=== PATIENT | female | born 1980 | race Caucasian/White ===

== ENCOUNTER 2019-04-04 09:54 | Observation (INO) ==
[2019-04-04] MEDS ORDERED: Aspirin 81 MG TAB.CHEW PO ONE (10:22)
--- NOTE | 2019-04-04 10:53 | Emergency Department Note ---
Disposition Clinical Impression: Palpitations, Heart murmur Syncope Qualifiers: Syncope type: unspecified Qualified Code(s): R55 - Syncope and collapse Chest pain Qualifiers: Chest pain type: unspecified Qualified Code(s): R07.9 - Chest pain, unspecified Disposition: Admitted As Inpatient Condition: Fair Referrals: Radha Asif CNP [Primary Care Provider] - Forms: ED Satisfaction Letter Time of Disposition: 15:08 Syncope HPI - General Chief Complaint: ED Syncope Stated Complaint: Chest tightness,Syncopal episode Time Seen by Provider: 04/04/19 10:13 Source: patient Mode of arrival: private vehicle Limitations: no limitations Nursing Notes Reviewed: Yes Vital Signs Reviewed: Yes - History of Present Illness HPI Narrative: 38-year-old nontoxic-appearing female arrives to the ED by private vehicle complaining of a syncopal episode at home around 4:30. Patient was taking her dog outside and when she passed out. When the patient came to, her head was laying on a landscaping timber and she had dropped her dog's leash. SHe states that she does have a headache but she has migraines and this is her "normal" headache. Patient states that after the syncopal episode her bilateral lower extremities were very weak and she could barely carry herself back into the house. Denies bilateral lower extremity swelling or tenderness. SHe states that bilateral lower extremity weakness has resolved. Patient denies shortness of breath. States that she came extremely diaphoretic after the syncopal episode. Patient complains of intermittent chest pressure that occurs at rest. She describes this chest pressure as "someone sitting on my chest". At its maximum after symptom onset, she rated it a 5 out of 10 on a 10 point scale. Currently, she rates it only a 1 out of 10 on a 10 point scale. Denies neck pain or back pain. She does state that she had a prodrome of palpitations, describing these as "my heart was trying to beat out of my chest". The patient's have resolved. She denies any prior cardiac history or previous similar symptoms. He is a current daily smoker. No history of DVT or pulmonary embolism. She does complain of some residual numbness and tingling of the left hand. She denies any visual disturbances, nausea, vomiting, or shortness of b reath. She denies any productive cough, pain with inspiration, or hemoptysis. Pt Subjective Complaint: loss of consciousness Onset (ago): hour(s) (Around 4:30 AM) Number of episodes: 1 Duration: other (unknown) Description of Event: other (Unwitnessed) Prodromal Symptoms: headache, lightheaded Witnessed: no Context: other (Patient was standing, holding dog's leash) Injuries Sustained Associated with Event: none Current Symptoms: headache (History of migraines states "normal"headache), other (Numbness to left hand and fingers) History: none Treatments prior to arrival: other (After episode patient rested in her bed) Associated trauma secondary to event: No - Related Data Home Medications Medication Instructions Recorded Confirmed Topiramate [Topamax] 50 mg PO BID 11/27/15 04/04/19 Gabapentin [Neurontin] 100 mg PO DAILY 04/04/19 04/04/19 Levothyroxine [Synthroid] 25 mcg PO 04/04/19 Omeprazole [PriLOSEC] 1 cap PO DAILY 04/04/19 04/04/19 Trazodone HCl 50 mg PO DAILY 04/04/19 04/04/19 Previous Rx's Medication Instructions Recorded Hyoscyamine SL [Levsin Sl] 0.125 mg SL Q4HR PRN #42 tab.subl 02/24/16 Allergies Allergy/AdvReac Type Severity Reaction Status Date / Time meperidine [From Demerol] Allergy Hives Verified 03/07/17 07:25 prochlorperazine Allergy Hives Verified 03/07/17 07:25 [From Compazine] promethazine [From Phenergan] Allergy Hives Verified 03/07/17 07:25 terbutaline [From Brethine] Allergy Hives Verified 03/07/17 07:25 All systems ED: reviewed and negative except as stated. Review of Systems: As Per HPI Constitutional: Denies: fever, chills, weakness, weight change Eyes: Denies: eye pain, eye discharge, vision change ENT ED: Denies: ear pain, throat pain, dental pain, hearing loss, epistaxis, congestion, dysphagia Cardiovascular: Reports: as per HPI, chest pain, palpitations (Intermittent "chest pressure"), syncope. Denies: dyspnea on exertion, edema Respiratory: Denies: cough, dyspnea, wheezes, hemoptysis, stridor Gastrointestinal: Denies: abdominal pain, nausea, vomiting, diarrhea, constipation, hematemesis, melena, hematochezia Genitourinary: Denies: dysuria, frequency, hematuria, discharge Musculoskeletal: Denies: back pain, neck pain, arthralgia, myalgia Integumentary: Denies: rash, abrasion, lesions Neurological: Reports: weakness (Bilateral lower extremities now resolved), paresthesias (Left palm and fingers). Denies: headache, numbness, confusion, abnormal gait, vertigo Psychiatric: Denies: anxiety, depression, suicidal thoughts, homicidal thoughts, auditory hallucinations, visual hallucinations Endocrine: Denies: fatigue Hematological/Lymphatic: Denies: easy bleeding, easy bruising Allergic/Immunologic: Denies: facial swelling, urticaria Past Medical History - Past Medical History Attestation: Yes The following information was validated with the patient. Source: patient, nursing notes reviewed Medical history: Reports: migraine, thyroid disease Surgical history: Reports: appendectomy, , cholecystectomy, thyroidectomy, other (tubal ligation) Psychiatric history: Reports: anxiety, depression [employer] history: Reports: endometriosis, bilateral tubal ligation LMP comments: other (Patient denies having periods. Received Depo-Provera shot last month) - Social History Smoking Status: Current every day smoker Smokeless Tobacco Status: No Alcohol use: Reports: rarely Drug use: Reports: none Physical Exam - General Limitations: no limitations General appearance: alert, in no apparent distress - Head Head exam: atraumatic, normocephalic, normal inspection - Eye Eye exam: Present: normal appearance, PERRL, EOMI. Absent: conjunctival injection - ENT ENT exam: mucous membranes moist - Neck Neck exam: Present: normal inspection, full ROM. Absent: tenderness, lymphadenopathy - Chest Chest inspection: Present: normal inspection, symmetric chest wall rise - Respiratory Respiratory exam: Present: normal lung sounds bilaterally. Absent: respiratory distress, wheezes, accessory muscle use - Cardiovascular Cardiovascular exam: Present: regular rate, normal rhythm, normal heart sounds - Abdominal Exam Abdominal exam: Present: soft, Non-Tender, normal bowel sounds. Absent: distention, guarding, rebound, rigidity - Extremities Exam Extremities exam: Present: normal inspection, full ROM, normal capillary refill. Absent: tenderness - Expanded Lower Extremity Exam Lower leg exam: Absent: Homans' sign - Back Exam Back exam: Present: normal inspection, full ROM. Absent: tenderness - Neurological Exam Neurological exam: Present: alert, oriented X3. Absent: motor sensory deficit - Expanded Neurological Exam Patient oriented to: Present: person, place, time Speech: Present: fluid speech Cranial nerves: EOM function (II, III, IV, ): Normal, facial sensation (V): Normal, facial palsy (VII): Normal, spinal accessory function (XI): Normal, tongue deviation (XII): Normal Cerebellar function: finger to nose: Normal, heel to garcia: Normal Motor strength - LUE: 5/5 Motor strength - RUE: 5/5 Motor strength - LLE: 5/5 Motor strength - RLE: 5/5 Sensory exam upper extremity: light touch: Normal Sensory exam lower extremity: light touch: Normal Coma Scale Eye Opening: Spontaneous Coma Scale Motor Response: Obeys Commands Coma Scale Verbal Response: Oriented Coma Scale Total: 15 - Psychiatric Psychiatric exam: Present: normal affect, normal mood - Skin Skin exam: Present: warm, dry, intact, normal color. Absent: rash, cyanosis, diaphoresis, erythema, pallor, mottled Course Course Narrative: Patient is currently asymptomatic. She is pain-free. She is no longer experiencing the palpitations. I have discussed this patient's case with Dr. Abernathy, ED attending. He has had a [id number] evaluation with the patient, reviewed her laboratory and radiology workup and agrees with consultation with cardiology. Dr. Abernathy conversed with Dr. Bess regarding this patient's case. The patient states that she has never had her heart murmur fully evaluated. She has no other cardiac history however does state that her daughter was born with congenital aortic stenosis which required surgical correction. Given these findings and the patient's symptoms, Dr. Bess recommends admission to medicine, obtaining an echocardiogram, and having cardiology consult with the patient in house. I discussed this plan with the patient the patient is in agreement. 1500: I spoke with Dr. Graves of the hospitalist service who has graciously accepted the patient for admission to the hospitalist care with in-house cardiology consultation. She does request neurology consultation as well. I w ill contact the on-call neurology specialist and a consultation will be placed to [facility]. 1530: I spoke with Brock Ayala CNP with the neurology group. He states that neurology will be happy to consult the patient in house. Vital Signs Temperature 98.4 F 04/04/19 09:56 Pulse Rate 88 04/04/19 09:56 Respiratory Rate 20 04/04/19 09:56 Blood Pressure 115/75 04/04/19 09:56 O2 Sat by Pulse Oximetry 98 04/04/19 09:56 Temperature 98.4 F 04/04/19 10:32 Pulse Rate 70 04/04/19 15:00 Respiratory Rate 16 04/04/19 15:00 Blood Pressure 100/63 04/04/19 15:00 O2 Sat by Pulse Oximetry 100 04/04/19 15:00 Oxygen Delivery Oxygen Delivery Room Air Syncope - Medical Records Medical records reviewed: Yes I reviewed the patient's medical records. - Lab Data Lab results reviewed: Yes I reviewed the patient's lab results. Lab results narrative: Lab Results 04/04/19 04/04/19 04/04/19 Range/Units 10:35 10:35 10:35 WBC 8.7 (4.3-11.1) K/mcL RBC 4.16 (3.82-4.97) M/mcL Hgb 12.8 (11.5-15.4) g/dL Hct 39.4 (35.3-44.9) % MCV 94.7 (83.0-100.0) fL MCH 30.8 (28.0-33.3) pg MCHC 32.5 (31.6-35.5) g/dL RDW 13.4 (11.5-14.5) % Plt Count 287 (140-400) K/mcL MPV 9.3 L (9.4-12.4) fL Immature Gran % 0.3 (0-4) % Seg Neutrophils % 81.8 % Lymphocytes % 11.0 % Monocytes % 6.1 % Eosinophils % 0.6 % Basophils % 0.2 % Neutrophils # 7.1 (1.6-8.9) K/mcL Lymphocytes # 1.0 (0.6-4.6) K/mcL Monocytes # 0.5 (0.0-1.3) K/mcL Eosinophils # 0.1 (0.0-0.6) K/mcL Basophils # 0.0 (0.0-0.2) K/mcL PT 11.8 (9.4-12.1) Seconds INR 1.0 APTT 28.8 (26.0-36.0) Seconds D-Dimer 1433 H (0-500) ng/mLFEU Sodium 141 (136-145) mEq/L Potassium 3.5 (3.5-5.1) mEq/L Chloride 111 H (98-107) mEq/L Carbon Dioxide 21 L (23-29) mEq/L BUN 15 (6-20) mg/dL Creatinine 0.80 (0.60-1.20) mg/dL Est GFR ( Amer) > 60 (> 60) Est GFR (Non-Af Amer) > 60 (> 60) BUN/Creatinine Ratio 19 (6-26) Glucose 94 (70-105) mg/dL Calculated Osmolality 293 (280-300) Calcium 8.9 (8.6-10.3) mg/dL Troponin I < 0.03 (< 0.04) ng/mL Urine Color (Yellow) Urine Clarity (Clear) Urine pH (5.0-8.0) pH Units Ur Specific [place] (1.010-1.025) Urine Protein (Neg-Trace) mg/dL Urine Glucose (UA) (Normal) mg/dL Urine Ketones (Negative) mg/dL Urine Blood (Negative) Urine Nitrite (Negative) Urine Bilirubin (Negative) Urine Urobilinogen (Normal) mg/dL Ur Leukocyte Esterase (Negative) Ur Culture Indicated? (NO) Urine Test (Negative) Urine Opiates Screen (Dewjkd=058) ng/mL Ur Barbiturates Screen (Schlcj=231) ng/mL Ur Phencyclidine Scrn (Cutoff=25) ng/mL Ur Amphetamines Screen (Xtgyaq=2740) ng/mL U Benzodiazepines Scrn (Eqhlmh=591) ng/mL Urine Cocaine Screen (Cutoff= 300) ng/mL U Marijuana (THC) Screen (Cutoff = 50) ng/mL Ur Drug Screen Interp 04/04/19 04/04/19 04/04/19 Range/Units 11:50 11:50 11:50 WBC (4.3-11.1) K/mcL RBC (3.82-4.97) M/mcL Hgb (11.5-15.4) g/dL Hct (35.3-44.9) % MCV (83.0-100.0) fL MCH (28.0-33.3) pg MCHC (31.6-35.5) g/dL RDW (11.5-14.5) % Plt Count (140-400) K/mcL MPV (9.4-12.4) fL Immature Gran % (0-4) % Seg Neutrophils % % Lymphocytes % % Monocytes % % Eosinophils % % Basophils % % Neutrophils # (1.6-8.9) K/mcL Lymphocytes # (0.6-4.6) K/mcL Monocytes # (0.0-1.3) K/mcL Eosinophils # (0.0-0.6) K/mcL Basophils # (0.0-0.2) K/mcL PT (9.4-12.1) Seconds INR APTT (26.0-36.0) Seconds D-Dimer (0-500) ng/mLFEU Sodium (136-145) mEq/L Potassium (3.5-5.1) mEq/L Chloride (98-107) mEq/L Carbon Dioxide (23-29) mEq/L BUN (6-20) mg/dL Creatinine (0.60-1.20) mg/dL Est GFR ( Amer) (> 60) Est GFR (Non-Af Amer) (> 60) BUN/Creatinine Ratio (6-26) Glucose (70-105) mg/dL Calculated Osmolality (280-300) Calcium (8.6-10.3) mg/dL Troponin I (< 0.04) ng/mL Urine Color Yellow (Yellow) Urine Clarity Clear (Clear) Urine pH 6.0 (5.0-8.0) pH Units Ur Specific [place] 1.015 (1.010-1.025) Urine Protein Negative (Neg-Trace) mg/dL Urine Glucose (UA) Normal (Normal) mg/dL Urine Ketones Negative (Negative) mg/dL Urine Blood Negative (Negative) Urine Nitrite Negative (Negative) Urine Bilirubin Negative (Negative) Urine Urobilinogen Normal (Normal) mg/dL Ur Leukocyte Esterase Negative (Negative) Ur Culture Indicated? NO (NO) Urine Test Negative (Negative) Urine Opiates Screen Negative (Kgwpum=113) ng/mL Ur Barbiturates Screen Negative (Elcwza=327) ng/mL Ur Phencyclidine Scrn Negative (Cutoff=25) ng/mL Ur Amphetamines Screen Negative (Duoyyn=1530) ng/mL U Benzodiazepines Scrn Negative (Jicnig=747) ng/mL Urine Cocaine Screen Negative (Cutoff= 300) ng/mL U Marijuana (THC) Screen Negative (Cutoff = 50) ng/mL Ur Drug Screen Interp See Below Result diagrams: 04/04/19 10:35 04/04/19 10:35 Lab Results 04/04/19 04/04/19 04/04/19 Range/Units 10:35 10:35 10:35 WBC 8.7 (4.3-11.1) K/mcL RBC 4.16 (3.82-4.97) M/mcL Hgb 12.8 (11.5-15.4) g/dL Hct 39.4 (35.3-44.9) % MCV 94.7 (83.0-100.0) fL MCH 30.8 (28.0-33.3) pg MCHC 32.5 (31.6-35.5) g/dL RDW 13.4 (11.5-14.5) % Plt Count 287 (140-400) K/mcL MPV 9.3 L (9.4-12.4) fL Immature Gran % 0.3 (0-4) % Seg Neutrophils % 81.8 % Lymphocytes % 11.0 % Monocytes % 6.1 % Eosinophils % 0.6 % Basophils % 0.2 % Neutrophils # 7.1 (1.6-8.9) K/mcL Lymphocytes # 1.0 (0.6-4.6) K/mcL Monocytes # 0.5 (0.0-1.3) K/mcL Eosinophils # 0.1 (0.0-0.6) K/mcL Basophils # 0.0 (0.0-0.2) K/mcL PT 11.8 (9.4-12.1) Seconds INR 1.0 APTT 28.8 (26.0-36.0) Seconds D-Dimer 1433 H (0-500) ng/mLFEU Sodium 141 (136-145) mEq/L Potassium 3.5 (3.5-5.1) mEq/L Chloride 111 H (98-107) mEq/L Carbon Dioxide 21 L (23-29) mEq/L BUN 15 (6-20) mg/dL Creatinine 0.80 (0.60-1.20) mg/dL Est GFR ( Amer) > 60 (> 60) Est GFR (Non-Af Amer) > 60 (> 60) BUN/Creatinine Ratio 19 (6-26) Glucose 94 (70-105) mg/dL Calculated Osmolality 293 (280-300) Calcium 8.9 (8.6-10.3) mg/dL Troponin I < 0.03 (< 0.04) ng/mL Urine Color (Yellow) Urine Clarity (Clear) Urine pH (5.0-8.0) pH Units Ur Specific [place] (1.010-1.025) Urine Protein (Neg-Trace) mg/dL Urine Glucose (UA) (Normal) mg/dL Urine Ketones (Negative) mg/dL Urine Blood (Negative) Urine Nitrite (Negative) Urine Bilirubin (Negative) Urine Urobilinogen (Normal) mg/dL Ur Leukocyte Esterase (Negative) Ur Culture Indicated? (NO) Urine Test (Negative) Urine Opiates Screen (Gsyukw=359) ng/mL Ur Barbiturates Screen (Hzqqdo=698) ng/mL Ur Phencyclidine Scrn (Cutoff=25) ng/mL Ur Amphetamines Screen (Nudqay=1927) ng/mL U Benzodiazepines Scrn (Sjkckv=653) ng/mL Urine Cocaine Screen (Cutoff= 300) ng/mL U Marijuana (THC) Screen (Cutoff = 50) ng/mL Ur Drug Screen Interp 04/04/19 04/04/19 04/04/19 Range/Units 11:50 11:50 11:50 WBC (4.3-11.1) K/mcL RBC (3.82-4.97) M/mcL Hgb (11.5-15.4) g/dL Hct (35.3-44.9) % MCV (83.0-100.0) fL MCH (28.0-33.3) pg MCHC (31.6-35.5) g/dL RDW (11.5-14.5) % Plt Count (140-400) K/mcL MPV (9.4-12.4) fL Immature Gran % (0-4) % Seg Neutrophils % % Lymphocytes % % Monocytes % % Eosinophils % % Basophils % % Neutrophils # (1.6-8.9) K/mcL Lymphocytes # (0.6-4.6) K/mcL Monocytes # (0.0-1.3) K/mcL Eosinophils # (0.0-0.6) K/mcL Basophils # (0.0-0.2) K/mcL PT (9.4-12.1) Seconds INR APTT (26.0-36.0) Seconds D-Dimer (0-500) ng/mLFEU Sodium (136-145) mEq/L Potassium (3.5-5.1) mEq/L Chloride (98-107) mEq/L Carbon Dioxide (23-29) mEq/L BUN (6-20) mg/dL Creatinine (0.60-1.20) mg/dL Est GFR ( Amer) (> 60) Est GFR (Non-Af Amer) (> 60) BUN/Creatinine Ratio (6-26) Glucose (70-105) mg/dL Calculated Osmolality (280-300) Calcium (8.6-10.3) mg/dL Troponin I (< 0.04) ng/mL Urine Color Yellow (Yellow) Urine Clarity Clear (Clear) Urine pH 6.0 (5.0-8.0) pH Units Ur Specific [place] 1.015 (1.010-1.025) Urine Protein Negative (Neg-Trace) mg/dL Urine Glucose (UA) Normal (Normal) mg/dL Urine Ketones Negative (Negative) mg/dL Urine Blood Negative (Negative) Urine Nitrite Negative (Negative) Urine Bilirubin Negative (Negative) Urine Urobilinogen Normal (Normal) mg/dL Ur Leukocyte Esterase Negative (Negative) Ur Culture Indicated? NO (NO) Urine Test Negative (Negative) Urine Opiates Screen Negative (Xpedrd=170) ng/mL Ur Barbiturates Screen Negative (Xlrkix=401) ng/mL Ur Phencyclidine Scrn Negative (Cutoff=25) ng/mL Ur Amphetamines Screen Negative (Xcreir=4456) ng/mL U Benzodiazepines Scrn Negative (Wmlukm=760) ng/mL Urine Cocaine Screen Negative (Cutoff= 300) ng/mL U Marijuana (THC) Screen Negative (Cutoff = 50) ng/mL Ur Drug Screen Interp See Below 04/04/19 Range/Units 13:38 WBC (4.3-11.1) K/mcL RBC (3.82-4.97) M/mcL Hgb (11.5-15.4) g/dL Hct (35.3-44.9) % MCV (83.0-100.0) fL MCH (28.0-33.3) pg MCHC (31.6-35.5) g/dL RDW (11.5-14.5) % Plt Count (140-400) K/mcL MPV (9.4-12.4) fL Immature Gran % (0-4) % Seg Neutrophils % % Lymphocytes % % Monocytes % % Eosinophils % % Basophils % % Neutrophils # (1.6-8.9) K/mcL Lymphocytes # (0.6-4.6) K/mcL Monocytes # (0.0-1.3) K/mcL Eosinophils # (0.0-0.6) K/mcL Basophils # (0.0-0.2) K/mcL PT (9.4-12.1) Seconds INR APTT (26.0-36.0) Seconds D-Dimer (0-500) ng/mLFEU Sodium (136-145) mEq/L Potassium (3.5-5.1) mEq/L Chloride (98-107) mEq/L Carbon Dioxide (23-29) mEq/L BUN (6-20) mg/dL Creatinine (0.60-1.20) mg/dL Est GFR ( Amer) (> 60) Est GFR (Non-Af Amer) (> 60) BUN/Creatinine Ratio (6-26) Glucose (70-105) mg/dL Calculated Osmolality (280-300) Calcium (8.6-10.3) mg/dL Troponin I < 0.03 (< 0.04) ng/mL Urine Color (Yellow) Urine Clarity (Clear) Urine pH (5.0-8.0) pH Units Ur Specific [place] (1.010-1.025) Urine Protein (Neg-Trace) mg/dL Urine Glucose (UA) (Normal) mg/dL Urine Ketones (Negative) mg/dL Urine Blood (Negative) Urine Nitrite (Negative) Urine Bilirubin (Negative) Urine Urobilinogen (Normal) mg/dL Ur Leukocyte Esterase (Negative) Ur Culture Indicated? (NO) Urine Test (Negative) Urine Opiates Screen (Osvylo=616) ng/mL Ur Barbiturates Screen (Uqolzc=862) ng/mL Ur Phencyclidine Scrn (Cutoff=25) ng/mL Ur Amphetamines Screen (Ueqvza=2433) ng/mL U Benzodiazepines Scrn (Pzwiho=759) ng/mL Urine Cocaine Screen (Cutoff= 300) ng/mL U Marijuana (THC) Screen (Cutoff = 50) ng/mL Ur Drug Screen Interp - Radiology Data Radiology results reviewed: Yes I reviewed the patient's radiology results. Chest X-Ray 04/04/19 10:22 IMPRESSION: No acute process. D/ / Edgar Coronado MD / Edgar Coronado MD Interpreting Provider: Edgar Coronado MD Head CT 04/04/19 11:04 IMPRESSION: Stable appearance of the brain with no acute intracranial abnormality. D/ / Jose Armando Rojas MD / Jose Armando Rojas MD Interpreting Provider: Jose Armando Rojas MD Chest CTA 04/04/19 12:42 IMPRESSION: 1. No evidence for acute pulmonary embolism. 2. No evidence for pneumonia. 3. A hyperdense 12 mm posterior left breast nodule along the nipple line probably a cyst. Consider ultrasound correlation. D/ / Suraj Marie MD / Suraj Marie MD Interpreting Provider: Suraj Marie MD - EKG Data EKG attestation: Yes I reviewed and interpreted this EKG. EKG results narrative: EKG shows a normal sinus rhythm with left axis deviation. Ventricular rate 82 bpm. MS interval 140, QRS duration 92, QT/QTc interval 353/and 392. No ectopy noted. No ST elevation or significant depressions. No significant change in morphology when compared to an EKG dated from 11/20/18.
[2019-04-04 11:17] LABS: Basophils % 0.2 %; Eosinophils # 0.1 K/mcL (0.0-0.6); Eosinophils % 0.6 %; Hematocrit 39.4 % (35.3-44.9); Hemoglobin 12.8 g/dL (11.5-15.4); Immature Granulocytes % 0.3 % (0-4); Mean Corpuscular HGB Conc 32.5 g/dL (31.6-35.5); Mean Corpuscular Hemoglobin 30.8 pg (28.0-33.3); Mean Corpuscular Volume 94.7 fL (83.0-100.0); Mean Platelet Volume 9.3 fL (9.4-12.4); Monocytes # 0.5 K/mcL (0.0-1.3); Monocytes % 6.1 %; Neutrophils # 7.1 K/mcL (1.6-8.9); Platelet Count 287 K/mcL (140-400); Red Blood Count 4.16 M/mcL (3.82-4.97); Red Cell Distribution Width 13.4 % (11.5-14.5); Segmented Neutrophils % 81.8 %
[2019-04-04 11:26] LABS: BUN/Creatinine Ratio 19 (6-26); Blood Urea Nitrogen 15 mg/dL (6-20); Calcium 8.9 mg/dL (8.6-10.3); Carbon Dioxide 21 mEq/L (23-29); Chloride 111 mEq/L (98-107); Glucose 94 mg/dL (70-105); Osmolality,Calculated 293 (280-300); Potassium 3.5 mEq/L (3.5-5.1); Sodium 141 mEq/L (136-145); Troponin I < 0.03 ng/mL (< 0.04); eGFR For Non-African Americans > 60 (> 60)
[2019-04-04 11:30] LABS: Prothrombin Time 11.8 Seconds (9.4-12.1)
[2019-04-04 11:32] LABS: Activated Partial Thrombo Time 28.8 Seconds (26.0-36.0)
[2019-04-04 12:09] LABS: Bilirubin,Urine Negative (Negative); Blood,Urine Negative (Negative); Clarity,Urine Clear (Clear); Color,Urine Yellow (Yellow); Glucose,Urine (UA) Normal (Normal); Ketones,Urine Negative (Negative); Leukocyte Esterase,Urine Negative (Negative); Nitrite,Urine Negative (Negative); Protein,Urine Negative (Neg-Trace); Specific Gravity,Urine 1.015 (1.010-1.025); Urobilinogen,Urine Normal (Normal)
[2019-04-04 12:14] LABS: Amphetamine Screen,Urine Negative ng/mL (Cutoff=1000); Barbiturate Screen,Urine Negative ng/mL (Cutoff=200); Benzodiazepines Screen,Urine Negative ng/mL (Cutoff=200); Cannabinoid Screen,Urine Negative ng/mL (Cutoff = 50); Cocaine Screen,Urine Negative ng/mL (Cutoff= 300); Opiate Screen,Urine Negative ng/mL (Cutoff=300); Phencyclidine Screen,Urine Negative ng/mL (Cutoff=25)
[2019-04-04] MEDS ORDERED: Isovue-370 500 ML BOTTLE IVP ONE (12:42)
--- NOTE | 2019-04-04 14:45 | Emergency Department Note ---
Disposition Clinical Impression: Syncope, Palpitations, Chest pain, Heart murmur Disposition: Admitted As Inpatient Condition: Fair Referrals: Radha Asif CNP [Primary Care Provider] - Forms: ED Satisfaction Letter Time of Disposition: 14:45 General Adult HPI - General Chief complaint: ED Syncope Stated complaint: Chest tightness,Syncopal episode Time Seen by Provider: 04/04/19 10:13 Source: patient Mode of arrival: private vehicle Limitations: no limitations - History of Present Illness Pain Scale: 2 - Related Data Home Medications Medication Instructions Recorded Confirmed Topiramate [Topamax] 50 mg PO BID 11/27/15 09/12/16 FLUoxetine HCl [Prozac] 40 mg PO DAILY 09/12/16 09/12/16 Metoprolol XL (24 HR) Succ [Toprol 25 mg PO DAILY 09/12/16 09/12/16 Xl] Oxaprozin 600 mg PO BID 09/12/16 09/12/16 Pantoprazole Sodium [Protonix] 40 mg PO DAILY 09/12/16 09/12/16 Potassium Citrate [Urocit-K] 15 meq PO DAILY 09/12/16 09/12/16 hydrOXYzine HCl [Hydroxyzine HCl] 50 mg PO DAILY 09/12/16 09/12/16 Previous Rx's Medication Instructions Recorded Psyllium Husk [Fiber] 0.52 gm PO BID 30 Days capsule 01/17/16 Hydrocodone/Acetaminophen [[place] 1 tab PO Q6H PRN #12 tab 01/24/16 5-325 Tablet] Acetaminophen w/Cod 300-30 mg 1 each PO Q4HR PRN #20 tablet 02/06/16 [Tylenol w/Codeine #3] Hyoscyamine SL [Levsin Sl] 0.125 mg SL Q4HR PRN #42 tab.subl 02/24/16 Omeprazole [PriLOSEC] 40 mg PO DAILY #30 capsule. 02/24/16 raNITIdine HCl [Zantac] 150 mg PO BID #60 tablet 02/24/16 Ibuprofen [Motrin] 600 mg PO TID PRN #30 tab 06/23/16 ALPRAZolam [Xanax 0.5 MG Tablet] 0.25 mg PO PRN PRN #0 09/13/16 Ciprofloxacin [Cipro] 500 mg PO BID #20 tablet 12/22/16 Ondansetron ODT [Zofran ODT] 4 mg SL Q6HR PRN #10 tab.rapdis 12/22/16 metroNIDAZOLE [Flagyl] 500 mg PO TID #30 tablet 12/22/16 predniSONE [PredniSONE] 40 mg PO DAILY #14 tablet 12/22/16 cephALEXin [Keflex] 500 mg PO QID #40 capsule 02/13/17 metroNIDAZOLE [Flagyl] 500 mg PO BID #20 tablet 02/13/17 Clindamycin [Cleocin] 150 mg PO Q6HR #40 capsule 03/07/17 HYDROcodone/Acet 5/325 mg [[place] 1 tab PO Q6H PRN #10 tab 03/07/17 5-325 mg] Ciprofloxacin [Cipro] 500 mg PO BID #20 tablet 06/21/17 Ondansetron ODT [Zofran ODT] 4 mg SL Q6HR #8 tab.rapdis 06/21/17 PredniSONE [Deltasone] 40 mg PO DAILY 7 Days tablet 06/21/17 metroNIDAZOLE [Flagyl] 500 mg PO TID #30 tablet 06/21/17 Ondansetron ODT [Zofran ODT] 4 mg SL Q6HR #10 tab.rapdis 07/25/17 predniSONE [PredniSONE] 20 mg PO DAILY #20 tablet 07/25/17 PredniSONE [Deltasone] 20 mg PO DAILY #8 tablet 09/07/17 Naproxen 375 mg PO BID #10 tablet 02/06/19 Ondansetron ODT [Zofran ODT] 4 mg SL Q8HR PRN #12 tab.rapdis 02/06/19 Allergies Allergy/AdvReac Type Severity Reaction Status Date / Time meperidine [From Demerol] Allergy Hives Verified 03/07/17 07:25 prochlorperazine Allergy Hives Verified 03/07/17 07:25 [From Compazine] promethazine [From Phenergan] Allergy Hives Verified 03/07/17 07:25 terbutaline [From Brethine] Allergy Hives Verified 03/07/17 07:25 Constitutional: Denies: fever, chills, weakness, weight change Eyes: Denies: eye pain, eye discharge, vision change ENT ED: Denies: ear pain, throat pain, dental pain, hearing loss, epistaxis, congestion, dysphagia Cardiovascular: Reports: as per HPI, chest pain, palpitations (Intermittent "chest pressure"), syncope. Denies: dyspnea on exertion, edema Respiratory: Denies: cough, dyspnea, wheezes, hemoptysis, stridor Gastrointestinal: Denies: abdominal pain, nausea, vomiting, diarrhea, constipation, hematemesis, melena, hematochezia Genitourinary: Denies: dysuria, frequency, hematuria, discharge Musculoskeletal: Denies: back pain, neck pain, arthralgia, myalgia Integumentary: Denies: rash, abrasion, lesions Neurological: Reports: weakness (Bilateral lower extremities now resolved), paresthesias (Left palm and fingers). Denies: headache, numbness, confusion, abnormal gait, vertigo Psychiatric: Denies: anxiety, depression, suicidal thoughts, homicidal thoughts, auditory hallucinations, visual hallucinations Endocrine: Denies: fatigue Hematological/Lymphatic: Denies: easy bleeding, easy bruising Allergic/Immunologic: Denies: facial swelling, urticaria Past Medical History - Past Medical History Medical history: Reports: migraine, thyroid disease Surgical history: Reports: appendectomy, , cholecystectomy, thyroidectomy, other (tubal ligation) Psychiatric history: Reports: anxiety, depression RANGE AID history: Reports: endometriosis, bilateral tubal ligation - Social History Smoking Status: Current every day smoker Smokeless Tobacco Status: No Alcohol use: Reports: rarely Drug use: Reports: none Physical Exam - General Limitations: no limitations General appearance: alert, in no apparent distress Course Vital Signs Temperature 98.4 F 04/04/19 09:56 Pulse Rate 88 04/04/19 09:56 Respiratory Rate 20 04/04/19 09:56 Blood Pressure 115/75 04/04/19 09:56 O2 Sat by Pulse Oximetry 98 04/04/19 09:56 Temperature 98.4 F 04/04/19 10:32 Pulse Rate 82 04/04/19 14:00 Respiratory Rate 16 04/04/19 14:00 Blood Pressure 95/71 04/04/19 14:00 O2 Sat by Pulse Oximetry 100 04/04/19 14:00 Oxygen Delivery Oxygen Delivery Room Air Medical Decision Making - Lab Data Result diagrams: 04/04/19 10:35 04/04/19 10:35 Lab Results 05/30/19 05/30/19 05/30/19 Range/Units 10:35 10:35 10:35 WBC 8.7 (4.3-11.1) K/mcL RBC 4.16 (3.82-4.97) M/mcL Hgb 12.8 (11.5-15.4) g/dL Hct 39.4 (35.3-44.9) % MCV 94.7 (83.0-100.0) fL MCH 30.8 (28.0-33.3) pg MCHC 32.5 (31.6-35.5) g/dL RDW 13.4 (11.5-14.5) % Plt Count 287 (140-400) K/mcL MPV 9.3 L (9.4-12.4) fL Immature Gran % 0.3 (0-4) % Seg Neutrophils % 81.8 % Lymphocytes % 11.0 % Monocytes % 6.1 % Eosinophils % 0.6 % Basophils % 0.2 % Neutrophils # 7.1 (1.6-8.9) K/mcL Lymphocytes # 1.0 (0.6-4.6) K/mcL Monocytes # 0.5 (0.0-1.3) K/mcL Eosinophils # 0.1 (0.0-0.6) K/mcL Basophils # 0.0 (0.0-0.2) K/mcL PT 11.8 (9.4-12.1) Seconds INR 1.0 APTT 28.8 (26.0-36.0) Seconds D-Dimer 1433 H (0-500) ng/mLFEU Sodium 141 (136-145) mEq/L Potassium 3.5 (3.5-5.1) mEq/L Chloride 111 H (98-107) mEq/L Carbon Dioxide 21 L (23-29) mEq/L BUN 15 (6-20) mg/dL Creatinine 0.80 (0.60-1.20) mg/dL Est GFR ( Amer) > 60 (> 60) Est GFR (Non-Af Amer) > 60 (> 60) BUN/Creatinine Ratio 19 (6-26) Glucose 94 (70-105) mg/dL Calculated Osmolality 293 (280-300) Calcium 8.9 (8.6-10.3) mg/dL Troponin I < 0.03 (< 0.04) ng/mL Urine Color (Yellow) Urine Clarity (Clear) Urine pH (5.0-8.0) pH Units Ur Specific [place] (1.010-1.025) Urine Protein (Neg-Trace) mg/dL Urine Glucose (UA) (Normal) mg/dL Urine Ketones (Negative) mg/dL Urine Blood (Negative) Urine Nitrite (Negative) Urine Bilirubin (Negative) Urine Urobilinogen (Normal) mg/dL Ur Leukocyte Esterase (Negative) Ur Culture Indicated? (NO) Urine Test (Negative) Urine Opiates Screen (Jokmqq=633) ng/mL Ur Barbiturates Screen (Zszeae=349) ng/mL Ur Phencyclidine Scrn (Cutoff=25) ng/mL Ur Amphetamines Screen (Ynjzcs=6118) ng/mL U Benzodiazepines Scrn (Amroah=418) ng/mL Urine Cocaine Screen (Cutoff= 300) ng/mL U Marijuana (THC) Screen (Cutoff = 50) ng/mL Ur Drug Screen Interp 04/04/19 04/04/19 04/04/19 Range/Units 11:50 11:50 11:50 WBC (4.3-11.1) K/mcL RBC (3.82-4.97) M/mcL Hgb (11.5-15.4) g/dL Hct (35.3-44.9) % MCV (83.0-100.0) fL MCH (28.0-33.3) pg MCHC (31.6-35.5) g/dL RDW (11.5-14.5) % Plt Count (140-400) K/mcL MPV (9.4-12.4) fL Immature Gran % (0-4) % Seg Neutrophils % % Lymphocytes % % Monocytes % % Eosinophils % % Basophils % % Neutrophils # (1.6-8.9) K/mcL Lymphocytes # (0.6-4.6) K/mcL Monocytes # (0.0-1.3) K/mcL Eosinophils # (0.0-0.6) K/mcL Basophils # (0.0-0.2) K/mcL PT (9.4-12.1) Seconds INR APTT (26.0-36.0) Seconds D-Dimer (0-500) ng/mLFEU Sodium (136-145) mEq/L Potassium (3.5-5.1) mEq/L Chloride (98-107) mEq/L Carbon Dioxide (23-29) mEq/L BUN (6-20) mg/dL Creatinine (0.60-1.20) mg/dL Est GFR ( Amer) (> 60) Est GFR (Non-Af Amer) (> 60) BUN/Creatinine Ratio (6-26) Glucose (70-105) mg/dL Calculated Osmolality (280-300) Calcium (8.6-10.3) mg/dL Troponin I (< 0.04) ng/mL Urine Color Yellow (Yellow) Urine Clarity Clear (Clear) Urine pH 6.0 (5.0-8.0) pH Units Ur Specific [place] 1.015 (1.010-1.025) Urine Protein Negative (Neg-Trace) mg/dL Urine Glucose (UA) Normal (Normal) mg/dL Urine Ketones Negative (Negative) mg/dL Urine Blood Negative (Negative) Urine Nitrite Negative (Negative) Urine Bilirubin Negative (Negative) Urine Urobilinogen Normal (Normal) mg/dL Ur Leukocyte Esterase Negative (Negative) Ur Culture Indicated? NO (NO) Urine Test Negative (Negative) Urine Opiates Screen Negative (Cycili=478) ng/mL Ur Barbiturates Screen Negative (Plkthz=150) ng/mL Ur Phencyclidine Scrn Negative (Cutoff=25) ng/mL Ur Amphetamines Screen Negative (Vjrngm=7316) ng/mL U Benzodiazepines Scrn Negative (Nqunnh=938) ng/mL Urine Cocaine Screen Negative (Cutoff= 300) ng/mL U Marijuana (THC) Screen Negative (Cutoff = 50) ng/mL Ur Drug Screen Interp See Below 04/04/19 Range/Units 13:38 WBC (4.3-11.1) K/mcL RBC (3.82-4.97) M/mcL Hgb (11.5-15.4) g/dL Hct (35.3-44.9) % MCV (83.0-100.0) fL MCH (28.0-33.3) pg MCHC (31.6-35.5) g/dL RDW (11.5-14.5) % Plt Count (140-400) K/mcL MPV (9.4-12.4) fL Immature Gran % (0-4) % Seg Neutrophils % % Lymphocytes % % Monocytes % % Eosinophils % % Basophils % % Neutrophils # (1.6-8.9) K/mcL Lymphocytes # (0.6-4.6) K/mcL Monocytes # (0.0-1.3) K/mcL Eosinophils # (0.0-0.6) K/mcL Basophils # (0.0-0.2) K/mcL PT (9.4-12.1) Seconds INR APTT (26.0-36.0) Seconds D-Dimer (0-500) ng/mLFEU Sodium (136-145) mEq/L Potassium (3.5-5.1) mEq/L Chloride (98-107) mEq/L Carbon Dioxide (23-29) mEq/L BUN (6-20) mg/dL Creatinine (0.60-1.20) mg/dL Est GFR ( Amer) (> 60) Est GFR (Non-Af Amer) (> 60) BUN/Creatinine Ratio (6-26) Glucose (70-105) mg/dL Calculated Osmolality (280-300) Calcium (8.6-10.3) mg/dL Troponin I < 0.03 (< 0.04) ng/mL Urine Color (Yellow) Urine Clarity (Clear) Urine pH (5.0-8.0) pH Units Ur Specific [place] (1.010-1.025) Urine Protein (Neg-Trace) mg/dL Urine Glucose (UA) (Normal) mg/dL Urine Ketones (Negative) mg/dL Urine Blood (Negative) Urine Nitrite (Negative) Urine Bilirubin (Negative) Urine Urobilinogen (Normal) mg/dL Ur Leukocyte Esterase (Negative) Ur Culture Indicated? (NO) Urine Test (Negative) Urine Opiates Screen (Iregix=924) ng/mL Ur Barbiturates Screen (Kyxawv=813) ng/mL Ur Phencyclidine Scrn (Cutoff=25) ng/mL Ur Amphetamines Screen (Xmsvwa=7675) ng/mL U Benzodiazepines Scrn (Jowbqn=747) ng/mL Urine Cocaine Screen (Cutoff= 300) ng/mL U Marijuana (THC) Screen (Cutoff = 50) ng/mL Ur Drug Screen Interp Attestation Statement - Attestation Attestation: I have seen this patient with the mid level provider. I personally evaluated this patient. I reviewed the charting by the mid-level provider and in agreement with the charting including past medical history family history review of systems current history and physical examination laboratory testing and imaging. Please see documentation by the mid-level provider for full H&P and documentation. Patient presented emergency room with chief complaint of chest pain and syncope. The patient states she got up at about 4:00 this morning and walk her dog, she states that she was walking the dog and did not get very far when she felt a weird sensation in her chest felt like her heart skipped a beat and the next thing she knew she woke up on the ground, she states that she try to get up but was so weak in her legs that she had a hard time and ended up having to crawl back to the house. Patient states she sat on the couch for a while seemed to get better she did have a secondary episode of some chest discomfort and some palpitations did not actually pass out. She states it kind of went away and she was feeling better considered going to her workout class, but just felt fatigued and just did not feel right so eventually she got up the energy to come to the emergency department. She has never expressed anything like this in the past. She denies significant family history of cardiac disease although reports that her daughter had aortic stenosis requiring surgery as a child. She states that she was told several years ago that she had a heart murmur but never had any myriam luation thereof. She does not recall being told this is a child but has never had it evaluated as an adult. She denies recent travel surgery or immobilization. She endorses no current chest pain states that she just feels fatigued. She has no history of any cardiac related issues. On physical examination alert oriented 3 in no acute distress lungs are clear full nontender range motion of her neck. No JVD no carotid bruits. The patient does have a 306 systolic murmur, does not specifically sound like a blowing murmur, does not radiate to the carotids. No other abnormal heart sounds. No evidence of DVT. No focal neurologic abdomen modality. EKG was a normal sinus rhythm with no evidence of acute ischemia or hyperkalemia. CBC basic metabolic profile cardiac enzymes 2 sets were all within acceptable limits. D-dimer was elevated. CT PE protocol was ordered, which showed no evidence of acute findings. Secondary to her having a syncopal event, unwitnessed, with some weakness although it was bilateral lower extremities, a head CT was ordered which showed no evidence of acute findings. I contacted cardiology, Dr. Bess, to help out with outpatient follow-up, with consideration of Holter monitor or echocardiogram as an outpatient, However after discussion with cardiology in relation to this patient's symptomatology, he has requested that the patient be admitted for further evaluation of chest pain and syncope, he will provide consultation and has asked that the hospitalist admit the patient.
[2019-04-04] MEDS ORDERED: Ibuprofen 600 MG TABLET PO ONE (15:19)
[2019-04-04] MEDS ORDERED: traZODone 50 MG TABLET PO ONE (22:29)
[2019-04-04] MEDS ORDERED: Topiramate 25 MG TABLET PO ONE (22:30)
[2019-04-04] MEDS: Ibuprofen 400 MG TABLET PO PRN (22:54)
[2019-04-05] MEDS ORDERED: Naloxone 0.4 MG/ML INJ IVP PRN (02:26)
--- NOTE | 2019-04-05 03:06 | Internal Med History&Physical ---
Date of Encounter: 04/05/19 Time of Encounter: 01:30 Internal Medicine - H&P: HPI Chief complaint: Syncope, Chest Pain Admitted From: Home Plans for Post Hospital Care: Home History of present illness: Ms. Ayers is a 38 year old female with past medical history significant for heart murmur, thyroid disease, GERD, endometriosis, anxiety, depression, and tobacco abuse who presents for complaints of syncopal episode. Reports she got up yesterday morning to take her dog outside and felt like her heart skipped a beat and she completely passed out loosing consciousness and suspects she may have struck her head. Denies any feelings of lightheadedness or dizziness prior to her syncopal episode. When she woke up she reports being very diaphoretic and feeling very fatigued. She stated that her legs were both very weak and she had difficulty standing immediately after. Shortly after that she developed what she describes as a fluttering in her chest accompanied by chest pressure rated at 3/10 and numbness and tingling to her left hand. Symptoms resolved after a few minutes without intervention. She reports previous history of syncopal episode around one year ago but denies any other similar symptoms. How ever, further chart review shows other previous syncopal episodes. Reports known history of cardiac murmur but denies any previous work up for it. Also reported headache in ER that has since resolved, but describes it as being similar to what she experiences with her migraines. Symptoms remain resolved at this time. Currently denies any headache, numbness, tingling, dizziness, chest pain, shortness of breath, abdominal pain, bowel or bladder changes. ER reported EKG as sinus rhythm with left axis deviation, no ST elevation or significant depressions, and no significant change in morphology when compared to EKG from November 2018. ER completed a CT of the head which showed a stable appearance of the brain and no acute intracranial abnormality. ER also completed a chest x-ray which showed no acute process. Labs in ER showed an elevated d-dimer at 1433. ER also obtained CTA of the chest which showed no evidence for acute pulmonary embolism, no evidence of pneumonia, and a hyperden se 12 mm posterior left breast nodule on the nipple line that is suspected to be a cyst and recommends ultrasound for further evaluation. ER contacted on-call cardiology Dr. Bess who recommended obtaining an echocardiogram and cardiology would see in consult. ER also contacted on-call neurology Brock Ayala CNP who also agreed to see patient in consult. Past Med Surg Social Fam HX - Past Medical History Medical history: migraine, thyroid disease Psychiatric history: anxiety, depression - Past Surgical History Surgical History: appendectomy, , cholecystectomy, thyroidectomy, other Additional surgical history: R ovary and r fallopian tube removed - Social History Smoking Status: Current every day smoker Smokeless Tobacco Status: No Alcohol use: rarely Drug use: none - Family History Father Living Status: Still Living Hx Family Cardiac Disorders: Yes ([place]) Hx Family Respiratory Disorders: No Hx Family Cancer: No Hx Family GI Disorders: No Hx Family Endocrine Disorder: No Hx Family Neuromuscular Disorders: No Hx Family Neurologic Disorders: No Hx Family HEENT Disorders: No Hx Family Autoimmune Disorders: No Mother Living Status: Still Living Hx Family Cardiac Disorders: No Hx Family Respiratory Disorders: No Hx Family Cancer: No Hx Family GI Disorders: No Hx Family Endocrine Disorder: Yes (DM) Hx Family Neuromuscular Disorders: No Hx Family Neurologic Disorders: No Hx Family HEENT Disorders: No Hx Family Autoimmune Disorders: No Internal Medicine - H&P: Meds Hyoscyamine SL [Levsin Sl] 0.125 mg SL Q4HR PRN #42 tab.subl 02/24/16 [Rx] Gabapentin [Neurontin] 300 mg PO HS 04/04/19 [History] Levothyroxine [Synthroid] 25 mcg PO Q48H 04/04/19 [History] Omeprazole [PriLOSEC] 40 mg PO DAILY 04/04/19 [History] Topiramate 50 mg PO BID 04/04/19 [History] Trazodone HCl 50 mg PO HS 04/04/19 [History] Allergy/AdvReac Type Severity Reaction Status Date / Time meperidine [From Demerol] Allergy Hives Verified 03/07/17 07:25 prochlorperazine Allergy Hives Verified 03/07/17 07:25 [From Compazine] promethazine [From Phenergan] Allergy Hives Verified 03/07/17 07:25 terbutaline [From Brethine] Allergy Hives Verified 03/07/17 07:25 All Systems PM: A 10-system review of systems was performed and is negative for pertinent findings except as documented above in the HPI. - Constitutional Vitals: Temp Pulse Resp BP Pulse Ox 98.8 F 84 12 97/61 97 04/04/19 23:08 04/04/19 23:08 04/04/19 23:08 04/04/19 23:08 04/04/19 23:08 Exam: General: Alert and oriented. Skin:Normal color, no rash, no lesions. HEENT:Pupils equal, round and reactive. Cardiovascular:Chronic murmur noted. No JVD. Pulse regular. Lungs:Normal breath sounds, no wheezes or crackles. Abdomen:Soft, non-tender, no rigidity. Extremities:No deformity, no edema or tenderness, no joint swelling or clubbing. Neurological:Normal cognition and motor skills. NIHSS 0.. GCS 15. Pulses:Carotid and radial pulses normal +2. Rest of the physical exam is non contributory. Internal Med - H&P Results - Labs CBC & Chem 7: 04/04/19 10:35 04/04/19 10:35 Labs: Short CBC 04/04/19 Range/Units 10:35 WBC 8.7 (4.3-11.1) K/mcL Hgb 12.8 (11.5-15.4) g/dL Hct 39.4 (35.3-44.9) % Plt Count 287 (140-400) K/mcL Neutrophils # 7.1 (1.6-8.9) K/mcL BMP 04/04/19 10:35 Sodium 141 Potassium 3.5 Chloride 111 H Carbon Dioxide 21 L BUN 15 Creatinine 0.80 Glucose 94 Calcium 8.9 Cardiac Enzymes 04/04/19 04/04/19 04/04/19 Range/Units 10:35 13:38 23:55 Troponin I < 0.03 < 0.03 < 0.03 (< 0.04) ng/mL Urine 04/04/19 Range/Units 11:50 Urine Color Yellow (Yellow) Urine Clarity Clear (Clear) Urine pH 6.0 (5.0-8.0) pH Units Ur Specific [place] 1.015 (1.010-1.025) Urine Protein Negative (Neg-Trace) mg/dL Urine Glucose (UA) Normal (Normal) mg/dL - Impressions ITS Impressions Chest X-Ray 04/04/19 10:22 IMPRESSION: No acute process. D/ / Edgar Coronado MD / Edgar Coronado MD Interpreting Provider: Edgar Coronado MD Head CT 04/04/19 11:04 IMPRESSION: Stable appearance of the brain with no acute intracranial abnormality. D/ / Jose Armando Rojas MD / Jose Armando Rojas MD Interpreting Provider: Jose Armando Rojas MD Chest CTA 04/04/19 12:42 IMPRESSION: 1. No evidence for acute pulmonary embolism. 2. No evidence for pneumonia. 3. A hyperdense 12 mm posterior left breast nodule along the nipple line probably a cyst. Consider ultrasound correlation. D/ / Suraj Marie MD / Suraj Marie MD Interpreting Provider: Suraj Marie MD Echocardiogram 04/04/19 14:48 Impressions: LVEF 65-70%. Normal LV chamber size, wall thickness and function. Normal right ventricular structure and function. Mild tricuspid regurgitation. No pulmonary hypertension. Left Ventricular Wall Motion: Rest Echo Findings All wall segments showed normal motion. Findings: Study Quality * Technically adequate exam. ECG Findings * Normal sinus rhythm. Left Ventricle * LVEF 65-70%. * Normal LV chamber size, wall thickness and systolic function. * Normal left ventricular diastolic function. Right Ventricle * Normal right ventricular structure and function. Left Atrium * Normal left atrial size. Right Atrium * Normal right atrial size. Interatrial Septum * No evidence of PFO by color Doppler. Aortic Valve * Trileaflet aortic valve with normal function. * No aortic stenosis. Elevated transvalvular and LVOT gradient due to dynamic LV. * No aortic regurgitation. Mitral Valve * Normal mitral valve structure. * No mitral stenosis. * Trace mitral regurgitation. Tricuspid Valve * Normal tricuspid valve structure. * No tricuspid stenosis. * Mild tricuspid regurgitation. * Estimated RVSP is 32 mmHg. * Estimated RA pressure is 8 mmHg. * No pulmonary hypertension. Pulmonic Valve * Pulmonic valve is not well visualized. * No pulmonic stenosis. * No pulmonic regurgitation. Aorta * Normally sized aortic root. Pericardium * The pericardium appears normal. IVC * The IVC is dilated. * > 50% respiratory change - Assessment and Plan (1) Syncope Current Visit: Yes Status: Acute Assessment and plan: Continuous cardiac monitoring. Echocardiogram ordered in ER. Neurology consulted by ER and will see in consult. Cardiology consulted by ER and will see in consult. Carotid Dopplers ordered. Orthostatic vital signs ordered. Qualifiers: Qualified Code(s): R55 - Syncope and collapse (2) Chest pain Current Visit: Yes Status: Acute Assessment and plan: Currently resolved. Occurred after syncopal episode. Continuous cardiac monitoring. Echocardiogram ordered by ER. Initial troponin negative, serial troponins ordered. Cardiology consulted by ER, will see patient in consult. Qualifiers: Chest pain type: unspecified Qualified Code(s): R07.9 - Chest pain, unspecified (3) Left hand paresthesia Current Visit: Yes Status: Acute Assessment and plan: Occurred with episode of chest pressure. Remains resolved at this time. Neurology consulted by ER and will see in consult. (4) Breast nodule Current Visit: Yes Status: Acute Assessment and plan: CTA of chest showed a hyperdense 12 mm posterior left breast nodule along the nipple line likely indicating a cyst recommending ultrasound for further evalua tion. Ultrasound ordered. (5) Cardiac murmur Current Visit: Yes Status: Chronic Assessment and plan: Known chronic murmur. Denies any previous workup. Echocardiogram ordered by ER. Cardiology consult ordered by ER, will see in consult. (6) Tobacco abuse Current Visit: Yes Status: Chronic Assessment and plan: Cessation strongly encouraged. - Time Spent With Patient Total time spent is greater than 50% in coordination of care (as documented) at patient's floor/unit and/or counseling patient:
[2019-04-05] MEDS ORDERED: Hyoscyamine SL 0.125 MG TAB.SUBL SL PRN (03:34)
[2019-04-05] MEDS ORDERED: Levothyroxine 25 MCG TABLET PO SCH (06:30)
[2019-04-05 06:52] LABS: Basophils % 0.7 %; Eosinophils # 0.2 K/mcL (0.0-0.6); Eosinophils % 3.1 %; Hematocrit 35.7 % (35.3-44.9); Hemoglobin 11.5 g/dL (11.5-15.4); Immature Granulocytes % 0.3 % (0-4); Lymphocytes % 32.6 %; Mean Corpuscular HGB Conc 32.2 g/dL (31.6-35.5); Mean Corpuscular Hemoglobin 30.9 pg (28.0-33.3); Mean Platelet Volume 9.5 fL (9.4-12.4); Monocytes # 0.4 K/mcL (0.0-1.3); Monocytes % 6.9 %; Neutrophils # 3.4 K/mcL (1.6-8.9); Platelet Count 269 K/mcL (140-400); Red Blood Count 3.72 M/mcL (3.82-4.97); Red Cell Distribution Width 13.5 % (11.5-14.5); Segmented Neutrophils % 56.4 %
[2019-04-05 07:16] LABS: BUN/Creatinine Ratio 17 (6-26); Blood Urea Nitrogen 12 mg/dL (6-20); Calcium 8.7 mg/dL (8.6-10.3); Carbon Dioxide 20 mEq/L (23-29); Chloride 112 mEq/L (98-107); Glucose 88 mg/dL (70-105); Osmolality,Calculated 293 (280-300); Potassium 3.5 mEq/L (3.5-5.1); Sodium 142 mEq/L (136-145); eGFR For Non-African Americans > 60 (> 60)
[2019-04-05] MEDS: Topiramate 25 MG TABLET PO SCH ×2 (08:50→21:07)
--- NOTE | 2019-04-05 09:02 | Neurology - Consult Note ---
Date of Encounter: 04/05/19 Time of Encounter: 09:00 Assessment and Plan (1) Syncope Current Visit: Yes Status: Chronic Patient has experienced an episode of syncope which I suspect is due to a vasovagal event. Upon awakening she was very diaphoretic. She denied any chest pain denied any headache previous to the event. Denied any visual changes. I am doubtful of seizure activity. Currently she is on telemetry and I agree that the cardiogenic etiologies should be ruled out. However neuroimaging and neurologic examination were normal. At this juncture I see no reason to suspect that there was a primary central nervous system etiology to explain this event. Otherwise, we will reevaluate at your request. Qualifiers: Syncope type: unspecified Qualified Code(s): R55 - Syncope and collapse History of Present Illness HPI: Ms. 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 Patient said she woke up at about 4:30 in the morning to let her dog out. She stated that while she was out with her dog she felt her heart beating fast. She states that she remembers falling and remembers the dog leash slipping out of her hand but does not remember anything else. She seems that she lost consciousness. She states when she woke up she was on the ground apparently her head and neck were laying on something in the yard but she did not suffer any trauma to the head and neck. No contusions or abrasions were noted. Denies any prodrome. However after arousing she was diffusely diaphoretic and states that her legs were weak. She stumbled apparently fell several times. Again she denied any headache denied any prodrome such as paresthesias confusion numbness tingling or weakness. She only felt her heart beating rapidly for a few seconds. She is not certain how long she was unconscious for. When she went into the house she did not seek medical attention immediately. Palate she went home and went to bed and woke up for 5 hours later and was supposed to go work out with her daughter. She states that she still did not feel well and was only then that she decided to seek medical attention. I did ask about any stress she denies this, she denies any dietary changes, she denied any chest pain she denied starting on any new medications. Nothing about this scenario suggestive of seizure activity. Electrolyte panel, serum glucose, ur ine tox screen and CT scan of the head were all negative. She is currently on telemetry. Past Med Surg Social Fam HX - Past Medical History Medical history: migraine, thyroid disease Psychiatric history: anxiety, depression - Past Surgical History Surgical History: appendectomy, , cholecystectomy, thyroidectomy, other Additional surgical history: R ovary and r fallopian tube removed - Social History Smoking Status: Current every day smoker Smokeless Tobacco Status: No Alcohol use: rarely Drug use: none - Family History Father Living Status: Still Living Hx Family Cardiac Disorders: Yes ([place]) Hx Family Respiratory Disorders: No Hx Family Cancer: No Hx Family GI Disorders: No Hx Family Endocrine Disorder: No Hx Family Neuromuscular Disorders: No Hx Family Neurologic Disorders: No Hx Family HEENT Disorders: No Hx Family Autoimmune Disorders: No Mother Living Status: Still Living Hx Family Cardiac Disorders: No Hx Family Respiratory Disorders: No Hx Family Cancer: No Hx Family GI Disorders: No Hx Family Endocrine Disorder: Yes ([place]) Hx Family Neuromuscular Disorders: No Hx Family Neurologic Disorders: No Hx Family HEENT Disorders: No Hx Family Autoimmune Disorders: No Medications and Allergies Hyoscyamine SL [Levsin Sl] 0.125 mg SL Q4HR PRN #42 tab.subl 02/24/16 [Rx] Gabapentin [Neurontin] 300 mg PO HS 04/04/19 [History] Levothyroxine [Synthroid] 25 mcg PO Q48H 04/04/19 [History] Omeprazole [PriLOSEC] 40 mg PO DAILY 04/04/19 [History] Topiramate 50 mg PO BID 04/04/19 [History] Trazodone HCl 50 mg PO HS 04/04/19 [History] Allergy/AdvReac Type Severity Reaction Status Date / Time meperidine [From Demerol] Allergy Hives Verified 03/07/17 07:25 prochlorperazine Allergy Hives Verified 03/07/17 07:25 [From Compazine] promethazine [From Phenergan] Allergy Hives Verified 03/07/17 07:25 terbutaline [From Brethine] Allergy Hives Verified 03/07/17 07:25 All Systems: The remainder of the systems were reviewed and are negative Review of Systems: The balance of the systems review is negative. Physical Examination - Vital Signs Vital Signs: Initial Vital Signs Temp Pulse Resp BP Pulse Ox 98.4 F 88 20 115/75 98 04/04/19 09:56 04/04/19 09:56 04/04/19 09:56 04/04/19 09:56 04/04/19 09:56 - Exam Exam: General Examination: *CONSTITUTIONAL: normal *GENERAL APPEARANCE OF PATIENT appears healthy and well groomed *EYES: pupils equal, round, reactive to light and accommodation, conjunctiva clear without masses or ulcerations, fundi normal. *CARDIOVASCULAR no peripheral edema, distal temperature normal, dorsalis pedis pulses normal. Refer to vital signs Musculoskeletal: *GAIT AND STATION normal, with normal Romberg testing, no abnormalities such as broad base gait or spasticity *ASSESSMENT OF MUSCLE STRENGTH IN THE UPPER AND LOWER EXTREMITIES deltoid, bicep, tricep, change of address clerk strength, hip flexors ,anterior tibialis, dorsoflexion of the foot normal. *MUSCLE TONE IN THE UPPER AND LOWER EXTREMITIES normal. No abnormal movements, fasciculations or atrophy identified. Neurological: *ORIENTATION to time and place *RECURRENT AND REMOTE MEMORY intact *ATTENTION AND CONCENTRATION are normal *LANGUAGE FUNCTION no significant aphasia or dysarthia was noted. *FUND OF KNOWLEDGE aware of current events, past history, vocabulary *MENTAL attention span and concentration normal. *CN II optic fundi were normal, no papilledema noted. *CN III,IV, PERRLA extraocular eye movements were full, no nystagmus and no ptosis noted. *CN V shows normal sensation and jaw opens symmetrically. *CN VII shows normal facial movement symmetrically, upper and lower bilaterally. *CN VIII shows no significant hearing loss on examination in the office. *CN IX,,X palate elevated symmetrically and normal gag reflex was noted. *CN XI normal strength in the sternocleidomastoid muscles, symmetrical shoulder shrugging. *CN XII tongue protruded in the midline, with normal strength and movement. *SENSORY EXAMINATION pinprick sensation intact, and light touch(vibration sense). *REFLEXES: deep tendon reflexes were normal and symmetrical , grade 2/4 diffusely, no pathological reflexes were noted. *CEREBELLAR TESTING normal finger to nose, heel/knee/garcia, and tandem walk. *PAIN LEVEL Results - Laboratory Findings CBC and BMP: 04/05/19 05:57 04/05/19 05:57 Abnormal lab findings: Abnormal lab results RBC 3.72 M/mcL (3.82-4.97) L 04/05/19 05:57 MPV 9.3 fL (9.4-12.4) L 04/04/19 10:35 1433 ng/mLFEU (0-500) H 04/04/19 10:35 Chloride 112 mEq/L (98-107) H 04/05/19 05:57 Carbon Dioxide 20 mEq/L (23-29) L 04/05/19 05:57 Consult Discharge Plan - Plan Referrals: Radha Asif, [facility] [Primary Care Provider] -
--- NOTE | 2019-04-05 11:43 | Electrocardiograph Report ---
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
--- NOTE | 2019-04-05 11:49 | Cardiology Consult Note ---
Date of Encounter: 04/05/19 Time of Encounter: 09:00 Assessment and Plan (1) Syncope Current Visit: Yes Status: Chronic Per cardiology: -?vasovagal syncope. -orthostatics negative. -TTE with LVEF preserved, no wall motion abnormalities. -ECG with SR. -NO events on telemetry. -Will check excercise ECG. Qualifiers: Syncope type: unspecified Qualified Code(s): R55 - Syncope and collapse (2) Palpitations Current Visit: Yes Status: Acute Per cardiology: -Reports palpitations 4 hours after syncopal event. -Telemetry reviewed with rare PVCs, rare PACs. No signifcant events on tele. -Denies current palpitations. -Will check excercise ECG. (3) Chest pain Current Visit: Yes Status: Acute Per cardiology: -Reports atypical chest pain. -Trops negative. -TTE with LVEF preserved, no wall motion abnormalities. -Will check exercise ECG. Qualifiers: Chest pain type: unspecified Qualified Code(s): R07.9 - Chest pain, unspecified Discussion w patient/family: The assessment and plan as outlined above was discussed with the patient and/or family members who expressed understanding and agreement. All questions were answered. Thank you for involving us in the care of your patient. Please call with any questions. Discussed and reviewed with . History of Present Illness Consult date: 04/04/19 Requesting physician: Earle Negrete Consult reason: syncope Chief complaint: syncope History of present illness: Ms. Ayers is a 38 year old female with a relevant past medical history of migraines, palpitations, anxiety, ulcerative colitis, thyroidectomy, who presented to [facility] with complaints of syncopal event. Patient states yesterday at 0430, when she was taking her dog out for a walk, felt her heart pounding and then the next thing she remembers, she woke up in the flower bed. Denies dizziness, lightheadedness. Denies visual changes. Denies loss of bowel or bladder. States she went and laid on the couch. Paeint states about 4 hours later, while on the couch, felt palpitations, fluttering, and chest pressure. Patient states that's when she decided to come into ER. Patient denies any symptoms since arrival to [facility]. Past Med Surg Social Fam HX - Past Medical History Attestation: Yes The following information was validated with the patient. Source: patient, old records reviewed Medical history: migraine, thyroid disease Psychiatric history: anxiety, depression - Past Surgical History Surgical History: appendectomy, , cholecystectomy, thyroidectomy, other Additional surgical history: R ovary and r fallopian tube removed - Social History Smoking Status: Current every day smoker Smokeless Tobacco Status: No Alcohol use: rarely Drug use: none - Family History Father Living Status: Still Living Hx Family Cardiac Disorders: Yes ([place]) Hx Family Respiratory Disorders: No Hx Family Cancer: No Hx Family GI Disorders: No Hx Family Endocrine Disorder: No Hx Family Neuromuscular Disorders: No Hx Family Neurologic Disorders: No Hx Family HEENT Disorders: No Hx Family Autoimmune Disorders: No Mother Living Status: Still Living Hx Family Cardiac Disorders: No Hx Family Respiratory Disorders: No Hx Family Cancer: No Hx Family GI Disorders: No Hx Family Endocrine Disorder: Yes (DM) Hx Family Neuromuscular Disorders: No Hx Family Neurologic Disorders: No Hx Family HEENT Disorders: No Hx Family Autoimmune Disorders: No Medications and Allergies Hyoscyamine SL [Levsin Sl] 0.125 mg SL Q4HR PRN #42 tab.subl 02/24/16 [Rx] Gabapentin [Neurontin] 300 mg PO HS 04/04/19 [History] Levothyroxine [Synthroid] 25 mcg PO Q48H 04/04/19 [History] Omeprazole [PriLOSEC] 40 mg PO DAILY 04/04/19 [History] Topiramate 50 mg PO BID 04/04/19 [History] Trazodone HCl 50 mg PO HS 04/04/19 [History] Allergy/AdvReac Type Severity Reaction Status Date / Time meperidine [From Demerol] Allergy Hives Verified 03/07/17 07:25 prochlorperazine Allergy Hives Verified 03/07/17 07:25 [From Compazine] promethazine [From Phenergan] Allergy Hives Verified 03/07/17 07:25 terbutaline [From Brethine] Allergy Hives Verified 03/07/17 07:25 All Systems Review: The remainder of the systems were reviewed and are negative - Cardiovascular Cardiovascular: as per HPI, chest pain at rest, palpitations - Neurological Neurological: syncope Physical Examination Vital Signs, Last 4 Hours Temp Pulse Resp BP Pulse Ox 04/05/19 10:51 97.8 F 73 14 99/61 96 04/05/19 08:39 97.4 F L 68 14 100/67 98 04/05/19 07:51 98.6 F 60 15 98/66 97 General: Conversant, No Apparent Distress HEENT: Atraumatic, Normocephaly, Mucus Membranes Moist Neck: No JVD, Normal carotid pulses Cardiac: Reg Rate and Rhythm, Normal S1 and S2, No Murmur Lungs: Normal Breath Sounds, No Wheeze, Rales, Rhonchi Neuro: Alert and responsive, No focal deficits noted Abdomen: Soft, Non-Tender Skin: No rashes noted on visualized skin Musculoskeletal: No Chest Wall Tenderness Extremities: No Clubbing, No Cyanosis, No Edema, Normal Pulses Results 04/05/19 05:57 04/05/19 05:57 Lab Results Impressions Chest X-Ray 04/04/19 10:22 IMPRESSION: No acute process. D/ / Edgar Coronado MD / Edgar Coronado MD Interpreting Provider: Edgar Coronado MD Head CT 04/04/19 11:04 IMPRESSION: Stable appearance of the brain with no acute intracranial abnormality. D/ / Jose Armando Rojas MD / Jose Armando Rojas MD Interpreting Provider: Jose Armando Rojas MD Chest CTA 04/04/19 12:42 IMPRESSION: 1. No evidence for acute pulmonary embolism. 2. No evidence for pneumonia. 3. A hyperdense 12 mm posterior left breast nodule along the nipple line probably a cyst. Consider ultrasound correlation. D/ / Suraj Marie MD / Suraj Marie MD Interpreting Provider: Suraj Marie MD Echocardiogram 04/04/19 14:48 Impressions: LVEF 65-70%. Normal LV chamber size, wall thickness and function. Normal right ventricular structure and function. Mild tricuspid regurgitation. No pulmonary hypertension. Left Ventricular Wall Motion: Rest Echo Findings All wall segments showed normal motion. Findings: Study Quality * Technically adequate exam. ECG Findings * Normal sinus rhythm. Left Ventricle * LVEF 65-70%. * Normal LV chamber size, wall thickness and systolic function. * Normal left ventricular diastolic function. Right Ventricle * Normal right ventricular structure and function. Left Atrium * Normal left atrial size. Right Atrium * Normal right atrial size. Interatrial Septum * No evidence of PFO by color Doppler. Aortic Valve * Trileaflet aortic valve with normal function. * No aortic stenosis. Elevated transvalvular and LVOT gradient due to dynamic LV. * No aortic regurgitation. Mitral Valve * Normal mitral valve structure. * No mitral stenosis. * Trace mitral regurgitation. Tricuspid Valve * Normal tricuspid valve structure. * No tricuspid stenosis. * Mild tricuspid regurgitation. * Estimated RVSP is 32 mmHg. * Estimated RA pressure is 8 mmHg. * No pulmonary hypertension. Pulmonic Valve * Pulmonic valve is not well visualized. * No pulmonic stenosis. * No pulmonic regurgitation. Aorta * Normally sized aortic root. Pericardium * The pericardium appears normal. IVC * The IVC is dilated. * > 50% respiratory change Active Medications Gabapentin (Neurontin) 300 mg PO HS [facility] Stop: 10/05/19 21:01 Hyoscyamine (Levsin Sl) 0.125 mg SL Q4HR PRN PRN Reason: GI tract spasm Stop: 10/05/19 03:35 Ibuprofen (Motrin) 400 mg PO Q8HR PRN PRN Reason: FEVER/PAIN Stop: 10/04/19 22:29 Last Admin: 04/04/19 22:54 Dose: 400 mg Documented by: Levothyroxine Sodium (Synthroid) 25 mcg PO Q48H [facility] Stop: 10/05/19 06:31 Last Admin: 04/05/19 05:23 Dose: 25 mcg Documented by: Naloxone HCl (Narcan) 0.4 mg IVP Q2MPRN PRN PRN Reason: SEE COMMENTS Stop: 10/05/19 02:27 Omeprazole (Prilosec) 40 mg PO 0630 [facility] Stop: 10/05/19 06:31 Last Admin: 04/05/19 05:23 Dose: 40 mg Documented by: Topiramate (Topamax) 50 mg PO BID [facility] Stop: 10/05/19 09:01 Last Admin: 04/05/19 08:50 Dose: 50 mg Documented by: Trazodone HCl (Trazodone) 50 mg PO HS DIOMEDES Stop: 10/05/19 21:01 Laboratory Tests 04/04/19 04/04/19 04/04/19 10:35 13:38 23:55 Troponin I < 0.03 < 0.03 < 0.03 - Imaging and Cardiology Chest Xray: report reviewed Stress Test: pending Echo: report reviewed - EKG Interpretation EKG results cardiology: personally reviewed (ECG with SR, HR 82.), other (Telemetry reviewed with average HR previous 12 hours noted to be 78, SR. PVCs and PACs noted.) Consult Discharge Plan - Plan Referrals: Radha Asif CNP [Primary Care Provider] -
--- NOTE | 2019-04-05 15:04 | Event Note ---
Date of Encounter: 04/05/19 Time of Encounter: 15:03 - Cardiology Event Note Discussed and reviewed with , if stress test negative, patient is ok for discharge. Recommend event monitor at discharge, ordered. Patient will follow with cardiology, follow up set.
[2019-04-05] MEDS ORDERED: Gabapentin 300 MG CAPSULE PO SCH (21:00)
[2019-04-05] MEDS ORDERED: traZODone 50 MG TABLET PO SCH (21:00)
[2019-04-06 07:10] VITALS: BP 98/58
[2019-04-06] MEDS: Topiramate 25 MG TABLET PO SCH (09:24)
[2019-04-06] MEDS: Ibuprofen 400 MG TABLET PO PRN (09:24)
--- NOTE | 2019-04-06 09:35 | Discharge Summary ---
- NOTES TO OUTPATIENT PROVIDER Notes to Outpatient Provider: f/u with PCP within a week. f/u with cardiology within a month. Orders not resulted at time of discharge: Pending orders 04/05/19 03:17 breast ultrasound - left [US breast LT] [US] Routine 04/05/19 15:03 ECG event monitor 4 weeks [ECG] Routine Date of Encounter: 04/06/19 Time of Encounter: 09:33 - Discharge Diagnosis (1) Syncope Priority: Primary Status: Acute Qualifiers: Qualified Code(s): R55 - Syncope and collapse (2) Chest pain Priority: Primary Status: Acute Qualifiers: Chest pain type: unspecified Qualified Code(s): R07.9 - Chest pain, un specified (3) Breast nodule Priority: Primary Status: Acute (4) Cardiac murmur Priority: Secondary Status: Chronic (5) Tobacco abuse Priority: Secondary Status: Chronic (6) Left hand paresthesia Priority: Primary Status: Acute Hospital course: Ms. Ayers is a 38 year old female with past medical history significant for heart murmur, thyroid disease, GERD, endometriosis, anxiety, depression, and tobacco abuse who presents for complaints of syncopal episode. Reports she got up yesterday morning to take her dog outside and felt like her heart skipped a beat and she completely passed out loosing consciousness and suspects she may have struck her head. Denies any feelings of lightheadedness or dizziness prior to her syncopal episode. When she woke up she reports being very diaphoretic and feeling very fatigued. She stated that her legs were both very weak and she had difficulty standing immediately after. Shortly after that she developed what she describes as a fluttering in her chest accompanied by chest pressure rated at 3/10 and numbness and tingling to her left hand. Symptoms resolved after a few minutes without intervention. She reports previous history of syncopal episode around one year ago but denies any other similar symptoms. However, further chart review shows other previous syncopal episodes. Reports known history of cardiac murmur but denies any previous work up for it. Also reported headache in ER that has since resolved, but describes it as being similar to what she experiences with her migraines. Symptoms remain resolved at this time. Currently denies any headache, numbness, tingling, dizziness, chest pain, shortness of breath, abdominal pain, bowel or bladder changes. ER reported EKG as sinus rhythm with left axis deviation, no ST elevation or significant depressions, and no significant change in morphology when compared to EKG from November 2018. ER completed a CT of the head which showed a stable appearance of the brain and no acute intracranial abnormality. ER also completed a chest x-ray which showed no acute process. Labs in ER showed an elevated d-dimer at 1433. ER also obtained CTA of the chest which showed no evidence for acute pulmonary embolism, no evidence of pneumonia, and a hyperdense 12 mm posterior left breast nodule on the nipple line that is suspected to be a cyst and recommends ultrasound for further evaluation. ER contacted on-call cardiology Dr. Bess who recommended obtaining an echocardiogram and cardiology would see in consult. ER also contacted on-call neurology Brock Ayala CNP who also agreed to see patient in consult. An echocardiogram was performed, which revealed LV ejection fraction 65-70%, normal LV chamber size, wall thickness, and a function, normal right ventricular structure and function, mild tricuspid regurgitation, and in no pulmonary hypertension. A stress nuclear test was also performed which was negative for ischemia or any abnormal EKG changes. Bilateral carotid carotid Doppler showed 60-79% of stenosis. Telemetry monitoring showed no detected arrhythmia. Cardiology recommended event recorder upon discharge. On the discharge today, patient has no chest pain, syncopal episode, or numbness. She will be discharged home today. Smoking cessation discussed with patient. Patient also was instructed to follow-up with PCP for further tests for the left breast mass. She will also follow up with cardiology as scheduled. Discharge discussed with: patient Time spent discussing smoking cessation with patient: more than 10 minutes - Time Spent with Patient Total time spent providing and/or coordinating discharge services: Time spent: Greater than 30 minutes - Discharge Medications Prescriptions: Continued Hyoscyamine SL [Levsin Sl] 0.125 mg SL Q4HR PRN #42 tab.subl PRN Reason: GI tract spasm Levothyroxine [Synthroid] 25 mcg PO Q48H Trazodone HCl 50 mg PO HS Gabapentin [Neurontin] 300 mg PO HS Omeprazole [PriLOSEC] 40 mg PO DAILY Topiramate 50 mg PO BID Home Medications: Hyoscyamine SL [Levsin Sl] 0.125 mg SL Q4HR PRN #42 tab.subl 02/24/16 [Rx] Gabapentin [Neurontin] 300 mg PO HS 04/04/19 [History] Levothyroxine [Synthroid] 25 mcg PO Q48H 04/04/19 [History] Omeprazole [PriLOSEC] 40 mg PO DAILY 04/04/19 [History] Topiramate 50 mg PO BID 04/04/19 [History] Trazodone HCl 50 mg PO HS 04/04/19 [History] Allergies/Adverse Reactions: Allergy/AdvReac Type Severity Reaction Status Date / Time meperidine [From Demerol] Allergy Hives Verified 03/07/17 07:25 prochlorperazine Allergy Hives Verified 03/07/17 07:25 [From Compazine] promethazine [From Phenergan] Allergy Hives Verified 03/07/17 07:25 terbutaline [From Brethine] Allergy Hives Verified 03/07/17 07:25 Date of admission: 04/04/19 16:10 Primary care physician: Radha Asif CNP Consults: 04/04/19 14:35 Consult to Cardiology [CONS] Stat Comment: Consulting Provider: Cardiology [place] Reason for Consult: syncope, chest pressure Time Notified: 14:35 Call Completed: Yes 04/04/19 15:44 Consult to Neurology [CONS] Stat Consulting Provider: [facility] Reason for Consult: Left hand Numbness and tingling Time Notified: 15:45 Call Completed: Yes Anticipated date of discharge: 04/06/19 - Constitutional Vitals: Temp Pulse Resp BP Pulse Ox 98.2 F 79 16 98/58 97 04/06/19 07:06 04/06/19 07:06 04/06/19 07:06 04/06/19 07:06 04/06/19 07:06 General appearance: Present: A&O X 3 Exam: General: Alert and oriented. Skin:Normal color, no rash, no lesions. HEENT:Pupils equal, round and reactive. Cardiovascular:Chronic murmur noted. No JVD. Pulse regular. Lungs:Normal breath sounds, no wheezes or crackles. Abdomen:Soft, non-tender, no rigidity. Extremities:No deformity, no edema or tenderness, no joint swelling or clubbing. Neurological:Normal cognition and motor skills. NIHSS 0.. GCS 15. Pulses:Carotid and radial pulses normal +2. Rest of the physical exam is non contributory. - Patient Status Disposition: Home, Self-Care Condition: Fair Functional capacity at discharge: independent ambulation Overall status at discharge: patient is progressing back to baseline - Discharge Instructions Follow Up With: Radha Asif CNP [Primary Care Provider] - - Diet and Activity Activity: increase activity as tolerated Diet: advance to your usual diet
--- NOTE | 2019-04-06 13:32 | Event Note ---
Date of Encounter: 04/06/19 Time of Encounter: 13:41 - Cardiology Event Note Standard stress test completed yesterday was negative for ischemia. Patient noted to have blunted blood pressure response. Occasional PVCs. Holter monitor placed on patient. Okay for discharge from cardiology standpoint. Outpatient follow-up set.
== END 2019-04-06 14:31 | disposition home or self-care (01) ==
LOC: 3BNU 09:54 → EMEROOARM 09:54 → 3BNU 17:00
PROVIDERS: ADMIT Internal Medicine Nephrology; ATTEND Internal Medicine Nephrology

== ENCOUNTER 2019-07-11 21:52 | Observation (INO) ==
[2019-07-11] MEDS ORDERED: Ketorolac 30 MG/ML VIAL IVP ONE (22:41)
[2019-07-11] MEDS ORDERED: 0.9 % Sodium Chloride 1,000 ML IVC ONE (22:41)
[2019-07-11] MEDS ORDERED: Ondansetron 4 MG/2 ML VIAL IVP ONE (22:41)
--- NOTE | 2019-07-11 22:41 | Emergency Department Note ---
Disposition Clinical Impression: Right kidney stone, Hydronephrosis concurrent with and due to calculi of kidney and ureter UTI (urinary tract infection) Qualifiers: Urinary tract infection type: site unspecified Hematuria presence: with hematuria Qualified Code(s): N39.0 - Urinary tract infection, site not specified Disposition: Admitted As Inpatient Condition: Fair Time of Disposition: 02:59 Abdominal Pain HPI - General Chief Complaint: ED Abdominal Pain Stated Complaint: Severe Abd/Back Pain Time Seen by Provider: 07/11/19 22:34 Source: patient Limitations: no limitations Nursing Notes Reviewed: Yes Vital Signs Reviewed: Yes - History of Present Illness HPI Narrative: 39 y/o female presents complaining of right flank pain radiating to her mid right abdomen. Denies any right lower quadrant tenderness. Complains of nausea Pt Subjective Complaint: flank pain (right) Onset (ago): day(s) (1) Consistency: constant, intermittent, Worsening Pain Severity: moderate, severe Pain Scale: 9 Quality: stabbing, sharp Radiation: RLQ Migration to: no migration Improves with: rest Worsens with: movement Associated symptoms: Reports: nausea. Denies: vomiting, diarrhea, hematemesis Treatments prior to arrival: none - Related Data Home Medications Medication Instructions Recorded Confirmed Gabapentin [Neurontin] 300 mg PO HS 04/04/19 07/11/19 Levothyroxine [Synthroid] 25 mcg PO Q48H 04/04/19 07/11/19 Omeprazole [PriLOSEC] 40 mg PO DAILY 04/04/19 07/11/19 Topiramate 50 mg PO BID 04/04/19 07/11/19 FLUoxetine HCl [Prozac] 40 mg PO DAILY 04/30/19 07/11/19 Trazodone HCl 100 mg PO HS 04/30/19 07/11/19 Previous Rx's Medication Instructions Recorded Hyoscyamine SL [Levsin Sl] 0.125 mg SL Q4HR PRN #42 tab.subl 02/24/16 Allergies Allergy/AdvReac Type Severity Reaction Status Date / Time meperidine [From Demerol] Allergy Hives Verified 05/24/19 21:15 prochlorperazine Allergy Hives Verified 05/24/19 21:15 [From Compazine] promethazine [From Phenergan] Allergy Hives Verified 05/24/19 21:15 terbutaline [From Brethine] Allergy Hives Verified 05/24/19 21:15 All systems ED: reviewed and negative except as stated. Constitutional: Denies: fever, chills, weakness, weight change Eyes: Denies: eye pain, eye discharge, vision change ENT ED: Denies: ear pain, throat pain, dental pain, hearing loss, epistaxis, congestion, dysphagia Cardiovascular: Denies: chest pain, palpitations, dyspnea on exertion, edema, syncope Respiratory: Denies: cough, dyspnea, wheezes, hemoptysis, stridor Gastrointestinal: Reports: abdominal pain, nausea. Denies: vomiting, diarrhea, constipation, hematemesis, melena, hematochezia Genitourinary: Reports: urgency. Denies: dysuria, frequency, hematuria, discharge Musculoskeletal: Reports: back pain. 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: Reports: endometriosis, bilateral tubal ligation Psychiatric history: Reports: anxiety, depression - Social History Smoking status: Current every day smoker Alcohol use: Reports: rarely Drug use: Reports: none Physical Exam - General Limitations: no limitations General appearance: alert - Head Head exam: atraumatic, normocephalic, normal inspection - Eye Eye exam: Present: normal appearance, PERRL, EOMI - Expanded Eye Exam Pupils: Left: reactive - ENT ENT exam: normal exam, normal oropharynx, mucous membranes moist - Expanded ENT Exam External ear exam: Present: normal external inspection Mouth exam: Present: normal external inspection Teeth exam: Present: normal inspection Throat exam: Present: normal inspection - Neck Neck exam: Present: normal inspection, full ROM, trachea midline - Chest Chest inspection: Present: normal inspection, symmetric chest wall rise - Respiratory Respiratory exam: Present: normal lung sounds bilaterally. Absent: respiratory distress, wheezes - Cardiovascular Cardiovascular exam: Present: regular rate, normal rhythm, normal heart sounds - Abdominal Exam Abdominal exam: Present: soft, Non-Tender, normal bowel sounds. Absent: tenderness, distention, guarding, rebound, rigidity - Extremities Exam Extremities exam: Present: normal inspection, full ROM, normal capillary refill. Absent: tenderness, pedal edema - Expanded Upper Extremity Exam Shoulder exam: Present: normal inspection, full ROM Arm exam: Present: normal inspection, full ROM Elbow exam: Present: normal inspection, full ROM Forearm/Wrist exam: Present: normal inspection, full ROM Hand exam: Present: normal inspection, full ROM Vascular exam: Normal: capillary refill, radial pulse - Expanded Lower Extremity Exam Hip/Pelvis exam: Present: normal inspection, full ROM Upper leg exam: Present: normal inspection, full ROM Knee exam: Present: normal inspection, full ROM Lower leg exam: Present: normal inspection, full ROM Ankle exam: Present: normal inspection, full ROM Foot/toe exam: Present: normal inspection, full ROM Neurovascular/Tendon exam: Absent: motor deficit, sensory deficit, tendon deficit - Back Exam Back exam: Present: normal inspection, full ROM. Absent: tenderness - Neurological Exam Neurological exam: Present: alert, oriented X3 - Expanded Neurological Exam Patient oriented to: Present: person, place, time Coma Scale Eye Opening: Spontaneous Coma Scale Motor Response: Obeys Commands Coma Scale Verbal Response: Oriented Coma Scale Total: 15 - Psychiatric Psychiatric exam: Present: normal affect, normal mood - Skin Skin exam: Present: warm, dry, intact, normal color Course Course Narrative: Patient placed exam room. H&P obtained. Nurse's notes reviewed. Patient was given Toradol with improvement. Patient CT scan showing a right proximal ureter stone with hydronephrosis with a fluid collection. The fluid collection could represent an abscess, diverticulum or mass A CT scan with contrast demonstrated a stone again with hydronephrosis and it appears the fluid collection may be from disruption of the renal parenchymal tissue secondary to the hydronephrosis. Patient was given morphine and feeling much better. However, patient's pain did return while waiting on the second CT results. It was noted that her blood pressure did drop some however that was after she did receive the morphine. A fluid bolus was administered. The patient was given 1 mg of Dilaudid. Rocephin was given - Consultations Consultation #1: I spoke with Dr. Tran. He agrees with admission. Advising the CT findings, Her vital signs, Her urine results. The antibiotic Rocephin, fluids, as well as her pain medications are received. Time: 02:55 Vital Signs Temperature 98.0 F 07/11/19 21:58 Pulse Rate 78 07/11/19 21:58 Respiratory Rate 16 07/11/19 21:58 Blood Pressure 122/83 07/11/19 21:58 O2 Sat by Pulse Oximetry 99 07/11/19 21:58 Temperature 98.0 F 07/12/19 05:11 Pulse Rate 55 07/12/19 05:45 Respiratory Rate 16 07/12/19 05:45 Blood Pressure 91/58 07/12/19 05:45 O2 Sat by Pulse Oximetry 98 07/12/19 05:45 Oxygen Delivery Oxygen Delivery Room Air Abdominal Pain - Differential Diagnosis Differential Diagnosis: Likely: calculus of kidney, diverticulitis, small bowel obstruction - Medical Records Medical records reviewed: Yes I reviewed the patient's medical records. - Lab Data Lab results reviewed: Yes I reviewed the patient's lab results. Result diagrams: 07/11/19 23:33 07/11/19 23:33 Lab Results 07/11/19 07/11/19 07/11/19 Range/Units 22:30 22:30 23:33 WBC 13.7 H (4.3-11.1) K/mcL RBC 3.69 L (3.82-4.97) M/mcL Hgb 11.1 L (11.5-15.4) g/dL Hct 34.1 L (35.3-44.9) % MCV 92.4 (83.0-100.0) fL MCH 30.1 (28.0-33.3) pg MCHC 32.6 (31.6-35.5) g/dL RDW 14.0 (11.5-14.5) % Plt Count 238 (140-400) K/mcL MPV 9.1 L (9.4-12.4) fL Immature Gran % 0.8 (0-4) % Seg Neutrophils % 85.7 % Lymphocytes % 7.0 % Monocytes % 5.8 % Eosinophils % 0.4 % Basophils % 0.3 % Neutrophils # 11.8 H (1.6-8.9) K/mcL Lymphocytes # 1.0 (0.6-4.6) K/mcL Monocytes # 0.8 (0.0-1.3) K/mcL Eosinophils # 0.1 (0.0-0.6) K/mcL Basophils # 0.0 (0.0-0.2) K/mcL Sodium (136-145) mEq/L Potassium (3.5-5.1) mEq/L Chloride (98-107) mEq/L Carbon Dioxide (23-29) mEq/L BUN (6-20) mg/dL Creatinine (0.60-1.20) mg/dL Est GFR ( Amer) (> 60) Est GFR (Non-Af Amer) (> 60) BUN/Creatinine Ratio (6-26) Glucose (70-105) mg/dL Calculated Osmolality (280-300) Calcium (8.6-10.3) mg/dL Total Bilirubin (0.3-1.0) mg/dL Direct Bilirubin (0.0-0.2) mg/dL Indirect Bilirubin (0.0-1.2) mg/dL AST (13-39) Units/L ALT (7-52) Units/L Alkaline Phosphatase (34-104) Units/L Serum Total Protein (6.4-8.9) g/dL Albumin (3.5-5.7) g/dL Globulin (2.4-3.5) g/dL Albumin/Globulin Ratio (1.1-2.2) Amylase (29-103) Units/L Lipase (11-82) Units/L Urine Color Yellow (Yellow) Urine Clarity Cloudy A (Clear) Urine pH 5.5 (5.0-8.0) pH Units Ur Specific [place] 1.029 H (1.010-1.025) Urine Protein Trace (Neg-Trace) mg/dL Urine Glucose (UA) Normal (Normal) mg/dL Urine Ketones Negative (Negative) mg/dL Urine Blood Large H (Negative) Urine Nitrite Negative (Negative) Urine Bilirubin Small H (Negative) Urine Urobilinogen Normal (Normal) mg/dL Ur Leukocyte Esterase Negative (Negative) Urine Microscopic RBC TNTC H (0-3) per hpf Urine Microscopic WBC 5-15 H (0-3) per hpf Ur Squamous Epith Cells Many H (None-Few) per lpf Urine Bacteria None Seen (None-Few) per hpf Hyaline Casts None Seen (None-Few) per lpf Ur Culture Indicated? YES A (NO) Urine Test Negative (Negative) 07/11/19 Range/Units 23:33 WBC (4.3-11.1) K/mcL RBC (3.82-4.97) M/mcL Hgb (11.5-15.4) g/dL Hct (35.3-44.9) % MCV (83.0-100.0) fL MCH (28.0-33.3) pg MCHC (31.6-35.5) g/dL RDW (11.5-14.5) % Plt Count (140-400) K/mcL MPV (9.4-12.4) fL Immature Gran % (0-4) % Seg Neutrophils % % Lymphocytes % % Monocytes % % Eosinophils % % Basophils % % Neutrophils # (1.6-8.9) K/mcL Lymphocytes # (0.6-4.6) K/mcL Monocytes # (0.0-1.3) K/mcL Eosinophils # (0.0-0.6) K/mcL Basophils # (0.0-0.2) K/mcL Sodium 140 (136-145) mEq/L Potassium 3.2 L (3.5-5.1) mEq/L Chloride 109 H (98-107) mEq/L Carbon Dioxide 21 L (23-29) mEq/L BUN 18 (6-20) mg/dL Creatinine 0.90 (0.60-1.20) mg/dL Est GFR ( Amer) > 60 (> 60) Est GFR (Non-Af Amer) > 60 (> 60) BUN/Creatinine Ratio 20 (6-26) Glucose 103 (70-105) mg/dL Calculated Osmolality 292 (280-300) Calcium 8.6 (8.6-10.3) mg/dL Total Bilirubin 0.2 L (0.3-1.0) mg/dL Direct Bilirubin 0.0 (0.0-0.2) mg/dL Indirect Bilirubin 0.2 (0.0-1.2) mg/dL AST 17 (13-39) Units/L ALT 11 (7-52) Units/L Alkaline Phosphatase 67 (34-104) Units/L Serum Total Protein 6.3 L (6.4-8.9) g/dL Albumin 3.9 (3.5-5.7) g/dL Globulin 2.4 (2.4-3.5) g/dL Albumin/Globulin Ratio 1.6 (1.1-2.2) Amylase 35 (29-103) Units/L Lipase 38 (11-82) Units/L Urine Color (Yellow) Urine Clarity (Clear) Urine pH (5.0-8.0) pH Units Ur Specific [place] (1.010-1.025) Urine Protein (Neg-Trace) mg/dL Urine Glucose (UA) (Normal) mg/dL Urine Ketones (Negative) mg/dL Urine Blood (Negative) Urine Nitrite (Negative) Urine Bilirubin (Negative) Urine Urobilinogen (Normal) mg/dL Ur Leukocyte Esterase (Negative) Urine Microscopic RBC (0-3) per hpf Urine Microscopic WBC (0-3) per hpf Ur Squamous Epith Cells (None-Few) per lpf Urine Bacteria (None-Few) per hpf Hyaline Casts (None-Few) per lpf Ur Culture Indicated? (NO) Urine Test (Negative) - Radiology Data Radiology results reviewed: Yes I reviewed the patient's radiology results. Abdomen/Pelvis CT 07/12/19 23:46 IMPRESSION: Right perinephric stranding and fluid as well as right hydronephrosis and right hydroureter with 2 adjacent 4 mm distal right ureteral stone located several cm from the right ureterovesical junction. Right nephrolithiasis. Fluid attenuation well-circumscribed 3.8 x 3.0 cm structure anterior to the inferior vena cava at the level of the right kidney this finding could represent a large duodenal diverticulum or mesenteric cyst. A postcontrast CT would be helpful to further evaluate. D/ / Geovanna Jack Cha, MD / Geovanna Jack Cha, MD Interpreting Provider: Geovanna Jack Cha, MD
[2019-07-11 23:09] LABS: Bilirubin,Urine Small (Negative); Blood,Urine Large (Negative); Clarity,Urine Cloudy (Clear); Color,Urine Yellow (Yellow); Glucose,Urine (UA) Normal (Normal); Ketones,Urine Negative (Negative); Leukocyte Esterase,Urine Negative (Negative); Nitrite,Urine Negative (Negative); PH,Urine 5.5 pH Units (5.0-8.0); Protein,Urine Trace mg/dL (Neg-Trace); Specific Gravity,Urine 1.029 (1.010-1.025); Urobilinogen,Urine Normal (Normal)
[2019-07-11 23:12] LABS: Bacteria,Urine None Seen per hpf (None-Few); Hyaline Casts,Urine None Seen per lpf (None-Few); RBC,Urine TNTC per hpf (0-3); Squamous Epithelial Cell,Urine Many per lpf (None-Few)
[2019-07-12 00:13] LABS: Alanine Aminotransferase 11 Units/L (7-52); Albumin 3.9 g/dL (3.5-5.7); Albumin/Globulin Ratio 1.6 (1.1-2.2); Alkaline Phosphatase 67 Units/L (34-104); Amylase 35 Units/L (29-103); Aspartate Amino Transferase 17 Units/L (13-39); BUN/Creatinine Ratio 20 (6-26); Bilirubin,Indirect 0.2 mg/dL (0.0-1.2); Bilirubin,Total 0.2 mg/dL (0.3-1.0); Blood Urea Nitrogen 18 mg/dL (6-20); Calcium 8.6 mg/dL (8.6-10.3); Carbon Dioxide 21 mEq/L (23-29); Chloride 109 mEq/L (98-107); Globulin 2.4 g/dL (2.4-3.5); Glucose 103 mg/dL (70-105); Lipase 38 Units/L (11-82); Osmolality,Calculated 292 (280-300); Potassium 3.2 mEq/L (3.5-5.1); Sodium 140 mEq/L (136-145); Total Protein 6.3 g/dL (6.4-8.9); eGFR For African Americans > 60 (> 60); eGFR For Non-African Americans > 60 (> 60)
[2019-07-12 00:19] LABS: Basophils % 0.3 %; Eosinophils # 0.1 K/mcL (0.0-0.6); Eosinophils % 0.4 %; Hematocrit 34.1 % (35.3-44.9); Hemoglobin 11.1 g/dL (11.5-15.4); Immature Granulocytes % 0.8 % (0-4); Mean Corpuscular HGB Conc 32.6 g/dL (31.6-35.5); Mean Corpuscular Hemoglobin 30.1 pg (28.0-33.3); Mean Corpuscular Volume 92.4 fL (83.0-100.0); Mean Platelet Volume 9.1 fL (9.4-12.4); Monocytes # 0.8 K/mcL (0.0-1.3); Monocytes % 5.8 %; Neutrophils # 11.8 K/mcL (1.6-8.9); Platelet Count 238 K/mcL (140-400); Red Blood Count 3.69 M/mcL (3.82-4.97); Segmented Neutrophils % 85.7 %; White Blood Count 13.7 K/mcL (4.3-11.1)
[2019-07-12] MEDS ORDERED: Morphine Sulfate 2 MG/ML SYRINGE IVP ONE (00:21)
[2019-07-12] MEDS ORDERED: Isovue-370 500 ML BOTTLE IVP ONE (01:44)
[2019-07-12] MEDS ORDERED: cefTRIAXone 2,000 MG in 0.9 % Sodium Chloride Mini Bag 100 ML IVPB ONE (01:44)
[2019-07-12] MEDS ORDERED: *HR* HYDROmorphone (PF) 1 MG/ML SYRINGE IVP ONE (02:51)
[2019-07-12] MEDS ORDERED: 0.9 % Sodium Chloride 1,000 ML IVC ONE (02:57)
[2019-07-12] MEDS ORDERED: Hyoscyamine SL 0.125 MG TAB.SUBL SL PRN ×3 (03:04→16:47)
[2019-07-12] MEDS ORDERED: *HR* Belladonna Alkaloids/Opium 30 MG RECTAL SUPPOSITORY RC PRN (03:04)
[2019-07-12] MEDS ORDERED: *HR* FentaNYL (PF) 100 MCG/2 ML VIAL IVP PRN ×2 (03:04→16:47)
[2019-07-12] MEDS ORDERED: Naloxone 0.4 MG/ML INJ IVP PRN ×2 (03:04→16:47)
[2019-07-12] MEDS ORDERED: Ondansetron 4 MG/2 ML VIAL IVP PRN ×2 (03:04→16:47)
[2019-07-12] MEDS: 0.9 % Sodium Chloride 1,000 ML IVC SCH ×2 (05:00→14:53)
--- NOTE | 2019-07-12 08:36 | Urology History & Physical ---
<Cely Higgins N - Last Filed: 07/12/19 08:32> Date of Encounter: 07/12/19 Time of Encounter: 08:00 Assessment and Plan (1) Hydronephrosis concurrent with and due to calculi of kidney and ureter Status: Acute Patient is a 39-year-old female who presents with a history of multiple distal right ureteral calculi, nephrolithiasis and hydronephrosis. Vital signs are st able and afebrile, and renal function is reassuring. We discussed surgical risks and benefits, and patient verbalized understanding. Patient signed consent, and she is prepared undergo a right ureteroscopic stone extraction with holmium laser lithotripsy, basket retrieval and right ureteral stent placement. Patient will remain nothing by mouth, and she is anticipating surgery later today with Dr. Tran. History of Present Illness Chief complaint: right flank pain HPI: Ms. Ayers is a 39 year old female who presents with right hydronephrosis and right distal ureteral calculi. Patient reports a one day history of severe right flank pain radiating to the right groin, nausea and chills. She presented to the emergency department where she underwent a CT of the abdomen and pelvis. Patient reports a prior history of nephrolithiasis, and she passed a stone by medical expulsion approximately 4 months ago. Patient has no known family history of renal stones. On my evaluation, she is sitting upright in bed in no apparent distress, but she admits to continued pain rating it at 7/10. Patient denies any fever, gross hematuria, or dysuria. Past Med Surg Social Fam HX - Past Medical History Medical history: GERD, migraine, thyroid disease Additional medical history: Palpitations, IBS, claudette LE pain. Anxiety. Syncope. Family hx of DVT Psychiatric history: anxiety, depression - Past Surgical History Surgical History: appendectomy, , cholecystectomy, thyroidectomy, other Additional surgical history: Bilateral tubal ligation. Right ovary removed 2006 - Social History Smoking Status: Current every day smoker Smokeless Tobacco Status: No Alcohol use: rarely Drug use: none - Family History Father Living Status: Still Living Hx Family Cardiac Disorders: Yes ([place]) Hx Family Respiratory Disorders: No Hx Family Cancer: No Hx Family GI Disorders: No Hx Family Endocrine Disorder: No Hx Family Neuromuscular Disorders: No Hx Family Neurologic Disorders: No Hx Family HEENT Disorders: No Hx Family Autoimmune Disorders: No Mother Living Status: Still Living Hx Family Cardiac Disorders: No Hx Family Respiratory Disorders: No Hx Family Cancer: No Hx Family GI Disorders: No Hx Family Endocrine Disorder: Yes (DM) Hx Family Neuromuscular Disorders: No Hx Family Neurologic Disorders: No Hx Family HEENT Disorders: No Hx Family Autoimmune Disorders: No Medications and Allergies Hyoscyamine SL [Levsin Sl] 0.125 mg SL Q4HR PRN #42 tab.subl 02/24/16 [Rx] Gabapentin [Neurontin] 300 mg PO HS 04/04/19 [History] Levothyroxine [Synthroid] 25 mcg PO Q48H 04/04/19 [History] Omeprazole [PriLOSEC] 40 mg PO DAILY 04/04/19 [History] Topiramate 50 mg PO BID 04/04/19 [History] FLUoxetine HCl [Prozac] 40 mg PO DAILY 04/30/19 [History] Trazodone HCl 100 mg PO HS 04/30/19 [History] HYDROcodone/Acet 5/325 mg [[place] 5-325 mg] 1 tab PO Q6H PRN 5 Days #20 tab 07/12/19 [Rx] Hyoscyamine SL [Levsin Sl] 0.125 mg SL Q4H PRN 5 Days #30 tab.subl 07/12/19 [Rx] LORazepam [Ativan] 1 tab PO BID PRN 07/12/19 [History] Sulfamethoxazole/Trimeth DS [Bactrim DS] 1 each PO BID #10 tablet 07/12/19 [Rx] Allergy/AdvReac Type Severity Reaction Status Date / Time meperidine [From Demerol] Allergy Hives Verified 05/24/19 21:15 prochlorperazine Allergy Hives Verified 05/24/19 21:15 [From Compazine] promethazine [From Phenergan] Allergy Hives Verified 05/24/19 21:15 terbutaline [From Brethine] Allergy Hives Verified 05/24/19 21:15 Review of Systems - Constitutional chills, no fatigue, no fever(s) - EENT Nose, mouth and throat: no dizziness, no headache(s) - Cardiovascular no chest pain, no diaphoresis, no dyspnea - Respiratory no cough, no dyspnea - Gastrointestinal abdominal pain, nausea, no vomiting - Genitourinary Genitourinary: flank pain, no difficulty urinating, no dysuria, no hematuria, no urinary frequency, no urinary hesitancy, no urinary incontinence, no urinary urgency - Musculoskeletal back pain, no muscle weakness - Integumentary no erythema, no rash - Neurological no confusion, no sensory deficit - Psychiatric no anxiety, no confusion - Hematologic/Lymphatic no easy bleeding, no easy bruising - Allergic/Immunologic no throat swelling, no wheezing Exam Initial Vital Signs Temp Pulse Resp BP Pulse Ox 98.0 F 78 16 122/83 99 07/11/19 21:58 07/11/19 21:58 07/11/19 21:58 07/11/19 21:58 07/11/19 21:58 - General physical appearance Present: no distress, moderate pain - Eyes Present: PERRL, normal ocular movement - ENT Present: normal nares, no hearing loss, no congestion - Neck Present: no masses, trachea midline, no lymphadenopathy - Cardiovascular Cardiovascular exam IM: RRR - Abdomen Abdomen: Present: soft, non tender. Absent: distended - Genitourinary Present: other (Right CVAT) - Integumentary Present: no rash, no abnormal pigmentation - Neurologic Present: normal coordination - Musculoskeletal Present: other (Normal posture) Urology Results - Labs 07/11/19 23:33 07/11/19 23:33 Abnormal lab results WBC 13.7 K/mcL (4.3-11.1) H 07/11/19 23:33 RBC 3.69 M/mcL (3.82-4.97) L 07/11/19 23:33 Hgb 11.1 g/dL (11.5-15.4) L 07/11/19 23:33 Hct 34.1 % (35.3-44.9) L 07/11/19 23:33 MPV 9.1 fL (9.4-12.4) L 07/11/19 23:33 Neutrophils # 11.8 K/mcL (1.6-8.9) H 07/11/19 23:33 Potassium 3.2 mEq/L (3.5-5.1) L 07/11/19 23:33 Chloride 109 mEq/L (98-107) H 07/11/19 23:33 Carbon Dioxide 21 mEq/L (23-29) L 07/11/19 23:33 POC Glucose 100 mg/dL (70-99) H 07/12/19 05:09 Total Bilirubin 0.2 mg/dL (0.3-1.0) L 07/11/19 23:33 Serum Total Protein 6.3 g/dL (6.4-8.9) L 07/11/19 23:33 Urine Clarity Cloudy (Clear) A 07/11/19 22:30 Ur Specific [place] 1.029 (1.010-1.025) H 07/11/19 22:30 Urine Blood Large (Negative) H 07/11/19 22:30 Urine Bilirubin Small (Negative) H 07/11/19 22:30 Urine Microscopic RBC TNTC per hpf (0-3) H 07/11/19 22:30 Urine Microscopic WBC 5-15 per hpf (0-3) H 07/11/19 22:30 Ur Squamous Epith Cells Many per lpf (None-Few) H 07/11/19 22:30 Ur Culture Indicated? YES (NO) A 07/11/19 22:30 Diabetes panel 07/11/19 Range/Units 23:33 Sodium 140 (136-145) mEq/L Potassium 3.2 L (3.5-5.1) mEq/L Chloride 109 H (98-107) mEq/L Carbon Dioxide 21 L (23-29) mEq/L BUN 18 (6-20) mg/dL Creatinine 0.90 (0.60-1.20) mg/dL Glucose 103 (70-105) mg/dL Calcium 8.6 (8.6-10.3) mg/dL AST 17 (13-39) Units/L ALT 11 (7-52) Units/L Alkaline Phosphatase 67 (34-104) Units/L Albumin 3.9 (3.5-5.7) g/dL Calcium panel 07/11/19 Range/Units 23:33 Calcium 8.6 (8.6-10.3) mg/dL Albumin 3.9 (3.5-5.7) g/dL Pituitary panel 07/11/19 Range/Units 23:33 Sodium 140 (136-145) mEq/L Potassium 3.2 L (3.5-5.1) mEq/L Chloride 109 H (98-107) mEq/L Carbon Dioxide 21 L (23-29) mEq/L BUN 18 (6-20) mg/dL Creatinine 0.90 (0.60-1.20) mg/dL Glucose 103 (70-105) mg/dL Calcium 8.6 (8.6-10.3) mg/dL Adrenal panel 07/11/19 Range/Units 23:33 Sodium 140 (136-145) mEq/L Potassium 3.2 L (3.5-5.1) mEq/L Chloride 109 H (98-107) mEq/L Carbon Dioxide 21 L (23-29) mEq/L BUN 18 (6-20) mg/dL Creatinine 0.90 (0.60-1.20) mg/dL Glucose 103 (70-105) mg/dL Calcium 8.6 (8.6-10.3) mg/dL Total Bilirubin 0.2 L (0.3-1.0) mg/dL AST 17 (13-39) Units/L ALT 11 (7-52) Units/L Alkaline Phosphatase 67 (34-104) Units/L Albumin 3.9 (3.5-5.7) g/dL All other labs normal. - Imaging CT scan - abdomen: report reviewed, image reviewed CT scan - pelvis: report reviewed, image reviewed <Yaakov Tran - Last Filed: 07/12/19 18:05> Date of Encounter: 07/12/19 Assessment and Plan (1) Hydronephrosis concurrent with and due to calculi of kidney and ureter Status: Resolved Patient seen and examined by myself. Patient was seen in conjunction with physician bankruptcy legal assistant. Agree with her assessment and plan. Patient was taken to the operating room later in the day for ureteroscopic stone extraction. Please see operative report for details regarding that procedure. History of Present Illness HPI: Ms. Ayers is a 39 year old female Exam Initial Vital Signs Temp Pulse Resp BP Pulse Ox 98.0 F 78 16 122/83 99 07/11/19 21:58 07/11/19 21:58 07/11/19 21:58 07/11/19 21:58 07/11/19 21:58 Urology Results - Labs 07/11/19 23:33 07/11/19 23:33 Abnormal lab results WBC 13.7 K/mcL (4.3-11.1) H 07/11/19 23:33 RBC 3.69 M/mcL (3.82-4.97) L 07/11/19 23:33 Hgb 11.1 g/dL (11.5-15.4) L 07/11/19 23:33 Hct 34.1 % (35.3-44.9) L 07/11/19 23:33 MPV 9.1 fL (9.4-12.4) L 07/11/19 23:33 Neutrophils # 11.8 K/mcL (1.6-8.9) H 07/11/19 23:33 Potassium 3.2 mEq/L (3.5-5.1) L 07/11/19 23:33 Chloride 109 mEq/L (98-107) H 07/11/19 23:33 Carbon Dioxide 21 mEq/L (23-29) L 07/11/19 23:33 POC Glucose 100 mg/dL (70-99) H 07/12/19 05:09 Total Bilirubin 0.2 mg/dL (0.3-1.0) L 07/11/19 23:33 Serum Total Protein 6.3 g/dL (6.4-8.9) L 07/11/19 23:33 Urine Clarity Cloudy (Clear) A 07/11/19 22:30 Ur Specific [place] 1.029 (1.010-1.025) H 07/11/19 22:30 Urine Blood Large (Negative) H 07/11/19 22:30 Urine Bilirubin Small (Negative) H 07/11/19 22:30 Urine Microscopic RBC TNTC per hpf (0-3) H 07/11/19 22:30 Urine Microscopic WBC 5-15 per hpf (0-3) H 07/11/19 22:30 Ur Squamous Epith Cells Many per lpf (None-Few) H 07/11/19 22:30 Ur Culture Indicated? YES (NO) A 07/11/19 22:30 Diabetes panel 07/11/19 Range/Units 23:33 Sodium 140 (136-145) mEq/L Potassium 3.2 L (3.5-5.1) mEq/L Chloride 109 H (98-107) mEq/L Carbon Dioxide 21 L (23-29) mEq/L BUN 18 (6-20) mg/dL Creatinine 0.90 (0.60-1.20) mg/dL Glucose 103 (70-105) mg/dL Calcium 8.6 (8.6-10.3) mg/dL AST 17 (13-39) Units/L ALT 11 (7-52) Units/L Alkaline Phosphatase 67 (34-104) Units/L Albumin 3.9 (3.5-5.7) g/dL Calcium panel 07/11/19 Range/Units 23:33 Calcium 8.6 (8.6-10.3) mg/dL Albumin 3.9 (3.5-5.7) g/dL Pituitary panel 07/11/19 Range/Units 23:33 Sodium 140 (136-145) mEq/L Potassium 3.2 L (3.5-5.1) mEq/L Chloride 109 H (98-107) mEq/L Carbon Dioxide 21 L (23-29) mEq/L BUN 18 (6-20) mg/dL Creatinine 0.90 (0.60-1.20) mg/dL Glucose 103 (70-105) mg/dL Calcium 8.6 (8.6-10.3) mg/dL Adrenal panel 07/11/19 Range/Units 23:33 Sodium 140 (136-145) mEq/L Potassium 3.2 L (3.5-5.1) mEq/L Chloride 109 H (98-107) mEq/L Carbon Dioxide 21 L (23-29) mEq/L BUN 18 (6-20) mg/dL Creatinine 0.90 (0.60-1.20) mg/dL Glucose 103 (70-105) mg/dL Calcium 8.6 (8.6-10.3) mg/dL Total Bilirubin 0.2 L (0.3-1.0) mg/dL AST 17 (13-39) Units/L ALT 11 (7-52) Units/L Alkaline Phosphatase 67 (34-104) Units/L Albumin 3.9 (3.5-5.7) g/dL All other labs normal.
[2019-07-12] MEDS: Acetaminophen IV 1,000 MG/100 ML INFUS..BTL IVPB SCH ×2 (09:14→14:54)
[2019-07-12] MEDS ORDERED: Dexamethasone 4 MG/ML VIAL ONE (12:01)
[2019-07-12] MEDS ORDERED: *HR* FentaNYL (PF) 100 MCG/2 ML VIAL ONE (12:01)
[2019-07-12] MEDS ORDERED: *HR* Midazolam HCl 2 MG/2 ML VIAL ONE (12:01)
[2019-07-12] MEDS ORDERED: Ondansetron 4 MG/2 ML VIAL ONE (12:01)
[2019-07-12] MEDS ORDERED: *HR* Propofol 200 MG/20 ML VIAL IVP ONE (12:01)
[2019-07-12] MEDS ORDERED: Lidocaine -MPF 2% 2 ML VIAL ONE (12:01)
[2019-07-12] MEDS ORDERED: Albuterol 2.5 MG/3 ML NEBULIZER IH ONE (12:09)
[2019-07-12] MEDS ORDERED: Scopolamine Patch 1.5 MG PATCH.TD72 TD ONE (12:09)
[2019-07-12] MEDS ORDERED: Ipratropium/Albuterol Neb 3 ML ONE (12:13)
--- NOTE | 2019-07-12 12:14 | Anesthesia Evaluation PreOp ---
Date of Encounter: 07/12/19 Time of Encounter: 12:10 - Past History Planned Operation: right ureteroscope, laser lithotripsy Cardiac History: Denies any Significant Hx Pulmonary History: Smoker [employer] History: Denies Any Significant HX Other Medical History: Denies Any Significant HX Test: Negative Alcohol Use: rarely Drug use: none Medications and Allergies Hyoscyamine SL [Levsin Sl] 0.125 mg SL Q4HR PRN #42 tab.subl 02/24/16 [Rx] Gabapentin [Neurontin] 300 mg PO HS 04/04/19 [History] Levothyroxine [Synthroid] 25 mcg PO Q48H 04/04/19 [History] Omeprazole [PriLOSEC] 40 mg PO DAILY 04/04/19 [History] Topiramate 50 mg PO BID 04/04/19 [History] FLUoxetine HCl [Prozac] 40 mg PO DAILY 04/30/19 [History] Trazodone HCl 100 mg PO HS 04/30/19 [History] Allergy/AdvReac Type Severity Reaction Status Date / Time meperidine [From Demerol] Allergy Hives Verified 05/24/19 21:15 prochlorperazine Allergy Hives Verified 05/24/19 21:15 [From Compazine] promethazine [From Phenergan] Allergy Hives Verified 05/24/19 21:15 terbutaline [From Brethine] Allergy Hives Verified 05/24/19 21:15 - Meds/Allergy Pre-op Review Medications Reviewed: Yes Allergies Reviewed: Yes Beta Blockers on Current Med List: No Anesthesia Results - Labs 07/11/19 23:33 07/11/19 23:33 Anesthesia Exam Selected Entries 07/12/19 11:32 Temperature 98.3 F Pulse Rate 60 Respiratory Rate 15 Blood Pressure 88/53 O2 Sat by Pulse Oximetry 96 Weight: 65 kg BMI 22 NPO (# of Hours): over 8 hours - HEENT Mallampati: II Teeth: Normal Oral Opening: Greater than 3 - Cardiac Rhythm: Regular Murmur: None - Pulmonary Breath Sounds: bilateral Clear Respiratory Effort: Symmetrical Anesthesia Assess/Plan ASA Score: 2 Level of consciousness: Cooperative Anesthetic Plan: General Monitoring Plan: Standard Monitors Recovery Plan: PACU (Discussed GA, risks. Agreed to proceed.)
[2019-07-12] MEDS ORDERED: Isovue-300 50 ML VIAL ONE (12:16)
[2019-07-12] MEDS ORDERED: EPHEDrine 50 MG/ML VIAL ONE (12:37)
[2019-07-12] MEDS ORDERED: Ketorolac 30 MG/ML VIAL ONE (12:50)
[2019-07-12] MEDS ORDERED: Morphine Sulfate 2 MG/ML SYRINGE IVP PRN (13:11)
[2019-07-12] MEDS ORDERED: Ringers Solution, Lactated 1,000 ML ONE (13:14)
[2019-07-12] MEDS ORDERED: *HR* Belladonna Alkaloids/Opium 60 MG RECTAL SUPPOSITORY RC PRN (14:32)
--- NOTE | 2019-07-12 16:01 | Discharge Summary ---
Orders not resulted at time of discharge: Pending orders 07/11/19 22:30 Culture,Urine [RM] Stat 07/12/19 03:42 Culture,Blood [BC] Stat 07/12/19 13:07 Surgical Pathology [PTH] Routine Date of Encounter: 07/12/19 Time of Encounter: 16:01 - Discharge Diagnosis (1) Hydronephrosis concurrent with and due to calculi of kidney and ureter Priority: Primary Status: Resolved - Hospital Course Hospital course: Ms. Ayers is a 39 year old female admitted with an obstructing right distal ureteral stone. Status post on extraction. Having some expected stent discomfort. Patient voiced that she is ready for discharge. We will discharge with pain medication, Bactrim, hyoscyamine. We will follow cultures. Patient is afebrile with stable vital signs following the procedure. - Time Spent with Patient Total time spent providing and/or coordinating discharge services: Labs on day of discharge: Labs from last 24 hours 07/12/19 07/11/19 07/11/19 05:09 23:33 23:33 WBC 13.7 H RBC 3.69 L Hgb 11.1 L Hct 34.1 L MCV 92.4 MCH 30.1 MCHC 32.6 RDW 14.0 Plt Count 238 MPV 9.1 L Immature Gran % 0.8 Seg Neutrophils % 85.7 Lymphocytes % 7.0 Monocytes % 5.8 Eosinophils % 0.4 Basophils % 0.3 Neutrophils # 11.8 H Lymphocytes # 1.0 Monocytes # 0.8 Eosinophils # 0.1 Basophils # 0.0 Sodium 140 Potassium 3.2 L Chloride 109 H Carbon Dioxide 21 L BUN 18 Creatinine 0.90 Est GFR ( Amer) > 60 Est GFR (Non-Af Amer) > 60 BUN/Creatinine Ratio 20 Glucose 103 POC Glucose 100 H Calculated Osmolality 292 Calcium 8.6 Total Bilirubin 0.2 L Direct Bilirubin 0.0 Indirect Bilirubin 0.2 AST 17 ALT 11 Alkaline Phosphatase 67 Serum Total Protein 6.3 L Albumin 3.9 Globulin 2.4 Albumin/Globulin Ratio 1.6 Amylase 35 Lipase 38 Urine Color Urine Clarity Urine pH Ur Specific [place] Urine Protein Urine Glucose (UA) Urine Ketones Urine Blood Urine Nitrite Urine Bilirubin Urine Urobilinogen Ur Leukocyte Esterase Urine Microscopic RBC Urine Microscopic WBC Ur Squamous Epith Cells Urine Bacteria Hyaline Casts Ur Culture Indicated? Urine Test 07/11/19 07/11/19 22:30 22:30 WBC RBC Hgb Hct MCV MCH MCHC RDW Plt Count MPV Immature Gran % Seg Neutrophils % Lymphocytes % Monocytes % Eosinophils % Basophils % Neutrophils # Lymphocytes # Monocytes # Eosinophils # Basophils # Sodium Potassium Chloride Carbon Dioxide BUN Creatinine Est GFR ( Amer) Est GFR (Non-Af Amer) BUN/Creatinine Ratio Glucose POC Glucose Calculated Osmolality Calcium Total Bilirubin Direct Bilirubin Indirect Bilirubin AST ALT Alkaline Phosphatase Serum Total Protein Albumin Globulin Albumin/Globulin Ratio Amylase Lipase Urine Color Yellow Urine Clarity Cloudy A Urine pH 5.5 Ur Specific [place] 1.029 H Urine Protein Trace Urine Glucose (UA) Normal Urine Ketones Negative Urine Blood Large H Urine Nitrite Negative Urine Bilirubin Small H Urine Urobilinogen Normal Ur Leukocyte Esterase Negative Urine Microscopic RBC TNTC H Urine Microscopic WBC 5-15 H Ur Squamous Epith Cells Many H Urine Bacteria None Seen Hyaline Casts None Seen Ur Culture Indicated? YES A Urine Test Negative Preliminary micro results at discharge 07/12/19 03:42 Blood Culture - Preliminary Peripheral Venipuncture Culture is incubating and being continuously monitored for growth. Final report to follow. 07/12/19 03:47 Blood Culture - Preliminary Peripheral Venipuncture Culture is incubating and being continuously monitored for growth. Final report to follow. 07/11/19 22:30 Urine Culture - Preliminary Urine,Clean Catch Culture is incubating. - Impressions ITS Impressions Abdomen/Pelvis CT 07/12/19 01:44 IMPRESSION: Right hydroureteronephrosis secondary to two distal right ureteral calculi, one measuring 2 mm and the other measuring 3 mm at the right UVJ. 3 cm left ovarian cyst requiring no imaging follow-up. Fibroid uterus. Fluid attenuation anterior to the IVC may represent fluid related to hydronephrosis/obstructive uropathy versus a nonenhancing mesenteric cyst. D/ / 07/12/2019 07:11:28 Ottoniel Blanchard / destin Interpreting Provider: Ottoniel Blanchard Retrograde Pyelogram 07/12/19 12:32 IMPRESSION: Intraprocedural fluoroscopic spot images as above. See separate procedure report for more information. D/ / 07/12/2019 14:26:01 Randi Crump MD / huy Interpreting Provider: Randi Crump MD Abdomen/Pelvis CT 07/12/19 23:46 IMPRESSION: Right perinephric stranding and fluid as well as right hydronephrosis and right hydroureter with 2 adjacent 4 mm distal right ureteral stone located several cm from the right ureterovesical junction. Right nephrolithiasis. Fluid attenuation well-circumscribed 3.8 x 3.0 cm structure anterior to the inferior vena cava at the level of the right kidney this finding could represent a large duodenal diverticulum or mesenteric cyst. A postcontrast CT would be helpful to further evaluate. D/ / Geovanna Jack Cha, MD / Geovanna Jack Cha, MD Interpreting Provider: Geovanna Jack Cha, MD - Discharge Medications Prescriptions: New Sulfamethoxazole/Trimeth DS [Bactrim DS] 1 each PO BID #10 tablet Hyoscyamine SL [Levsin Sl] 0.125 mg SL Q4H PRN 5 Days #30 tab.subl PRN Reason: bladder spasms HYDROcodone/Acet 5/325 mg [[place] 5-325 mg] 1 tab PO Q6H PRN 5 Days #20 tab PRN Reason: Pain Continued Hyoscyamine SL [Levsin Sl] 0.125 mg SL Q4HR PRN #42 tab.subl PRN Reason: GI tract spasm Levothyroxine [Synthroid] 25 mcg PO Q48H Gabapentin [Neurontin] 300 mg PO HS Omeprazole [PriLOSEC] 40 mg PO DAILY Topiramate 50 mg PO BID FLUoxetine HCl [Prozac] 40 mg PO DAILY Trazodone HCl 100 mg PO HS LORazepam [Ativan] 1 tab PO BID PRN PRN Reason: Anxiety Home Medications: Hyoscyamine SL [Levsin Sl] 0.125 mg SL Q4HR PRN #42 tab.subl 02/24/16 [Rx] Gabapentin [Neurontin] 300 mg PO HS 04/04/19 [History] Levothyroxine [Synthroid] 25 mcg PO Q48H 04/04/19 [History] Omeprazole [PriLOSEC] 40 mg PO DAILY 04/04/19 [History] Topiramate 50 mg PO BID 04/04/19 [History] FLUoxetine HCl [Prozac] 40 mg PO DAILY 04/30/19 [History] Trazodone HCl 100 mg PO HS 04/30/19 [History] HYDROcodone/Acet 5/325 mg [[place] 5-325 mg] 1 tab PO Q6H PRN 5 Days #20 tab 07/12/19 [Rx] Hyoscyamine SL [Levsin Sl] 0.125 mg SL Q4H PRN 5 Days #30 tab.subl 07/12/19 [Rx] LORazepam [Ativan] 1 tab PO BID PRN 07/12/19 [History] Sulfamethoxazole/Trimeth DS [Bactrim DS] 1 each PO BID #10 tablet 07/12/19 [Rx] Allergies/Adverse Reactions: Allergy/AdvReac Type Severity Reaction Status Date / Time meperidine [From Demerol] Allergy Hives Verified 05/24/19 21:15 prochlorperazine Allergy Hives Verified 05/24/19 21:15 [From Compazine] promethazine [From Phenergan] Allergy Hives Verified 05/24/19 21:15 terbutaline [From Brethine] Allergy Hives Verified 05/24/19 21:15 Date of admission: 07/12/19 03:06 Primary care physician: Leia Tomas Discharging clinician: Yaakov Tran Anticipated date of discharge: 07/12/19 Exam Initial Vital Signs Temp Pulse Resp BP Pulse Ox 98.0 F 78 16 122/83 99 07/11/19 21:58 07/11/19 21:58 07/11/19 21:58 07/11/19 21:58 07/11/19 21:58 - General physical appearance Present: no distress (minimal pain) - Patient Status Disposition: Home, Self-Care Condition: Good Functional capacity at discharge: independent ambulation Overall status at discharge: patient is progressing back to baseline - Discharge Instructions Follow Up With: Leia Tomas [Primary Care Provider] - Yaakov Tran MD [Partnered Physician] - (My office will call to schedule cystoscopy and stent removal) Additional Instructions: Expect stent discomfort including urgency, frequency, burning on urination, white blood in the urine, flank pain during urination Minimize activity. Increased activity will cause increased stent discomfort. use stool softeners to prevent constipation Okay to take [id number] AZO for dysuria Call or go to the emergency room if fever over 101 degrees or severe pain. My office will contact patient to schedule stent removal in the office. Okay to take ibuprofen Okay to drive when off pain medication - Diet and Activity Activity: other Diet: advance to your usual diet
[2019-07-12] MEDS ORDERED: Levothyroxine 25 MCG TABLET PO SCH (16:47)
[2019-07-12] MEDS ORDERED: 0.9 % Sodium Chloride 1,000 ML IVC SCH (16:47)
[2019-07-12] MEDS ORDERED: *HR* LORazepam 0.5 MG TABLET PO PRN (16:47)
[2019-07-12 16:58] VITALS: BP 106/69
--- NOTE | 2019-07-12 18:08 | Operative Note ---
Date of procedure: 07/12/19 Pre-op diagnosis: 2 right distal ureteral stones Post-op diagnosis: same Procedure: Right ureteroscopic stone extraction using holmium laser lithotripsy Right retrograde pyelogram and ureteral stent placement Anesthesia: GETA Surgeon: Yaakov Tran Was there an assistant women's rowing coach present: No Estimated blood loss (cc): 0 Specimen: Stone fragments Condition: stable Disposition: PACU Procedure in Detail: PROCEDURE IN DETAIL: Patient was taken back to the operating room, positioned supine on the operating table. Anesthesia was applied without complication. They were moved into dorsal lithotomy. Careful attention was maintained to cushion all pressure points for patient's safety. They were prepped and draped in sterile fashion. Time-out was performed with the proper patient and procedure. A 21-Libyan rigid cystoscope was inserted into the bladder without difficulty. Systematic examination of bladder revealed no abnormalities. The ureteral orifice was cannulated using a 5-Libyan ureteral Catheter and a retrograde pyelogram was performed using Isovue. A filling defect was identified which corresponded to the stones. At that point, a zip wire was placed through the 5-Libyan and confirmed in the renal pelvis with fluoroscopy. A semi-rigid ureteroscope was carefully inserted into the bladder and guided into the ureteral oriface. At that point, the stone was encountered and I felt that it required fragmentation for safe extraction. The stone was quite impacted. A 200 micron holmium laser fiber on a setting of 8 and 800 was used to fragment the stone into multiple pieces. The fragments were individually basketed out of the ureter with a 1.9 tipless basket. All stone in the ureter was removed. A 4.8 x 26 ureteral stent was placed over the zip wire under fluoroscopy without complication. The bladder was drained along with the stone fragments. They were collected and sent for stone analysis. No string was left attached to the stent because the stone was quite impacted and I felt the ureter required stent placement for longer than 72 hours
[2019-07-12] MEDS ORDERED: Gabapentin 300 MG CAPSULE PO SCH (21:00)
[2019-07-12] MEDS ORDERED: NON-FORMULARY MEDICATION 1 EACH EACH (Trazodone Hcl 100 MG) PO SCH (21:00)
[2019-07-12] MEDS ORDERED: TOPIRAMATE 50 MG PO SCH (21:00)
[2019-07-13] MEDS ORDERED: FLUoxetine 20 MG CAPSULE PO SCH (09:00)
[2019-07-13] MEDS ORDERED: NON-FORMULARY MEDICATION 1 EACH EACH (Omeprazole [Prilosec] 40 MG) PO SCH (09:00)
[2019-07-16 20:10] LABS: Calculi Mass 23 mg
== END 2019-07-12 17:17 | disposition home or self-care (01) ==
LOC: EMEROOARM 21:52 → 3ANU 21:52
PROVIDERS: ADMIT Urology; ATTEND Urology

== ENCOUNTER 2019-09-12 17:23 | Observation (INO) ==
[2019-09-12] MEDS ORDERED: 0.9 % Sodium Chloride 1,000 ML IVC ONE (17:52)
[2019-09-12] MEDS ORDERED: Calcium Gluconate 1gm/50mL 1 GM/50 ML BAG IVPB ONE (17:53)
[2019-09-12] MEDS ORDERED: Lidocaine -MPF 2% 5 ML VIAL INFILT ONE (19:49)
[2019-09-12] MEDS ORDERED: Lidocaine -MPF 2% 5 ML VIAL ONE (19:52)
[2019-09-12] MEDS ORDERED: Dexamethasone 4 MG/ML VIAL IVP ONE (21:25)
[2019-09-12] MEDS ORDERED: Ringers Solution, Lactated 1,000 ML IVC SCH (22:15)
[2019-09-13] MEDS: Gabapentin 300 MG CAPSULE PO SCH ×4 (00:15→20:06)
[2019-09-13] MEDS: traZODone 50 MG TABLET PO SCH ×2 (00:15→20:07)
[2019-09-13] MEDS: Topiramate 25 MG TABLET PO SCH ×3 (00:15→20:07)
[2019-09-13] MEDS: BuPROPion SR (12 HR) 150 MG TABLET PO SCH ×3 (00:16→20:06)
[2019-09-13 01:21] LABS: Basophils % 0.5 %; Eosinophils # 0.1 K/mcL (0.0-0.6); Eosinophils % 1.6 %; Hematocrit 31.7 % (35.3-44.9); Immature Granulocytes % 0.5 % (0-4); Lymphocytes # 1.8 K/mcL (0.6-4.6); Lymphocytes % 30.2 %; Mean Corpuscular HGB Conc 31.9 g/dL (31.6-35.5); Mean Corpuscular Hemoglobin 30.3 pg (28.0-33.3); Mean Corpuscular Volume 95.2 fL (83.0-100.0); Mean Platelet Volume 8.9 fL (9.4-12.4); Monocytes # 0.5 K/mcL (0.0-1.3); Monocytes % 8.1 %; Neutrophils # 3.4 K/mcL (1.6-8.9); Platelet Count 262 K/mcL (140-400); Red Blood Count 3.33 M/mcL (3.82-4.97); Red Cell Distribution Width 15.1 % (11.5-14.5); Segmented Neutrophils % 59.1 %; White Blood Count 5.8 K/mcL (4.3-11.1)
[2019-09-13 01:25] LABS: Hemoglobin 10.1 g/dL (11.5-15.4)
[2019-09-13 01:42] LABS: Alanine Aminotransferase 13 Units/L (7-52); Albumin 3.3 g/dL (3.5-5.7); Albumin/Globulin Ratio 1.5 (1.1-2.2); Alkaline Phosphatase 60 Units/L (34-104); Aspartate Amino Transferase 17 Units/L (13-39); BUN/Creatinine Ratio 18 (6-26); Bilirubin,Indirect 0.3 mg/dL (0.0-1.0); Bilirubin,Total 0.3 mg/dL (0.3-1.0); Blood Urea Nitrogen 14 mg/dL (6-20); Calcium 8.5 mg/dL (8.6-10.3); Carbon Dioxide 21 mEq/L (23-29); Chloride 112 mEq/L (98-107); Globulin 2.2 g/dL (2.4-3.5); Glucose 136 mg/dL (70-105); Magnesium 1.8 mg/dL (1.6-2.6); Osmolality,Calculated 293 (280-300); Phosphorous 3.3 mg/dL (2.7-4.5); Potassium 3.6 mEq/L (3.5-5.1); Sodium 140 mEq/L (136-145); Total Protein 5.5 g/dL (6.4-8.9); eGFR For African Americans > 60 (> 60); eGFR For Non-African Americans > 60 (> 60)
[2019-09-13 06:14] LABS: Amphetamine Screen,Urine Negative ng/mL (Cutoff=1000); Barbiturate Screen,Urine Negative ng/mL (Cutoff=200); Bilirubin,Urine Negative (Negative); Blood,Urine Negative (Negative); Clarity,Urine Clear (Clear); Color,Urine Yellow (Yellow); Glucose,Urine (UA) Normal (Normal); Ketones,Urine Negative (Negative); Leukocyte Esterase,Urine Moderate (Negative); Nitrite,Urine Negative (Negative); Protein,Urine Negative (Neg-Trace); Specific Gravity,Urine 1.014 (1.010-1.025); Urobilinogen,Urine Normal (Normal)
[2019-09-13 06:15] LABS: Cannabinoid Screen,Urine Negative ng/mL (Cutoff = 50); Cocaine Screen,Urine Negative ng/mL (Cutoff= 300); Opiate Screen,Urine Negative ng/mL (Cutoff=300); Phencyclidine Screen,Urine Negative ng/mL (Cutoff=25)
[2019-09-13 06:16] LABS: Bacteria,Urine None Seen per hpf (None-Few); Hyaline Casts,Urine None Seen per lpf (None-Few); Squamous Epithelial Cell,Urine Many per lpf (None-Few); WBC,Urine 30-50 per hpf (0-3)
[2019-09-13] MEDS: Acetaminophen 325 MG TABLET PO PRN ×2 (06:18→14:51)
[2019-09-13] MEDS: Ondansetron 4 MG/2 ML VIAL IVP PRN ×3 (06:18→21:59)
[2019-09-13 08:30] LABS: Benzodiazepines Screen,Urine Negative ng/mL (Cutoff=200)
[2019-09-13] MEDS: FLUoxetine 20 MG CAPSULE PO SCH (08:32)
[2019-09-13] MEDS: *HR* LORazepam 0.5 MG TABLET PO PRN ×2 (08:32→18:08)
[2019-09-13] MEDS ORDERED: traMADol 50 MG TABLET PO ONE ×2 (08:41→22:18)
[2019-09-13] MEDS: Famotidine 20 MG TABLET PO SCH ×2 (08:59→20:06)
[2019-09-13] MEDS ORDERED: MethylPREDNISolone 40 MG/ML VIAL IVP ONE (10:56)
[2019-09-13] MEDS ORDERED: Ketorolac 30 MG/ML VIAL IVP ONE (10:56)
[2019-09-13] MEDS ORDERED: Isovue-370 500 ML BOTTLE IVP ONE (10:57)
[2019-09-13 11:14] LABS: Thyroid Stimulating Hormone 1.026 mcIU/mL (0.340-5.600)
[2019-09-13 15:44] LABS: Hematocrit 34.6 % (35.3-44.9)
[2019-09-13 15:46] LABS: Hemoglobin 11.7 g/dL (11.5-15.4)
[2019-09-13] MEDS ORDERED: Methyl Salicylate/Menthol 57 APPL/57 GM TUBE TP PRN (16:39)
[2019-09-13] MEDS: Ketorolac 30 MG/ML VIAL IVP PRN (20:10)
[2019-09-14] MEDS: Ketorolac 30 MG/ML VIAL IVP PRN ×2 (08:16→16:48)
[2019-09-14] MEDS: BuPROPion SR (12 HR) 150 MG TABLET PO SCH (08:16)
[2019-09-14] MEDS: Gabapentin 300 MG CAPSULE PO SCH ×2 (08:16→14:16)
[2019-09-14] MEDS: FLUoxetine 20 MG CAPSULE PO SCH (08:16)
[2019-09-14] MEDS: Famotidine 20 MG TABLET PO SCH (08:16)
[2019-09-14] MEDS: Topiramate 25 MG TABLET PO SCH (08:16)
[2019-09-14] MEDS: *HR* LORazepam 0.5 MG TABLET PO PRN (09:54)
[2019-09-14] MEDS: Ondansetron 4 MG/2 ML VIAL IVP PRN (14:19)
[2019-09-14 15:51] VITALS: BP 114/77
== END 2019-09-14 17:56 | disposition short-term general hospital (02) ==
LOC: EMEROOARM 17:23 → 3BNU 17:23
PROVIDERS: ADMIT Internal Medicine; ATTEND Internal Medicine

== ENCOUNTER 2020-01-24 18:54 | Observation (INO) ==
[2020-01-24] MEDS ORDERED: 0.9 % Sodium Chloride 1,000 ML ONE (19:08)
[2020-01-24] MEDS ORDERED: 0.9 % Sodium Chloride 1,000 ML IVC ONE ×4 (19:10→22:13)
[2020-01-24 19:30] LABS: Hematocrit 39.8 % (35.3-44.9); Hemoglobin 12.7 g/dL (11.5-15.4); Mean Corpuscular HGB Conc 31.9 g/dL (31.6-35.5); Mean Corpuscular Hemoglobin 29.6 pg (28.0-33.3); Mean Corpuscular Volume 92.8 fL (83.0-100.0); Mean Platelet Volume 9.2 fL (9.4-12.4); Platelet Count 235 K/mcL (140-400); Red Blood Count 4.29 M/mcL (3.82-4.97); Red Cell Distribution Width 14.2 % (11.5-14.5); White Blood Count 5.4 K/mcL (4.3-11.1)
[2020-01-24] MEDS ORDERED: Sodium Bicarbonate 50 MEQ/50 ML VIAL IVP ONE (19:34)
[2020-01-24 19:48] LABS: Acetaminophen < 10 mcg/mL (10-20); Alanine Aminotransferase 16 Units/L (7-52); Albumin 4.3 g/dL (3.5-5.7); Albumin/Globulin Ratio 1.4 (1.1-2.2); Alkaline Phosphatase 110 Units/L (34-104); Aspartate Amino Transferase 13 Units/L (13-39); BUN/Creatinine Ratio 13 (6-26); Bilirubin,Total 0.2 mg/dL (0.3-1.0); Blood Urea Nitrogen 10 mg/dL (6-20); Calcium 8.6 mg/dL (8.6-10.3); Carbon Dioxide 21 mEq/L (23-29); Chloride 108 mEq/L (98-107); Ethanol 174 mg/dL (Less than 10); Globulin 3.1 g/dL (2.4-3.5); Glucose 75 mg/dL (70-105); Osmolality,Calculated 278 (280-300); Potassium 2.9 mEq/L (3.5-5.1); Salicylate < 2.5 mg/dL (15.0-30.0); Sodium 135 mEq/L (136-145); Total Protein 7.4 g/dL (6.4-8.9); eGFR For African Americans > 60 (> 60); eGFR For Non-African Americans > 60 (> 60)
[2020-01-24] MEDS ORDERED: Potassium Chloride 40 MEQ, Lidocaine 1% 2 ML in 0.9 % Sodium Chloride 500 ML IVPB ONE (20:29)
[2020-01-24 21:15] LABS: Thyroid Stimulating Hormone 1.341 mcIU/mL (0.340-5.600)
[2020-01-24 21:16] LABS: Triiodothyronine (T3) Free 3.26 pg/mL (2.50-3.90)
[2020-01-24 21:27] LABS: Amphetamine Screen,Urine Negative ng/mL (Cutoff=1000); Barbiturate Screen,Urine Negative ng/mL (Cutoff=200); Benzodiazepines Screen,Urine Negative ng/mL (Cutoff=200); Cannabinoid Screen,Urine Negative ng/mL (Cutoff = 50); Cocaine Screen,Urine Negative ng/mL (Cutoff= 300); Opiate Screen,Urine Negative ng/mL (Cutoff=300); Phencyclidine Screen,Urine Negative ng/mL (Cutoff=25)
[2020-01-24] MEDS: Sodium Bicarbonate 75 MEQ in 0.45 % Sodium Chloride 1,000 ML IVC SCH (22:58)
[2020-01-25] MEDS ORDERED: *HR* LORazepam 2 MG/ML VIAL IVP PRN ×6 (00:43→10:05)
[2020-01-25] MEDS ORDERED: Potassium Chloride Elixir 20 MEQ/15 ML UDC PO ONE (00:55)
[2020-01-25] MEDS ORDERED: Ringers Solution, Lactated 1,000 ML IVC SCH (01:00)
[2020-01-25] MEDS: Calcium Gluconate 1gm/50mL 1 GM/50 ML BAG IVPB SCH ×4 (01:24→05:59)
[2020-01-25 01:28] LABS: VBG HCO3 23 mEq/L (21-27); VBG PCO2 49 mmHg (41-51); VBG PH 7.27 pH Units (7.32-7.42); VBG PO2 76 mmHg (25-50)
[2020-01-25 01:52] LABS: BUN/Creatinine Ratio 11 (6-26); Blood Urea Nitrogen 7 mg/dL (6-20); Calcium 6.9 mg/dL (8.6-10.3); Carbon Dioxide 22 mEq/L (23-29); Chloride 112 mEq/L (98-107); Glucose 91 mg/dL (70-105); Osmolality,Calculated 282 (280-300); Phosphorous 2.8 mg/dL (2.7-4.5); Sodium 137 mEq/L (136-145); eGFR For African Americans > 60 (> 60); eGFR For Non-African Americans > 60 (> 60)
[2020-01-25] MEDS ORDERED: Naloxone 0.4 MG/ML INJ IVP PRN ×2 (03:57→10:05)
[2020-01-25] MEDS ORDERED: *HR* Heparin 5,000 UNIT/ML VIAL SQ SCH (06:00)
[2020-01-25] MEDS: Sodium Bicarbonate 75 MEQ in 0.45 % Sodium Chloride 1,000 ML IVC SCH (09:29)
[2020-01-25] MEDS ORDERED: Potassium Chloride 40 MEQ, Lidocaine 1% 2 ML in 0.9 % Sodium Chloride 500 ML IVPB ONE (10:05)
[2020-01-25] MEDS ORDERED: Sodium Bicarbonate 75 MEQ in 0.45 % Sodium Chloride 1,000 ML IVC SCH (10:05)
[2020-01-25 10:47] LABS: Bilirubin,Urine Negative (Negative); Blood,Urine Negative (Negative); Clarity,Urine Cloudy (Clear); Color,Urine Yellow (Yellow); Glucose,Urine (UA) Normal (Normal); Ketones,Urine Negative (Negative); Leukocyte Esterase,Urine Negative (Negative); Nitrite,Urine Negative (Negative); PH,Urine 6.5 pH Units (5.0-8.0); Protein,Urine Negative (Neg-Trace); Specific Gravity,Urine 1.013 (1.010-1.025); Urobilinogen,Urine Normal (Normal)
[2020-01-25 10:50] LABS: Bacteria,Urine Few per hpf (None-Few); Hyaline Casts,Urine None Seen per lpf (None-Few); Squamous Epithelial Cell,Urine Many per lpf (None-Few); WBC,Urine 0-3 per hpf (0-3)
[2020-01-25] MEDS: *HR* Heparin 5,000 UNIT/ML VIAL SQ SCH (17:29)
[2020-01-25] MEDS: Thiamine (B-1) 100 MG, Folic Acid 1 MG, MVI, adult with vitamin K 10 ML in 0.9 % Sodi... IVPB SCH (17:31)
[2020-01-25] MEDS ORDERED: Thiamine (B-1) 100 MG, Folic Acid 1 MG, MVI, adult with vitamin K 10 ML in 0.9 % Sodi... IVPB SCH (18:00)
[2020-01-25] MEDS ORDERED: Topiramate 25 MG TABLET PO SCH (21:00)
[2020-01-25] MEDS: Topiramate 25 MG TABLET PO SCH (22:01)
[2020-01-26] MEDS: *HR* Heparin 5,000 UNIT/ML VIAL SQ SCH ×2 (06:06→17:34)
[2020-01-26] MEDS: Topiramate 25 MG TABLET PO SCH ×2 (08:09→20:00)
[2020-01-26] MEDS: Aspirin Enteric Coated 81 MG Tablet PO SCH (08:09)
[2020-01-26] MEDS: FLUoxetine 20 MG CAPSULE PO SCH (08:09)
[2020-01-26] MEDS ORDERED: Calcium Gluconate 1gm/50mL 1 GM/50 ML BAG IVPB ONE (08:23)
[2020-01-26] MEDS ORDERED: FLUoxetine 20 MG CAPSULE PO SCH (09:00)
[2020-01-26] MEDS ORDERED: Aspirin Enteric Coated 81 MG Tablet PO SCH (09:00)
[2020-01-26] MEDS ORDERED: Ketorolac 15 MG/ML VIAL IVP ONE (10:02)
[2020-01-26] MEDS ORDERED: Ondansetron 4 MG/2 ML VIAL IVP ONE (10:05)
[2020-01-26] MEDS ORDERED: Ondansetron 4 MG/2 ML VIAL IVP PRN (16:00)
[2020-01-26 16:03] LABS: Adenovirus Not Detected (Not Detect); Coronavirus 229E Not Detected (Not Detect); Coronavirus HKU1 Not Detected (Not Detect); Coronavirus NL63 Not Detected (Not Detect); Coronavirus OC43 Not Detected (Not Detect); Human Metapneumovirus Not Detected (Not Detect); Human Rhinovirus/Enterovirus Not Detected (Not Detect); Influenza A Subtype 2009 H1 Not Detected (Not Detect)
[2020-01-26 16:04] LABS: Bordetella Pertussis Not Detected (Not Detect); Chlamydophila pneumoniae Not Detected (Not Detect); Influenza B DETECTED (Not Detect); Mycoplasma pneumoniae Not Detected (Not Detect); Parainfluenza Virus 1 Not Detected (Not Detect); Parainfluenza Virus 2 Not Detected (Not Detect); Parainfluenza Virus 3 Not Detected (Not Detect); Parainfluenza Virus 4 Not Detected (Not Detect); Respiratory Syncytial Virus Not Detected (Not Detect)
[2020-01-26] MEDS: Thiamine (B-1) 100 MG, Folic Acid 1 MG, MVI, adult with vitamin K 10 ML in 0.9 % Sodi... IVPB SCH (17:42)
[2020-01-26] MEDS: Ketorolac 15 MG/ML VIAL IVP PRN (21:32)
[2020-01-27 05:54] LABS: Basophils % 0.7 %; Eosinophils # 0.2 K/mcL (0.0-0.6); Eosinophils % 2.8 %; Hematocrit 36.4 % (35.3-44.9); Hemoglobin 11.5 g/dL (11.5-15.4); Immature Granulocytes % 0.3 % (0-4); Lymphocytes # 1.8 K/mcL (0.6-4.6); Lymphocytes % 30.2 %; Mean Corpuscular HGB Conc 31.6 g/dL (31.6-35.5); Mean Corpuscular Hemoglobin 29.9 pg (28.0-33.3); Mean Corpuscular Volume 94.5 fL (83.0-100.0); Mean Platelet Volume 9.6 fL (9.4-12.4); Monocytes # 0.4 K/mcL (0.0-1.3); Monocytes % 6.5 %; Neutrophils # 3.6 K/mcL (1.6-8.9); Platelet Count 220 K/mcL (140-400); Red Blood Count 3.85 M/mcL (3.82-4.97); Red Cell Distribution Width 14.1 % (11.5-14.5); Segmented Neutrophils % 59.5 %
[2020-01-27] MEDS: *HR* Heparin 5,000 UNIT/ML VIAL SQ SCH (06:03)
[2020-01-27 06:13] LABS: BUN/Creatinine Ratio 16 (6-26); Blood Urea Nitrogen 13 mg/dL (6-20); Calcium 8.6 mg/dL (8.6-10.3); Carbon Dioxide 22 mEq/L (23-29); Chloride 109 mEq/L (98-107); Glucose 77 mg/dL (70-105); Osmolality,Calculated 287 (280-300); Potassium 3.4 mEq/L (3.5-5.1); Sodium 139 mEq/L (136-145); eGFR For African Americans > 60 (> 60); eGFR For Non-African Americans > 60 (> 60)
[2020-01-27] MEDS ORDERED: Potassium Chloride Elixir 20 MEQ/15 ML UDC PO ONE (07:53)
[2020-01-27] MEDS: Topiramate 25 MG TABLET PO SCH (08:46)
[2020-01-27] MEDS: FLUoxetine 20 MG CAPSULE PO SCH (08:46)
[2020-01-27] MEDS: Aspirin Enteric Coated 81 MG Tablet PO SCH (08:47)
[2020-01-27 10:22] VITALS: BP 99/68
[2020-01-27] MEDS: Ketorolac 15 MG/ML VIAL IVP PRN ×2 (10:29→16:34)
== END 2020-01-27 16:50 | disposition other institution (70) ==
LOC: ICNU 18:54 → EMEROOARM 18:54 → SUATTDRO 23:38 → ICNU 01-25 00:15 → 3BNU 01-25 11:18
PROVIDERS: ADMIT Family Medicine; ATTEND Internal Medicine

== ENCOUNTER 2020-01-27 16:54 | Inpatient (IN) ==
[2020-01-27] MEDS ORDERED: *HR* LORazepam 1 MG TABLET PO PRN (17:06)
[2020-01-27] MEDS ORDERED: *HR* LORazepam 2 MG/ML VIAL IM PRN (17:06)
[2020-01-27] MEDS ORDERED: Haloperidol Lactate 5 MG/ML VIAL IM PRN (17:06)
[2020-01-27] MEDS ORDERED: Mag Hydrox/Al Hydrox/Simeth 30 ML UDC PO PRN (17:06)
[2020-01-27] MEDS ORDERED: MOM Conc 10 ML UD.LIQ PO PRN (17:06)
[2020-01-27] MEDS ORDERED: haloperidoL 5 MG TABLET PO PRN (17:06)
[2020-01-27] MEDS ORDERED: Ondansetron ODT 4 MG TAB.RAPDIS SL PRN (17:10)
[2020-01-27] MEDS: Ibuprofen 800 MG TABLET PO PRN (18:52)
[2020-01-27] MEDS: traZODone 50 MG TABLET PO PRN (21:05)
[2020-01-27] MEDS: hydrOXYzine pamoate 25 MG CAPSULE PO PRN (21:05)
[2020-01-27] MEDS: Topiramate 25 MG TABLET PO SCH (21:05)
[2020-01-28] MEDS: Ibuprofen 800 MG TABLET PO PRN ×3 (04:03→19:50)
[2020-01-28] MEDS: hydrOXYzine pamoate 25 MG CAPSULE PO PRN ×2 (06:49→20:51)
[2020-01-28] MEDS: Topiramate 25 MG TABLET PO SCH ×2 (08:26→20:51)
[2020-01-28] MEDS: Aspirin Enteric Coated 81 MG Tablet PO SCH (08:28)
[2020-01-28] MEDS: FLUoxetine 20 MG CAPSULE PO SCH (08:28)
[2020-01-28] MEDS: Acetaminophen 325 MG TABLET PO PRN ×2 (11:13→17:44)
[2020-01-28] MEDS: traZODone 50 MG TABLET PO PRN (20:51)
[2020-01-29] MEDS: Acetaminophen 325 MG TABLET PO PRN (01:55)
[2020-01-29] MEDS: Ibuprofen 800 MG TABLET PO PRN (08:03)
[2020-01-29] MEDS: FLUoxetine 20 MG CAPSULE PO SCH (08:38)
[2020-01-29] MEDS: Aspirin Enteric Coated 81 MG Tablet PO SCH (08:39)
[2020-01-29] MEDS: Topiramate 25 MG TABLET PO SCH (08:39)
[2020-01-29 09:35] VITALS: BP 100/67
== END 2020-01-29 10:30 | disposition home or self-care (01) | DRG 751 ==
LOC: 1ANU 16:54
PROVIDERS: ADMIT Psychiatry & Neurology Psychiatry; ATTEND Psychiatry & Neurology Psychiatry

== ENCOUNTER 2020-04-06 11:15 | Observation (INO) ==
[2020-04-06] MEDS ORDERED: *HR* Heparin 5,000 UNIT/ML VIAL SQ ONE (11:41)
[2020-04-06] MEDS ORDERED: CeFAZolin Syr 2,000MG/20 ML 2,000 MG/20 ML SYRINGE IVPB ONE (11:41)
[2020-04-06] MEDS ORDERED: Ringers Solution, Lactated 1,000 ML IVC SCH ×2 (11:45→12:30)
[2020-04-06] MEDS ORDERED: Ketorolac 30 MG/ML VIAL IVP ONE (12:29)
[2020-04-06] MEDS ORDERED: Ondansetron 4 MG/2 ML VIAL IVP ONE (12:29)
[2020-04-06] MEDS ORDERED: *HR* OxyCODONE Immed Rel 5 MG TABLET PO PRN (12:29)
[2020-04-06] MEDS ORDERED: Scopolamine Patch 1.5 MG PATCH.TD72 TD ONE (12:30)
[2020-04-06] MEDS ORDERED: Lidocaine/EPI 1:100k 1% 20 ML VIAL ONE (13:29)
[2020-04-06] MEDS ORDERED: Lidocaine/EPI 1:200k 1% PF 10 ML VIAL ONE (13:34)
[2020-04-06] MEDS ORDERED: *HR* Propofol 200 MG/20 ML VIAL IVP ONE ×2 (14:08→14:44)
[2020-04-06] MEDS ORDERED: *HR* Remifentanil 2 MG VIAL IVP ONE (14:44)
[2020-04-06] MEDS ORDERED: *HR* Succinylcholine 200 MG/10 ML VIAL IVP ONE (14:44)
[2020-04-06] MEDS ORDERED: *HR* FentaNYL (PF) 100 MCG/2 ML VIAL ONE ×3 (14:44→17:22)
[2020-04-06] MEDS ORDERED: *HR* Midazolam HCl 2 MG/2 ML VIAL ONE (14:44)
[2020-04-06] MEDS ORDERED: Dexamethasone 4 MG/ML VIAL ONE ×2 (14:44→17:16)
[2020-04-06] MEDS ORDERED: Lidocaine -MPF 2% 2 ML VIAL ONE (14:44)
[2020-04-06] MEDS ORDERED: Lidocaine HCL 4 ML Topical Solution (Laryng-O-Jet Kit Sterile Pak) TP ONE (14:44)
[2020-04-06] MEDS ORDERED: *HR* PHENYLEPHRINE 1,000 MCG/10 ML SYRINGE IVP ONE ×2 (14:44)
[2020-04-06] MEDS ORDERED: Ondansetron 4 MG/2 ML VIAL ONE (14:44)
[2020-04-06] MEDS ORDERED: *HR* HYDROmorphone 2 MG/ML SYRINGE IVP PRN (17:35)
[2020-04-06] MEDS ORDERED: *HR* HYDROmorphone (PF) 1 MG/ML SYRINGE ONE (17:52)
[2020-04-06] MEDS ORDERED: *HR* HYDROMORPHONE 2 MG/ML VIAL ONE (17:52)
[2020-04-06] MEDS ORDERED: 0.9 % Sodium Chloride 1,000 ML IVC SCH (18:47)
[2020-04-06] MEDS ORDERED: Naloxone 0.4 MG/ML INJ IVP PRN (18:47)
[2020-04-06] MEDS: *HR* OxyCODONE Immed Rel 5 MG TABLET PO PRN (19:04)
[2020-04-06 19:36] LABS: Albumin 4.1 g/dL (3.5-5.7); Magnesium 1.7 mg/dL (1.6-2.6)
[2020-04-06] MEDS ORDERED: *HR* HYDROmorphone (PF) 1 MG/ML SYRINGE IVP ONE (20:25)
[2020-04-06] MEDS ORDERED: Ibuprofen 400 MG TABLET PO ONE (20:26)
[2020-04-06] MEDS: Topiramate 25 MG TABLET PO SCH (20:31)
[2020-04-06] MEDS: Mirtazapine 15 MG TABLET PO SCH (20:32)
[2020-04-06] MEDS: traZODone 50 MG TABLET PO SCH (20:32)
[2020-04-07] MEDS: *HR* OxyCODONE Immed Rel 5 MG TABLET PO PRN ×2 (01:08→07:33)
[2020-04-07] MEDS: Ondansetron 4 MG/2 ML VIAL IVP PRN (01:08)
[2020-04-07] MEDS: hydrOXYzine pamoate 25 MG CAPSULE PO PRN ×3 (01:09→20:09)
[2020-04-07] MEDS: Acetaminophen 325 MG TABLET PO PRN ×2 (03:09→14:38)
[2020-04-07 04:11] LABS: Albumin 3.8 g/dL (3.5-5.7); Calcium 7.4 mg/dL (8.6-10.3); Magnesium 2.6 mg/dL (1.6-2.6)
[2020-04-07] MEDS ORDERED: Calcium Gluconate 1gm/50mL 1 GM/50 ML BAG IVPB ONE (07:25)
[2020-04-07] MEDS: FLUoxetine 20 MG CAPSULE PO SCH (07:33)
[2020-04-07] MEDS: Topiramate 25 MG TABLET PO SCH ×2 (07:33→20:11)
[2020-04-07] MEDS ORDERED: *HR* HYDROmorphone (PF) 1 MG/ML SYRINGE IVP ONE (07:49)
[2020-04-07] MEDS ORDERED: *HR* OxyCODONE Immed Rel 5 MG TABLET PO PRN (07:53)
[2020-04-07] MEDS ORDERED: calcitrioL 0.25 MCG CAPSULE PO SCH (09:00)
[2020-04-07] MEDS: Ibuprofen 400 MG TABLET PO PRN (10:42)
[2020-04-07] MEDS ORDERED: Calcium Gluconate 1gm/50mL 1 GM/50 ML BAG IVPB PRN (13:58)
[2020-04-07] MEDS ORDERED: *HR* HYDROcodone/Acet 10/325 mg TABLET PO PRN (14:36)
[2020-04-07] MEDS ORDERED: *HR* HYDROmorphone (PF) 1 MG/ML SYRINGE IVP PRN (15:23)
[2020-04-07] MEDS: *HR* HYDROcodone/Acet 10/325 mg TABLET PO PRN ×2 (15:49→20:11)
[2020-04-07 17:25] LABS: Calcium 7.5 mg/dL (8.6-10.3)
[2020-04-07] MEDS ORDERED: Ketorolac 30 MG/ML VIAL IVP PRN (17:29)
[2020-04-07] MEDS ORDERED: Acetaminophen 325 MG TABLET PO PRN (18:23)
[2020-04-07] MEDS: Mirtazapine 15 MG TABLET PO SCH (20:10)
[2020-04-07] MEDS: calcitrioL 0.25 MCG CAPSULE PO SCH (20:10)
[2020-04-07] MEDS: traZODone 50 MG TABLET PO SCH (20:10)
[2020-04-07] MEDS: 0.9 % Sodium Chloride 1,000 ML IVC SCH (20:14)
[2020-04-07] MEDS: Calcium Gluconate 1gm/50mL 1 GM/50 ML BAG IVPB SCH (23:54)
[2020-04-08] MEDS: *HR* HYDROcodone/Acet 10/325 mg TABLET PO PRN ×3 (00:24→08:32)
[2020-04-08] MEDS: Calcium Gluconate 1gm/50mL 1 GM/50 ML BAG IVPB SCH (00:50)
[2020-04-08] MEDS: Ibuprofen 400 MG TABLET PO PRN ×3 (03:41→18:12)
[2020-04-08] MEDS: hydrOXYzine pamoate 25 MG CAPSULE PO PRN ×2 (03:42→12:59)
[2020-04-08] MEDS: 0.9 % Sodium Chloride 1,000 ML IVC SCH ×2 (03:59→10:42)
[2020-04-08 05:09] LABS: Basophils % 0.5 %; Eosinophils % 0.5 %; Hematocrit 30.4 % (35.3-44.9); Immature Granulocytes % 0.4 % (0-4); Lymphocytes # 2.5 K/mcL (0.6-4.6); Lymphocytes % 30.6 %; Mean Corpuscular HGB Conc 31.9 g/dL (31.6-35.5); Mean Corpuscular Hemoglobin 30.4 pg (28.0-33.3); Mean Corpuscular Volume 95.3 fL (83.0-100.0); Mean Platelet Volume 9.3 fL (9.4-12.4); Monocytes # 0.4 K/mcL (0.0-1.3); Monocytes % 5.4 %; Neutrophils # 5.1 K/mcL (1.6-8.9); Platelet Count 199 K/mcL (140-400); Red Blood Count 3.19 M/mcL (3.82-4.97); Red Cell Distribution Width 16.9 % (11.5-14.5); Segmented Neutrophils % 62.6 %
[2020-04-08 05:10] LABS: Hemoglobin 9.7 g/dL (11.5-15.4); White Blood Count 8.2 K/mcL (4.3-11.1)
[2020-04-08 05:28] LABS: Alanine Aminotransferase 105 Units/L (7-52); Albumin 3.5 g/dL (3.5-5.7); Albumin/Globulin Ratio 1.6 (1.1-2.2); Alkaline Phosphatase 74 Units/L (34-104); Aspartate Amino Transferase 55 Units/L (13-39); BUN/Creatinine Ratio 23 (6-26); Bilirubin,Total 0.2 mg/dL (0.3-1.0); Blood Urea Nitrogen 17 mg/dL (6-20); Carbon Dioxide 26 mEq/L (23-29); Chloride 108 mEq/L (98-107); Globulin 2.2 g/dL (2.4-3.5); Glucose 91 mg/dL (70-105); Osmolality,Calculated 291 (280-300); Potassium 3.6 mEq/L (3.5-5.1); Sodium 140 mEq/L (136-145); Total Protein 5.7 g/dL (6.4-8.9); eGFR For African Americans > 60 (> 60); eGFR For Non-African Americans > 60 (> 60)
[2020-04-08] MEDS ORDERED: 0.9 % Sodium Chloride 500 ML IVC ONE (07:40)
[2020-04-08] MEDS: FLUoxetine 20 MG CAPSULE PO SCH (08:32)
[2020-04-08] MEDS: calcitrioL 0.25 MCG CAPSULE PO SCH ×3 (08:33→20:40)
[2020-04-08] MEDS: Topiramate 25 MG TABLET PO SCH ×2 (08:33→20:39)
[2020-04-08 10:19] LABS: BUN/Creatinine Ratio 22 (6-26); Blood Urea Nitrogen 16 mg/dL (6-20); Calcium 7.6 mg/dL (8.6-10.3); Carbon Dioxide 23 mEq/L (23-29); Chloride 110 mEq/L (98-107); Glucose 131 mg/dL (70-105); Osmolality,Calculated 293 (280-300); Potassium 3.1 mEq/L (3.5-5.1); Sodium 140 mEq/L (136-145); eGFR For African Americans > 60 (> 60); eGFR For Non-African Americans > 60 (> 60)
[2020-04-08] MEDS ORDERED: Potassium Chloride Elixir 20 MEQ/15 ML UDC PO ONE (11:36)
[2020-04-08] MEDS ORDERED: Potassium Chloride 40 MEQ, Lidocaine 1% 2 ML in 0.9 % Sodium Chloride 500 ML IVPB ONE (13:40)
[2020-04-08] MEDS ORDERED: Magnesium Sulfate 1 GM/102 ML PIGGYBACK IVPB ONE (17:08)
[2020-04-08] MEDS: traZODone 50 MG TABLET PO SCH (20:39)
[2020-04-08] MEDS: Mirtazapine 15 MG TABLET PO SCH (20:40)
[2020-04-08] MEDS: Ondansetron 4 MG/2 ML VIAL IVP PRN (20:41)
[2020-04-09] MEDS: 0.9 % Sodium Chloride 1,000 ML IVC SCH (01:32)
[2020-04-09 03:19] LABS: Hemoglobin 9.6 g/dL (11.5-15.4); Mean Corpuscular Hemoglobin 29.7 pg (28.0-33.3); Mean Platelet Volume 9.1 fL (9.4-12.4); Platelet Count 196 K/mcL (140-400); Red Blood Count 3.23 M/mcL (3.82-4.97); Red Cell Distribution Width 16.9 % (11.5-14.5); White Blood Count 6.5 K/mcL (4.3-11.1)
[2020-04-09 03:38] LABS: BUN/Creatinine Ratio 26 (6-26); Blood Urea Nitrogen 19 mg/dL (6-20); Calcium 8.9 mg/dL (8.6-10.3); Carbon Dioxide 27 mEq/L (23-29); Chloride 106 mEq/L (98-107); Glucose 85 mg/dL (70-105); Magnesium 1.5 mg/dL (1.6-2.6); Osmolality,Calculated 288 (280-300); Potassium 4.4 mEq/L (3.5-5.1); Sodium 138 mEq/L (136-145); eGFR For African Americans > 60 (> 60); eGFR For Non-African Americans > 60 (> 60)
[2020-04-09] MEDS: Ibuprofen 400 MG TABLET PO PRN (05:15)
[2020-04-09] MEDS ORDERED: Magnesium Sulfate 1 GM/102 ML PIGGYBACK IVPB ONE (07:30)
[2020-04-09] MEDS: hydrOXYzine pamoate 25 MG CAPSULE PO PRN (07:44)
[2020-04-09] MEDS: Topiramate 25 MG TABLET PO SCH (08:04)
[2020-04-09] MEDS: calcitrioL 0.25 MCG CAPSULE PO SCH (08:05)
[2020-04-09] MEDS: FLUoxetine 20 MG CAPSULE PO SCH (08:05)
[2020-04-09] MEDS: Ondansetron 4 MG/2 ML VIAL IVP PRN (08:59)
[2020-04-09] MEDS ORDERED: Ketorolac 15 MG/ML VIAL IVP ONE (09:01)
[2020-04-09 10:12] VITALS: BP 95/62
== END 2020-04-09 11:16 | disposition home or self-care (01) ==
LOC: SAMDAY 11:15 → 3ANU 18:39 → INTOOBSV 04-07 17:28 → 3ANU 04-07 17:28 → SUATTDRO 04-07 17:28
PROVIDERS: ADMIT Internal Medicine; ATTEND Pharmacist

== ENCOUNTER 2020-05-06 03:11 | Observation (INO) ==
[2020-05-06] MEDS ORDERED: Ondansetron ODT 4 MG TAB.RAPDIS SL ONE (03:22)
[2020-05-06] MEDS ORDERED: 0.9 % Sodium Chloride 1,000 ML IVC ONE ×2 (03:22→04:08)
[2020-05-06] MEDS ORDERED: *HR* FentaNYL (PF) 100 MCG/2 ML VIAL IVP STA ×2 (03:35→05:04)
[2020-05-06 03:41] LABS: Bilirubin,Urine Negative (Negative); Blood,Urine Negative (Negative); Clarity,Urine Clear (Clear); Color,Urine Light-Yellow (Yellow); Glucose,Urine (UA) Normal (Normal); Ketones,Urine Negative (Negative); Leukocyte Esterase,Urine Negative (Negative); Nitrite,Urine Negative (Negative); Protein,Urine Trace mg/dL (Neg-Trace); Urobilinogen,Urine Normal (Normal)
[2020-05-06 03:42] LABS: Basophils # 0.1 K/mcL (0.0-0.2); Basophils % 0.7 %; Eosinophils # 0.2 K/mcL (0.0-0.6); Eosinophils % 2.9 %; Hematocrit 38.8 % (35.3-44.9); Hemoglobin 12.2 g/dL (11.5-15.4); Immature Granulocytes % 0.4 % (0-4); Lymphocytes # 2.2 K/mcL (0.6-4.6); Mean Corpuscular HGB Conc 31.4 g/dL (31.6-35.5); Mean Corpuscular Hemoglobin 30.2 pg (28.0-33.3); Mean Platelet Volume 8.6 fL (9.4-12.4); Monocytes # 0.4 K/mcL (0.0-1.3); Monocytes % 5.6 %; Neutrophils # 4.4 K/mcL (1.6-8.9); Platelet Count 297 K/mcL (140-400); Red Blood Count 4.04 M/mcL (3.82-4.97); Segmented Neutrophils % 60.4 %; White Blood Count 7.3 K/mcL (4.3-11.1)
[2020-05-06 04:03] LABS: Alanine Aminotransferase 28 Units/L (7-52); Albumin 4.4 g/dL (3.5-5.7); Albumin/Globulin Ratio 1.5 (1.1-2.2); Alkaline Phosphatase 75 Units/L (34-104); Aspartate Amino Transferase 40 Units/L (13-39); BUN/Creatinine Ratio 22 (6-26); Bilirubin,Direct 0.1 mg/dL (0.0-0.2); Bilirubin,Indirect 0.1 mg/dL (0.0-1.0); Bilirubin,Total 0.2 mg/dL (0.3-1.0); Blood Urea Nitrogen 33 mg/dL (6-20); Calcium 9.3 mg/dL (8.6-10.3); Carbon Dioxide 25 mEq/L (23-29); Chloride 104 mEq/L (98-107); Globulin 2.9 g/dL (2.4-3.5); Glucose 82 mg/dL (70-105); Lipase 194 Units/L (11-82); Osmolality,Calculated 292 (280-300); Potassium 3.3 mEq/L (3.5-5.1); Sodium 138 mEq/L (136-145); Total Protein 7.3 g/dL (6.4-8.9); eGFR For African Americans 47 (> 60); eGFR For Non-African Americans 39 (> 60)
[2020-05-06] MEDS ORDERED: Ketorolac 15 MG/ML VIAL IVP ONE (04:03)
[2020-05-06 04:13] LABS: Troponin I < 0.03 ng/mL (< 0.04)
[2020-05-06 04:37] LABS: Magnesium 1.8 mg/dL (1.6-2.6); Phosphorous 5.2 mg/dL (2.7-4.5)
[2020-05-06 06:44] LABS: BUN/Creatinine Ratio 27 (6-26); Blood Urea Nitrogen 29 mg/dL (6-20); Carbon Dioxide 20 mEq/L (23-29); Chloride 111 mEq/L (98-107); Potassium 3.4 mEq/L (3.5-5.1); Sodium 139 mEq/L (136-145); eGFR For African Americans > 60 (> 60); eGFR For Non-African Americans 56 (> 60)
[2020-05-06 06:45] LABS: Calcium 7.5 mg/dL (8.6-10.3); Glucose 85 mg/dL (70-105); Osmolality,Calculated 293 (280-300)
[2020-05-06] MEDS ORDERED: Ondansetron 4 MG/2 ML VIAL IVP PRN (07:17)
[2020-05-06] MEDS ORDERED: Naloxone 0.4 MG/ML INJ IVP PRN (07:17)
[2020-05-06] MEDS: Calcium Gluconate 1gm/50mL 1 GM/50 ML BAG IVPB SCH ×2 (07:26→19:52)
[2020-05-06] MEDS ORDERED: Hyoscyamine SL 0.125 MG TAB.SUBL PO PRN (07:58)
[2020-05-06] MEDS ORDERED: hydrOXYzine pamoate 25 MG CAPSULE PO PRN (07:58)
[2020-05-06] MEDS ORDERED: Acetaminophen 325 MG TABLET PO PRN (07:58)
[2020-05-06] MEDS ORDERED: *HR* OxyCODONE Immed Rel 5 MG TABLET PO PRN (07:58)
[2020-05-06] MEDS ORDERED: SUMAtriptan succinate 50 MG TABLET PO PRN (07:58)
[2020-05-06] MEDS ORDERED: 0.45 % Sodium Chloride w/KCl 20 MEQ/1,000 ML MLS IVC SCH (08:15)
[2020-05-06] MEDS ORDERED: Potassium Chloride Elixir 20 MEQ/15 ML UDC PO ONE (08:34)
[2020-05-06] MEDS ORDERED: 0.9 % Sodium Chloride 500 ML IVC ONE (08:56)
[2020-05-06] MEDS: FLUoxetine 20 MG CAPSULE PO SCH (09:12)
[2020-05-06 09:21] LABS: VBG Ionized Calcium 1.06 mmol/L (1.15-1.35)
[2020-05-06] MEDS ORDERED: Calcium Gluconate 1gm/50mL 1 GM/50 ML BAG IVPB SCH (09:30)
[2020-05-06 10:04] LABS: Vitamin D 25 Hydroxy 53 ng/mL (30-80)
[2020-05-06] MEDS ORDERED: Morphine Sulfate 2 MG/ML SYRINGE IVP PRN (10:34)
[2020-05-06] MEDS: D5% in 0.45% NACL w KCl 20 MEQ/1,000 ML MLS IVC SCH ×2 (11:41→20:28)
[2020-05-06] MEDS: Pantoprazole 40 MG VIAL IVP SCH (11:41)
[2020-05-06] MEDS: calcitrioL 0.25 MCG CAPSULE PO SCH ×2 (11:42→20:27)
[2020-05-06 13:59] LABS: Alanine Aminotransferase 22 Units/L (7-52); Albumin 3.4 g/dL (3.5-5.7); Albumin/Globulin Ratio 1.6 (1.1-2.2); Alkaline Phosphatase 56 Units/L (34-104); Aspartate Amino Transferase 26 Units/L (13-39); BUN/Creatinine Ratio 24 (6-26); Bilirubin,Total 0.2 mg/dL (0.3-1.0); Blood Urea Nitrogen 22 mg/dL (6-20); Calcium 8.2 mg/dL (8.6-10.3); Carbon Dioxide 21 mEq/L (23-29); Chloride 112 mEq/L (98-107); Globulin 2.1 g/dL (2.4-3.5); Glucose 122 mg/dL (70-105); Osmolality,Calculated 289 (280-300); Sodium 137 mEq/L (136-145); Total Protein 5.5 g/dL (6.4-8.9); eGFR For African Americans > 60 (> 60); eGFR For Non-African Americans > 60 (> 60)
[2020-05-06] MEDS: Morphine Sulfate 2 MG/ML SYRINGE IVP PRN (15:44)
[2020-05-06 16:24] LABS: Bilirubin,Urine Negative (Negative); Blood,Urine Negative (Negative); Clarity,Urine Clear (Clear); Color,Urine Colorless (Yellow); Glucose,Urine (UA) Normal (Normal); Ketones,Urine Negative (Negative); Leukocyte Esterase,Urine Negative (Negative); Nitrite,Urine Negative (Negative); Protein,Urine Negative (Neg-Trace); Specific Gravity,Urine 1.012 (1.010-1.025); Urobilinogen,Urine Normal (Normal)
[2020-05-06] MEDS: *HR* Heparin 5,000 UNIT/ML VIAL SQ SCH (18:33)
[2020-05-06] MEDS: Mirtazapine 15 MG TABLET PO SCH (20:28)
[2020-05-06] MEDS: traZODone 50 MG TABLET PO SCH (20:28)
[2020-05-06] MEDS ORDERED: Acetaminophen IV 1,000 MG/100 ML INFUS..BTL IVPB ONE (22:57)
[2020-05-07 01:37] LABS: Hemoglobin 10.7 g/dL (11.5-15.4); Mean Corpuscular HGB Conc 30.6 g/dL (31.6-35.5); Mean Corpuscular Hemoglobin 30.3 pg (28.0-33.3); Mean Corpuscular Volume 99.2 fL (83.0-100.0); Mean Platelet Volume 8.8 fL (9.4-12.4); Platelet Count 233 K/mcL (140-400); Red Blood Count 3.53 M/mcL (3.82-4.97); Red Cell Distribution Width 16.7 % (11.5-14.5); White Blood Count 6.1 K/mcL (4.3-11.1)
[2020-05-07 01:47] LABS: VBG Ionized Calcium 1.03 mmol/L (1.15-1.35)
[2020-05-07 01:56] LABS: Alanine Aminotransferase 60 Units/L (7-52); Albumin 3.6 g/dL (3.5-5.7); Albumin/Globulin Ratio 1.6 (1.1-2.2); Alkaline Phosphatase 95 Units/L (34-104); Aspartate Amino Transferase 98 Units/L (13-39); BUN/Creatinine Ratio 15 (6-26); Bilirubin,Total 0.2 mg/dL (0.3-1.0); Blood Urea Nitrogen 13 mg/dL (6-20); Calcium 7.9 mg/dL (8.6-10.3); Carbon Dioxide 21 mEq/L (23-29); Chloride 111 mEq/L (98-107); Globulin 2.3 g/dL (2.4-3.5); Glucose 93 mg/dL (70-105); Magnesium 1.6 mg/dL (1.6-2.6); Osmolality,Calculated 284 (280-300); Phosphorous 3.7 mg/dL (2.7-4.5); Potassium 3.9 mEq/L (3.5-5.1); Sodium 137 mEq/L (136-145); Total Protein 5.9 g/dL (6.4-8.9); eGFR For African Americans > 60 (> 60); eGFR For Non-African Americans > 60 (> 60)
[2020-05-07] MEDS ORDERED: Ibuprofen 800 MG TABLET PO ONE (05:27)
[2020-05-07] MEDS: D5% in 0.45% NACL w KCl 20 MEQ/1,000 ML MLS IVC SCH ×2 (05:36→19:13)
[2020-05-07] MEDS: *HR* Heparin 5,000 UNIT/ML VIAL SQ SCH ×2 (05:36→19:17)
[2020-05-07] MEDS ORDERED: 0.9 % Sodium Chloride 1,000 ML IVC SCH (07:30)
[2020-05-07] MEDS: FLUoxetine 20 MG CAPSULE PO SCH (09:06)
[2020-05-07] MEDS: calcitrioL 0.25 MCG CAPSULE PO SCH ×2 (09:06→21:49)
[2020-05-07] MEDS: Morphine Sulfate 2 MG/ML SYRINGE IVP PRN ×4 (09:07→22:39)
[2020-05-07] MEDS: Pantoprazole 40 MG VIAL IVP SCH (09:13)
[2020-05-07] MEDS ORDERED: *HR* LORazepam 2 MG/ML VIAL IVP PRN ×3 (13:12)
[2020-05-07] MEDS: Folic Acid 1 MG TABLET PO SCH (13:44)
[2020-05-07] MEDS: Vitamin B Complex/Vit C/Vit E 1 EACH TABLET PO SCH (13:44)
[2020-05-07] MEDS: Thiamine (B-1) 100 MG TABLET PO SCH (13:45)
[2020-05-07 18:52] LABS: Hepatitis B Surface Antigen Nonreactive (Nonreactive)
[2020-05-07 19:19] LABS: Hepatitis C Virus Antibody Nonreactive (Nonreactive)
[2020-05-07 19:20] LABS: Hepatitis B Core IgM Nonreactive (Nonreactive)
[2020-05-07 19:22] LABS: Hepatitis A Antibody IgM Nonreactive (Nonreactive)
[2020-05-07] MEDS: Mirtazapine 15 MG TABLET PO SCH (21:48)
[2020-05-07] MEDS: traZODone 50 MG TABLET PO SCH (21:49)
[2020-05-08] MEDS: Morphine Sulfate 2 MG/ML SYRINGE IVP PRN (03:19)
[2020-05-08] MEDS: *HR* Heparin 5,000 UNIT/ML VIAL SQ SCH (05:38)
[2020-05-08 06:40] VITALS: BP 103/67
[2020-05-08 07:12] LABS: Alanine Aminotransferase 92 Units/L (7-52); Albumin 3.5 g/dL (3.5-5.7); Albumin/Globulin Ratio 1.5 (1.1-2.2); Alkaline Phosphatase 94 Units/L (34-104); Aspartate Amino Transferase 64 Units/L (13-39); BUN/Creatinine Ratio 19 (6-26); Bilirubin,Total 0.1 mg/dL (0.3-1.0); Blood Urea Nitrogen 15 mg/dL (6-20); Calcium 8.8 mg/dL (8.6-10.3); Carbon Dioxide 29 mEq/L (23-29); Chloride 104 mEq/L (98-107); Globulin 2.3 g/dL (2.4-3.5); Glucose 82 mg/dL (70-105); Osmolality,Calculated 286 (280-300); Potassium 3.8 mEq/L (3.5-5.1); Sodium 138 mEq/L (136-145); Total Protein 5.8 g/dL (6.4-8.9); eGFR For African Americans > 60 (> 60); eGFR For Non-African Americans > 60 (> 60)
[2020-05-08] MEDS: FLUoxetine 20 MG CAPSULE PO SCH (07:33)
[2020-05-08] MEDS: Thiamine (B-1) 100 MG TABLET PO SCH (07:33)
[2020-05-08] MEDS: Vitamin B Complex/Vit C/Vit E 1 EACH TABLET PO SCH (07:34)
[2020-05-08] MEDS: Folic Acid 1 MG TABLET PO SCH (07:34)
[2020-05-08] MEDS: calcitrioL 0.25 MCG CAPSULE PO SCH (07:34)
[2020-05-08 07:45] LABS: Hematocrit 32.7 % (35.3-44.9); Hemoglobin 10.5 g/dL (11.5-15.4); Mean Corpuscular Volume 97.6 fL (83.0-100.0); Red Blood Count 3.35 M/mcL (3.82-4.97); White Blood Count 4.8 K/mcL (4.3-11.1)
[2020-05-08 07:46] LABS: Mean Corpuscular HGB Conc 32.1 g/dL (31.6-35.5); Mean Corpuscular Hemoglobin 31.3 pg (28.0-33.3); Mean Platelet Volume 9.1 fL (9.4-12.4); Platelet Count 240 K/mcL (140-400); Red Cell Distribution Width 16.2 % (11.5-14.5)
[2020-05-10 03:33] LABS: Urine Collection Volume RANDOM mL
== END 2020-05-08 10:56 | disposition home or self-care (01) ==
LOC: EMEROOARM 03:11 → 3ANU 03:11 → SUATTDRO 07:33 → 3ANU 08:01
PROVIDERS: ADMIT Internal Medicine; ATTEND Family Medicine

== ENCOUNTER 2020-12-14 14:01 | Inpatient (IN) ==
[2020-12-14] MEDS ORDERED: 0.9 % Sodium Chloride 1,000 ML IVC ONE (14:20)
[2020-12-14] MEDS ORDERED: diazePAM 10 MG/2 ML SYRINGE IVP ONE (14:20)
[2020-12-14 14:43] LABS: Basophils % 0.6 %; Eosinophils # 0.2 K/mcL (0.0-0.6); Eosinophils % 2.5 %; Hematocrit 38.7 % (35.3-44.9); Hemoglobin 12.2 g/dL (11.5-15.4); Immature Granulocytes % 0.4 % (0-4); Lymphocytes # 1.7 K/mcL (0.6-4.6); Lymphocytes % 24.3 %; Mean Corpuscular HGB Conc 31.5 g/dL (31.6-35.5); Mean Corpuscular Hemoglobin 30.4 pg (28.0-33.3); Mean Corpuscular Volume 96.5 fL (83.0-100.0); Mean Platelet Volume 9.1 fL (9.4-12.4); Monocytes # 0.5 K/mcL (0.0-1.3); Monocytes % 6.8 %; Neutrophils # 4.7 K/mcL (1.6-8.9); Platelet Count 290 K/mcL (140-400); Red Blood Count 4.01 M/mcL (3.82-4.97); Segmented Neutrophils % 65.4 %; White Blood Count 7.2 K/mcL (4.3-11.1)
[2020-12-14 15:17] LABS: BUN/Creatinine Ratio 17 (6-26); Blood Urea Nitrogen 15 mg/dL (6-20); Carbon Dioxide 18 mEq/L (23-29); Chloride 108 mEq/L (98-107); Potassium 4.5 mEq/L (3.5-5.1); Sodium 134 mEq/L (136-145)
[2020-12-14 15:18] LABS: Acetaminophen < 10 mcg/mL (10-20); Alanine Aminotransferase 15 Units/L (7-52); Albumin 4.3 g/dL (3.5-5.7); Albumin/Globulin Ratio 1.3 (1.1-2.2); Alkaline Phosphatase 87 Units/L (34-104); Aspartate Amino Transferase 18 Units/L (13-39); Bilirubin,Total 0.2 mg/dL (0.3-1.0); Calcium 8.7 mg/dL (8.6-10.3); Ethanol < 10 mg/dL (Less than 10); Globulin 3.2 g/dL (2.4-3.5); Glucose 88 mg/dL (70-105); Lipase 66 Units/L (11-82); Osmolality,Calculated 278 (280-300); Salicylate 4.8 mg/dL (15.0-30.0); Thyroid Stimulating Hormone 1.482 mcIU/mL (0.340-5.600); Total Protein 7.5 g/dL (6.4-8.9); eGFR For African Americans > 60 (> 60); eGFR For Non-African Americans > 60 (> 60)
[2020-12-14 16:13] LABS: Amphetamine Screen,Urine Negative ng/mL (Cutoff=1000); Barbiturate Screen,Urine Negative ng/mL (Cutoff=200); Benzodiazepines Screen,Urine Negative ng/mL (Cutoff=200); Cannabinoid Screen,Urine Negative ng/mL (Cutoff = 50); Cocaine Screen,Urine Negative ng/mL (Cutoff= 300); Opiate Screen,Urine Negative ng/mL (Cutoff=300); Phencyclidine Screen,Urine Negative ng/mL (Cutoff=25)
[2020-12-14 16:16] LABS: Bacteria,Urine Few per hpf (None-Few); Bilirubin,Urine Negative (Negative); Blood,Urine Negative (Negative); Clarity,Urine Clear (Clear); Color,Urine Colorless (Yellow); Glucose,Urine (UA) Normal (Normal); Ketones,Urine Negative (Negative); Leukocyte Esterase,Urine Negative (Negative); Mucus,Urine Few per lpf (None-Few); Nitrite,Urine Negative (Negative); PH,Urine 6.5 pH Units (5.0-8.0); Protein,Urine Negative (Neg-Trace); RBC,Urine 0-3 per hpf (0-3); Specific Gravity,Urine 1.012 (1.010-1.025); Urobilinogen,Urine Normal (Normal)
[2020-12-14] MEDS ORDERED: Prochlorperazine 10 MG/2 ML VIAL IVP STA (16:21)
[2020-12-14] MEDS ORDERED: Naloxone 0.4 MG/ML INJ IVP PRN (16:39)
[2020-12-14] MEDS ORDERED: *HR* LORazepam 2 MG/ML VIAL IVP PRN ×2 (16:46)
[2020-12-14 16:59] LABS: Squamous Epithelial Cell,Urine Few per hpf (None-Few)
[2020-12-14] MEDS ORDERED: Ondansetron 4 MG/2 ML VIAL IVP PRN (18:21)
[2020-12-14] MEDS: Thiamine (B-1) 200 MG in 0.9 % Sodium Chloride 50 ML IVPB SCH (19:14)
[2020-12-14] MEDS ORDERED: traZODone 50 MG TABLET PO SCH (22:45)
[2020-12-15] MEDS: *HR* LORazepam 2 MG/ML VIAL IVP PRN ×5 (02:23→19:19)
[2020-12-15 05:25] LABS: Basophils % 0.8 %; Eosinophils # 0.2 K/mcL (0.0-0.6); Eosinophils % 3.4 %; Hematocrit 36.4 % (35.3-44.9); Hemoglobin 11.5 g/dL (11.5-15.4); Immature Granulocytes % 0.4 % (0-4); Lymphocytes # 1.9 K/mcL (0.6-4.6); Lymphocytes % 35.7 %; Mean Corpuscular HGB Conc 31.6 g/dL (31.6-35.5); Mean Corpuscular Hemoglobin 30.4 pg (28.0-33.3); Mean Corpuscular Volume 96.3 fL (83.0-100.0); Mean Platelet Volume 9.2 fL (9.4-12.4); Monocytes # 0.4 K/mcL (0.0-1.3); Monocytes % 6.8 %; Neutrophils # 2.8 K/mcL (1.6-8.9); Platelet Count 285 K/mcL (140-400); Red Blood Count 3.78 M/mcL (3.82-4.97); Red Cell Distribution Width 15.2 % (11.5-14.5); Segmented Neutrophils % 52.9 %; White Blood Count 5.3 K/mcL (4.3-11.1)
[2020-12-15 05:34] LABS: BUN/Creatinine Ratio 16 (6-26); Blood Urea Nitrogen 16 mg/dL (6-20); Calcium 8.9 mg/dL (8.6-10.3); Carbon Dioxide 25 mEq/L (23-29); Chloride 108 mEq/L (98-107); Glucose 97 mg/dL (70-105); Osmolality,Calculated 289 (280-300); Potassium 3.7 mEq/L (3.5-5.1); Sodium 139 mEq/L (136-145); eGFR For African Americans > 60 (> 60); eGFR For Non-African Americans > 60 (> 60)
[2020-12-15] MEDS: Vitamin B Complex/Vit C/Vit E 1 EACH TABLET PO SCH (09:38)
[2020-12-15] MEDS: Thiamine (B-1) 200 MG in 0.9 % Sodium Chloride 50 ML IVPB SCH (09:38)
[2020-12-15] MEDS ORDERED: hydrOXYzine pamoate 25 MG CAPSULE PO PRN (17:50)
[2020-12-15] MEDS ORDERED: *HR* LORazepam 2 MG/ML VIAL IVP PRN (17:58)
[2020-12-15] MEDS: traZODone 50 MG TABLET PO SCH (20:19)
[2020-12-15] MEDS: Topiramate 100 MG TABLET PO SCH (20:20)
[2020-12-15] MEDS: Gabapentin 300 MG CAPSULE PO SCH (20:20)
[2020-12-15] MEDS: Ketorolac 15 MG/ML VIAL IVP PRN (20:28)
[2020-12-15] MEDS ORDERED: NON-FORMULARY MEDICATION 1 EACH EACH (Trazodone Hcl 150 MG) PO SCH (21:00)
[2020-12-16 06:29] LABS: Hematocrit 36.7 % (35.3-44.9); Mean Corpuscular HGB Conc 32.7 g/dL (31.6-35.5); Mean Corpuscular Hemoglobin 30.8 pg (28.0-33.3); Mean Corpuscular Volume 94.1 fL (83.0-100.0); Mean Platelet Volume 8.9 fL (9.4-12.4); Platelet Count 270 K/mcL (140-400); Red Cell Distribution Width 14.5 % (11.5-14.5)
[2020-12-16 06:44] LABS: Alanine Aminotransferase 15 Units/L (7-52); Albumin 3.9 g/dL (3.5-5.7); Albumin/Globulin Ratio 1.4 (1.1-2.2); Alkaline Phosphatase 70 Units/L (34-104); Aspartate Amino Transferase 15 Units/L (13-39); BUN/Creatinine Ratio 22 (6-26); Bilirubin,Total 0.3 mg/dL (0.3-1.0); Blood Urea Nitrogen 22 mg/dL (6-20); Calcium 9.3 mg/dL (8.6-10.3); Carbon Dioxide 24 mEq/L (23-29); Chloride 104 mEq/L (98-107); Globulin 2.7 g/dL (2.4-3.5); Glucose 91 mg/dL (70-105); Osmolality,Calculated 285 (280-300); Potassium 3.7 mEq/L (3.5-5.1); Sodium 136 mEq/L (136-145); Total Protein 6.6 g/dL (6.4-8.9); eGFR For African Americans > 60 (> 60); eGFR For Non-African Americans > 60 (> 60)
[2020-12-16] MEDS: Vitamin B Complex/Vit C/Vit E 1 EACH TABLET PO SCH (08:09)
[2020-12-16] MEDS: FLUoxetine 20 MG CAPSULE PO SCH (08:11)
[2020-12-16] MEDS: Gabapentin 300 MG CAPSULE PO SCH ×3 (08:12→20:18)
[2020-12-16] MEDS: Topiramate 100 MG TABLET PO SCH ×2 (08:13→20:17)
[2020-12-16] MEDS: *HR* LORazepam 2 MG/ML VIAL IVP PRN ×2 (08:40→15:48)
[2020-12-16] MEDS: Ketorolac 15 MG/ML VIAL IVP PRN ×2 (10:11→17:14)
[2020-12-16] MEDS: Thiamine (B-1) 200 MG in 0.9 % Sodium Chloride 50 ML IVPB SCH (10:12)
[2020-12-16] MEDS: Acetaminophen 325 MG TABLET PO PRN ×2 (11:39→20:18)
[2020-12-16] MEDS ORDERED: Acetaminophen IV 500 MG/50 ML BAG IVPB ONE (13:19)
[2020-12-16] MEDS: traZODone 50 MG TABLET PO SCH (20:18)
[2020-12-17 03:46] LABS: Hematocrit 36.3 % (35.3-44.9); Hemoglobin 11.8 g/dL (11.5-15.4); Mean Corpuscular HGB Conc 32.5 g/dL (31.6-35.5); Mean Corpuscular Hemoglobin 30.8 pg (28.0-33.3); Mean Corpuscular Volume 94.8 fL (83.0-100.0); Mean Platelet Volume 9.2 fL (9.4-12.4); Platelet Count 273 K/mcL (140-400); Red Blood Count 3.83 M/mcL (3.82-4.97); Red Cell Distribution Width 14.6 % (11.5-14.5); White Blood Count 5.3 K/mcL (4.3-11.1)
[2020-12-17 04:09] LABS: Alanine Aminotransferase 16 Units/L (7-52); Albumin 3.9 g/dL (3.5-5.7); Albumin/Globulin Ratio 1.4 (1.1-2.2); Alkaline Phosphatase 74 Units/L (34-104); Aspartate Amino Transferase 16 Units/L (13-39); BUN/Creatinine Ratio 27 (6-26); Bilirubin,Total 0.2 mg/dL (0.3-1.0); Blood Urea Nitrogen 30 mg/dL (6-20); Calcium 9.7 mg/dL (8.6-10.3); Carbon Dioxide 22 mEq/L (23-29); Chloride 104 mEq/L (98-107); Globulin 2.7 g/dL (2.4-3.5); Glucose 89 mg/dL (70-105); Osmolality,Calculated 286 (280-300); Potassium 3.9 mEq/L (3.5-5.1); Sodium 135 mEq/L (136-145); Total Protein 6.6 g/dL (6.4-8.9); eGFR For African Americans > 60 (> 60); eGFR For Non-African Americans 55 (> 60)
[2020-12-17] MEDS ORDERED: 0.9 % Sodium Chloride 1,000 ML IVC SCH (07:45)
[2020-12-17] MEDS: Vitamin B Complex/Vit C/Vit E 1 EACH TABLET PO SCH (08:38)
[2020-12-17] MEDS: Topiramate 100 MG TABLET PO SCH ×2 (08:38→22:17)
[2020-12-17] MEDS: Gabapentin 300 MG CAPSULE PO SCH ×3 (08:38→22:17)
[2020-12-17] MEDS: FLUoxetine 20 MG CAPSULE PO SCH (08:38)
[2020-12-17] MEDS: Acetaminophen 325 MG TABLET PO PRN (08:43)
[2020-12-17] MEDS ORDERED: Acetaminophen IV 500 MG/50 ML BAG IVPB ONE (12:11)
[2020-12-17] MEDS: Ketorolac 15 MG/ML VIAL IVP PRN (18:23)
[2020-12-17] MEDS: traZODone 50 MG TABLET PO SCH (22:16)
[2020-12-17] MEDS: *HR* LORazepam 2 MG/ML VIAL IVP PRN (22:17)
[2020-12-18 07:49] LABS: BUN/Creatinine Ratio 26 (6-26); Blood Urea Nitrogen 24 mg/dL (6-20); Calcium 8.7 mg/dL (8.6-10.3); Carbon Dioxide 24 mEq/L (23-29); Chloride 107 mEq/L (98-107); Glucose 89 mg/dL (70-105); Osmolality,Calculated 290 (280-300); Potassium 3.8 mEq/L (3.5-5.1); Sodium 138 mEq/L (136-145); eGFR For African Americans > 60 (> 60); eGFR For Non-African Americans > 60 (> 60)
[2020-12-18] MEDS: Topiramate 100 MG TABLET PO SCH (08:17)
[2020-12-18] MEDS: Vitamin B Complex/Vit C/Vit E 1 EACH TABLET PO SCH (08:17)
[2020-12-18] MEDS: FLUoxetine 20 MG CAPSULE PO SCH (08:17)
[2020-12-18] MEDS: Gabapentin 300 MG CAPSULE PO SCH (09:09)
[2020-12-18 09:26] VITALS: BP 111/70
== END 2020-12-18 11:45 | disposition home or self-care (01) | DRG 775 ==
LOC: 3BNU 14:01 → EMEROOARM 14:01 → SUATTDRO 16:25 → 3BNU 17:19
PROVIDERS: ADMIT Internal Medicine; ATTEND Registered Nurse

== ENCOUNTER 2021-12-02 11:39 | Observation (INO) ==
[2021-12-02] MEDS ORDERED: Ketorolac 30 MG/ML VIAL IVP ONE (12:25)
[2021-12-02 12:27] LABS: Basophils # 0.1 K/mcL (0.0-0.2); Basophils % 1.1 %; Eosinophils # 0.2 K/mcL (0.0-0.6); Eosinophils % 2.8 %; Hematocrit 26.7 % (35.3-44.9); Hemoglobin 7.9 g/dL (11.5-15.4); Immature Granulocytes % 0.4 % (0-4); Lymphocytes # 2.1 K/mcL (0.6-4.6); Lymphocytes % 28.5 %; Mean Corpuscular HGB Conc 29.6 g/dL (31.6-35.5); Mean Corpuscular Hemoglobin 22.5 pg (28.0-33.3); Mean Corpuscular Volume 76.1 fL (83.0-100.0); Mean Platelet Volume 9.6 fL (9.4-12.4); Monocytes # 0.6 K/mcL (0.0-1.3); Monocytes % 7.3 %; Neutrophils # 4.5 K/mcL (1.6-8.9); Platelet Count 425 K/mcL (140-400); Red Blood Count 3.51 M/mcL (3.82-4.97); Segmented Neutrophils % 59.9 %; White Blood Count 7.5 K/mcL (4.3-11.1)
[2021-12-02 12:39] LABS: Bacteria,Urine Few per hpf (None-Few); Bilirubin,Urine Negative (Negative); Blood,Urine Negative (Negative); Clarity,Urine Turbid (Clear); Color,Urine Yellow (Yellow); Glucose,Urine (UA) Normal (Normal); Ketones,Urine Negative (Negative); Leukocyte Esterase,Urine Negative (Negative); Mucus,Urine Many per lpf (None-Few); Nitrite,Urine Negative (Negative); Protein,Urine 70 mg/dL (Neg-Trace); Specific Gravity,Urine > 1.030 (1.010-1.025); Squamous Epithelial Cell,Urine Moderate per hpf (None-Few); Urobilinogen,Urine Normal (Normal)
[2021-12-02 13:02] LABS: Influenza A PCR Negative (Negative); Influenza B PCR Negative (Negative); Resp. Syncytial Virus PCR Negative (Negative); SARS-CoV-2 by PCR (In House) Negative (Negative)
[2021-12-02 13:12] LABS: Alanine Aminotransferase 11 Units/L (7-52); Albumin/Globulin Ratio 1.4 (1.1-2.2); Alkaline Phosphatase 62 Units/L (34-104); Amylase 35 Units/L (29-103); Aspartate Amino Transferase 11 Units/L (13-39); BUN/Creatinine Ratio 18 (6-26); Bilirubin,Indirect 0.2 mg/dL (0.0-1.0); Bilirubin,Total 0.2 mg/dL (0.3-1.0); Blood Urea Nitrogen 16 mg/dL (6-20); Calcium 8.5 mg/dL (8.6-10.3); Carbon Dioxide 22 mEq/L (23-29); Chloride 108 mEq/L (98-107); Globulin 2.9 g/dL (2.4-3.5); Glucose 92 mg/dL (70-105); Lipase 46 Units/L (11-82); Osmolality,Calculated 289 (280-300); Potassium 3.5 mEq/L (3.5-5.1); Sodium 139 mEq/L (136-145); Total Protein 6.9 g/dL (6.4-8.9); eGFR For African Americans > 60 (> 60); eGFR For Non-African Americans > 60 (> 60)
[2021-12-02] MEDS ORDERED: Morphine Sulfate 2 MG/ML SYRINGE IVP ONE ×2 (13:36→15:38)
[2021-12-02] MEDS ORDERED: Pantoprazole 40 MG VIAL IVP ONE (14:04)
[2021-12-02 14:33] LABS: % Iron Saturation 2 % (15-50); Iron 13 mcg/dL (50-170); Transferrin 391 mg/dL (203-362)
[2021-12-02] MEDS ORDERED: Naloxone 0.4 MG/ML INJ IVP PRN (14:58)
[2021-12-02] MEDS ORDERED: Melatonin 3 MG TABLET PO PRN (14:58)
[2021-12-02] MEDS ORDERED: Ondansetron 4 MG/2 ML VIAL IVP PRN (14:58)
[2021-12-02] MEDS: 0.9 % Sodium Chloride 1,000 ML IVC SCH (15:49)
[2021-12-02] MEDS ORDERED: SODIUM CHLORIDE/NAHCO3/KCL/PEG 4,000 ML SOLN.RECON PO ONE (17:00)
[2021-12-02] MEDS ORDERED: Pantoprazole 40 MG VIAL IVP SCH (18:00)
[2021-12-02 19:11] LABS: Hematocrit 26.1 % (35.3-44.9); Hemoglobin 7.5 g/dL (11.5-15.4)
[2021-12-03 00:42] LABS: Basophils # 0.1 K/mcL (0.0-0.2); Basophils % 0.7 %; Eosinophils # 0.1 K/mcL (0.0-0.6); Eosinophils % 1.5 %; Hematocrit 23.3 % (35.3-44.9); Hemoglobin 6.9 g/dL (11.5-15.4); Immature Granulocytes % 0.4 % (0-4); Lymphocytes # 1.6 K/mcL (0.6-4.6); Mean Corpuscular HGB Conc 29.6 g/dL (31.6-35.5); Mean Corpuscular Hemoglobin 22.5 pg (28.0-33.3); Mean Corpuscular Volume 76.1 fL (83.0-100.0); Mean Platelet Volume 8.5 fL (9.4-12.4); Monocytes # 0.4 K/mcL (0.0-1.3); Monocytes % 5.6 %; Neutrophils # 5.4 K/mcL (1.6-8.9); Platelet Count 340 K/mcL (140-400); Red Blood Count 3.06 M/mcL (3.82-4.97); Red Cell Distribution Width 17.6 % (11.5-14.5); Segmented Neutrophils % 70.8 %; White Blood Count 7.5 K/mcL (4.3-11.1)
[2021-12-03] MEDS: 0.9 % Sodium Chloride 1,000 ML IVC SCH (01:18)
[2021-12-03] MEDS ORDERED: 0.9 % Sodium Chloride 250 ML ONE (03:00)
[2021-12-03] MEDS ORDERED: Pantoprazole 40 MG VIAL IVP SCH (06:00)
[2021-12-03] MEDS ORDERED: Lidocaine -MPF 2% 5 ML VIAL ONE (07:21)
[2021-12-03] MEDS: calcitrioL 0.25 MCG CAPSULE PO SCH ×2 (11:35→20:15)
[2021-12-03] MEDS ORDERED: Ketorolac 30 MG/ML VIAL IVP ONE (12:03)
[2021-12-03] MEDS ORDERED: Ondansetron 4 MG/2 ML VIAL IVP ONE (12:03)
[2021-12-03 12:21] LABS: Hematocrit 28.4 % (35.3-44.9); Hemoglobin 8.4 g/dL (11.5-15.4)
[2021-12-03] MEDS: Hydrocortisone Acetate 25 MG RECTAL SUPPOSITORY RC SCH ×2 (13:52→20:23)
[2021-12-03 18:32] LABS: Hematocrit 27.7 % (35.3-44.9)
[2021-12-03] MEDS: Topiramate 100 MG TABLET PO SCH (20:16)
[2021-12-03] MEDS ORDERED: QUEtiapine Fumarate 100 MG TABLET PO SCH (21:00)
[2021-12-04 02:10] LABS: Hematocrit 25.6 % (35.3-44.9); Hemoglobin 7.7 g/dL (11.5-15.4)
[2021-12-04 05:43] LABS: Basophils # 0.1 K/mcL (0.0-0.2); Basophils % 0.8 %; Eosinophils # 0.2 K/mcL (0.0-0.6); Eosinophils % 3.5 %; Hematocrit 25.7 % (35.3-44.9); Hemoglobin 7.5 g/dL (11.5-15.4); Immature Granulocytes % 0.3 % (0-4); Lymphocytes % 34.1 %; Mean Corpuscular HGB Conc 29.2 g/dL (31.6-35.5); Mean Corpuscular Hemoglobin 22.5 pg (28.0-33.3); Mean Corpuscular Volume 76.9 fL (83.0-100.0); Mean Platelet Volume 9.5 fL (9.4-12.4); Monocytes # 0.5 K/mcL (0.0-1.3); Monocytes % 7.6 %; Neutrophils # 3.2 K/mcL (1.6-8.9); Platelet Count 366 K/mcL (140-400); Red Blood Count 3.34 M/mcL (3.82-4.97); Red Cell Distribution Width 17.9 % (11.5-14.5); Segmented Neutrophils % 53.7 %
[2021-12-04 07:14] VITALS: TEMP 98.1
[2021-12-04] MEDS ORDERED: Iron Sucrose Complex 200 MG in 0.9 % Sodium Chloride 100 ML IVPB ONE (07:53)
[2021-12-04] MEDS: Hydrocortisone Acetate 25 MG RECTAL SUPPOSITORY RC SCH (08:36)
[2021-12-04] MEDS: calcitrioL 0.25 MCG CAPSULE PO SCH (08:36)
[2021-12-04] MEDS: Topiramate 100 MG TABLET PO SCH (08:36)
[2021-12-04] MEDS ORDERED: Ketorolac 30 MG/ML VIAL IVP ONE (10:08)
[2021-12-04] MEDS ORDERED: Ondansetron 4 MG/2 ML VIAL IVP ONE (10:09)
[2021-12-04 10:54] VITALS: BP 96/63; PULSE 74; O2SAT 97
[2021-12-04 13:35] LABS: Hematocrit 26.5 % (35.3-44.9); Hemoglobin 7.9 g/dL (11.5-15.4)
== END 2021-12-04 15:15 | disposition home or self-care (01) ==
LOC: EMEROOARM 11:39 → 3BNU 11:39
PROVIDERS: ADMIT Student in an Organized Health Care Education/Training Program; ATTEND Student in an Organized Health Care Education/Training Program

== ENCOUNTER 2022-07-17 16:47 | Observation (INO) ==
[2022-07-17] MEDS ORDERED: *HR* HYDROmorphone (PF) 1 MG/ML SYRINGE IVP ONE ×2 (17:16→21:00)
[2022-07-17] MEDS ORDERED: 0.9 % Sodium Chloride 1,000 ML IVC ONE (17:16)
[2022-07-17] MEDS ORDERED: Ondansetron 4 MG/2 ML VIAL IVP ONE (17:40)
[2022-07-17 18:11] LABS: Bilirubin,Urine Negative (Negative); Blood,Urine Large (Negative); Clarity,Urine Ex.Turbid (Clear); Color,Urine Dark-Yellow (Yellow); Glucose,Urine (UA) Normal (Normal); Ketones,Urine Negative (Negative); Leukocyte Esterase,Urine Small (Negative); Mucus,Urine Few per lpf (None-Few); Nitrite,Urine Negative (Negative); PH,Urine 6.5 pH Units (5.0-8.0); Protein,Urine 100 mg/dL (Neg-Trace); RBC,Urine TNTC per hpf (0-3); Specific Gravity,Urine 1.024 (1.010-1.025); Squamous Epithelial Cell,Urine Many per hpf (None-Few); Transitional Epi Cells,Urine Few per hpf (None-Few); Urobilinogen,Urine Normal (Normal); WBC,Urine TNTC per hpf (0-3)
[2022-07-17 18:28] LABS: Calcium 8.2 mg/dL (8.6-10.3); Potassium 3.9 mEq/L (3.5-5.1)
[2022-07-17 18:48] LABS: Eosinophils % 1.7 %; Hematocrit 32.4 % (35.3-44.9); Hemoglobin 10.4 g/dL (11.5-15.4); Immature Granulocytes % 0.4 % (0-4); Lymphocytes % 24.8 %; Mean Corpuscular HGB Conc 32.1 g/dL (31.6-35.5); Mean Corpuscular Hemoglobin 28.7 pg (28.0-33.3); Mean Corpuscular Volume 89.3 fL (83.0-100.0); Mean Platelet Volume 10.1 fL (9.4-12.4); Monocytes % 9.9 %; Platelet Count 221 K/mcL (140-400); Red Blood Count 3.63 M/mcL (3.82-4.97); Red Cell Distribution Width 17.1 % (11.5-14.5); Segmented Neutrophils % 62.7 %; White Blood Count 8.3 K/mcL (4.3-11.1)
[2022-07-17 18:49] LABS: Basophils % 0.5 %; Eosinophils # 0.1 K/mcL (0.0-0.6); Lymphocytes # 2.1 K/mcL (0.6-4.6); Monocytes # 0.8 K/mcL (0.0-1.3); Neutrophils # 5.2 K/mcL (1.6-8.9)
[2022-07-17] MEDS ORDERED: hydrOXYzine pamoate 25 MG CAPSULE PO ONE (18:53)
[2022-07-17] MEDS ORDERED: Acetaminophen 325 MG TABLET PO PRN (20:11)
[2022-07-17] MEDS ORDERED: Ondansetron 4 MG/2 ML VIAL IVP PRN (20:11)
[2022-07-17] MEDS ORDERED: Naloxone 0.4 MG/ML INJ IVP PRN (20:11)
[2022-07-17] MEDS ORDERED: *HR* HYDROmorphone (PF) 1 MG/ML SYRINGE IVP PRN (21:56)
[2022-07-17] MEDS: 0.9 % Sodium Chloride 1,000 ML IVC SCH (22:48)
[2022-07-18] MEDS ORDERED: SUMAtriptan succinate 50 MG TABLET PO PRN (01:32)
[2022-07-18] MEDS ORDERED: *HR* HYDROmorphone (PF) 1 MG/ML SYRINGE IVP ONE (04:45)
[2022-07-18 04:52] LABS: Basophils % 0.6 %; Eosinophils # 0.1 K/mcL (0.0-0.6); Eosinophils % 1.4 %; Hematocrit 29.8 % (35.3-44.9); Hemoglobin 9.5 g/dL (11.5-15.4); Immature Granulocytes % 0.3 % (0-4); Lymphocytes # 2.5 K/mcL (0.6-4.6); Lymphocytes % 39.8 %; Mean Corpuscular HGB Conc 31.9 g/dL (31.6-35.5); Mean Corpuscular Hemoglobin 28.7 pg (28.0-33.3); Mean Platelet Volume 9.3 fL (9.4-12.4); Monocytes # 0.6 K/mcL (0.0-1.3); Monocytes % 9.3 %; Neutrophils # 3.1 K/mcL (1.6-8.9); Platelet Count 250 K/mcL (140-400); Red Blood Count 3.31 M/mcL (3.82-4.97); Red Cell Distribution Width 17.2 % (11.5-14.5); Segmented Neutrophils % 48.6 %; White Blood Count 6.3 K/mcL (4.3-11.1)
[2022-07-18 05:00] LABS: Prothrombin Time 10.9 Seconds (9.4-12.1)
[2022-07-18 05:14] LABS: Albumin 3.3 g/dL (3.5-5.7); Albumin/Globulin Ratio 1.5 (1.1-2.2); Bilirubin,Direct 0.1 mg/dL (0.0-0.2); Bilirubin,Total 0.1 mg/dL (0.3-1.0); Globulin 2.2 g/dL (2.4-3.5); Magnesium 1.9 mg/dL (1.6-2.6); Phosphorous 4.2 mg/dL (2.7-4.5); Total Protein 5.5 g/dL (6.4-8.9)
[2022-07-18 05:27] LABS: Thyroid Stimulating Hormone 0.33 mcIU/mL (0.340-5.600)
[2022-07-18] MEDS: Pregabalin 75 MG CAPSULE PO SCH ×3 (08:28→20:17)
[2022-07-18] MEDS: Loratadine 10 MG TABLET PO SCH (08:28)
[2022-07-18] MEDS: 0.9 % Sodium Chloride 1,000 ML IVC SCH ×2 (08:29→16:40)
[2022-07-18] MEDS: Topiramate 100 MG TABLET PO SCH ×2 (08:29→20:16)
[2022-07-18] MEDS: Ascorbic Acid 500 MG TABLET PO SCH (08:43)
[2022-07-18] MEDS: Sucralfate 1 GM TABLET PO SCH ×2 (08:43→20:18)
[2022-07-18] MEDS: Pantoprazole 40 MG VIAL IVP SCH (10:02)
[2022-07-18] MEDS: Ketorolac 30 MG/ML VIAL IVP SCH ×3 (10:03→21:40)
[2022-07-18] MEDS: *HR* OxyCODONE Immed Rel 5 MG TABLET PO PRN ×2 (12:30→20:17)
[2022-07-18] MEDS: *HR* Heparin 5,000 UNIT/ML VIAL SQ SCH (16:45)
[2022-07-18] MEDS ORDERED: QUEtiapine Fumarate 100 MG TABLET PO SCH (21:00)
[2022-07-19] MEDS: Ketorolac 30 MG/ML VIAL IVP SCH ×4 (02:50→19:55)
[2022-07-19] MEDS: 0.9 % Sodium Chloride 1,000 ML IVC SCH ×3 (02:51→21:30)
[2022-07-19 05:09] LABS: Basophils # 0.1 K/mcL (0.0-0.2); Basophils % 0.9 %; Eosinophils # 0.1 K/mcL (0.0-0.6); Eosinophils % 1.6 %; Hematocrit 30.8 % (35.3-44.9); Hemoglobin 9.8 g/dL (11.5-15.4); Immature Granulocytes % 0.4 % (0-4); Lymphocytes # 2.4 K/mcL (0.6-4.6); Lymphocytes % 42.4 %; Mean Corpuscular HGB Conc 31.8 g/dL (31.6-35.5); Mean Corpuscular Hemoglobin 29.4 pg (28.0-33.3); Mean Corpuscular Volume 92.5 fL (83.0-100.0); Mean Platelet Volume 9.7 fL (9.4-12.4); Monocytes # 0.5 K/mcL (0.0-1.3); Monocytes % 9.5 %; Neutrophils # 2.5 K/mcL (1.6-8.9); Platelet Count 244 K/mcL (140-400); Red Blood Count 3.33 M/mcL (3.82-4.97); Red Cell Distribution Width 17.4 % (11.5-14.5); Segmented Neutrophils % 45.2 %; White Blood Count 5.6 K/mcL (4.3-11.1)
[2022-07-19 05:24] LABS: BUN/Creatinine Ratio 22 (6-26); Blood Urea Nitrogen 18 mg/dL (6-20); Calcium 8.4 mg/dL (8.6-10.3); Carbon Dioxide 24 mEq/L (23-29); Chloride 113 mEq/L (98-107); Glucose 91 mg/dL (70-105); Osmolality,Calculated 293 (280-300); Phosphorous 5.3 mg/dL (2.7-4.5); Potassium 4.5 mEq/L (3.5-5.1); Sodium 141 mEq/L (136-145)
[2022-07-19] MEDS: *HR* Heparin 5,000 UNIT/ML VIAL SQ SCH ×2 (05:34→17:37)
[2022-07-19] MEDS: Pantoprazole 40 MG VIAL IVP SCH (08:21)
[2022-07-19] MEDS: Pregabalin 75 MG CAPSULE PO SCH ×3 (08:22→21:28)
[2022-07-19] MEDS: *HR* OxyCODONE Immed Rel 5 MG TABLET PO PRN ×2 (08:22→14:55)
[2022-07-19] MEDS: Sucralfate 1 GM TABLET PO SCH (08:23)
[2022-07-19] MEDS: Topiramate 100 MG TABLET PO SCH (08:23)
[2022-07-19] MEDS: Ascorbic Acid 500 MG TABLET PO SCH (08:23)
[2022-07-19] MEDS: Loratadine 10 MG TABLET PO SCH (08:23)
[2022-07-19] MEDS ORDERED: Cholestyramine 4 GM POWD.PACK PO SCH (09:30)
[2022-07-19] MEDS ORDERED: Pregabalin 75 MG CAPSULE PO SCH (15:00)
[2022-07-19] MEDS ORDERED: *HR* HYDROmorphone PF 0.5 MG/0.5 ML SYRINGE IVP PRN (17:56)
[2022-07-19] MEDS ORDERED: *HR* Propofol 200 MG/20 ML VIAL IVP ONE (18:06)
[2022-07-19] MEDS ORDERED: Scopolamine Patch 1.5 MG PATCH.TD72 ONE (18:06)
[2022-07-19] MEDS ORDERED: *HR* FentaNYL (PF) 100 MCG/2 ML VIAL ONE (18:06)
[2022-07-19] MEDS ORDERED: Lidocaine -MPF 2% 5 ML VIAL ONE (18:07)
[2022-07-19] MEDS ORDERED: *HR* Succinylcholine 200 MG/10 ML VIAL IVP ONE (18:07)
[2022-07-19] MEDS ORDERED: Iopamidol - 300 50 ML VIAL ONE (18:26)
[2022-07-19] MEDS ORDERED: Ondansetron 4 MG/2 ML VIAL ONE (18:31)
[2022-07-19] MEDS ORDERED: EPHEDrine 50 MG/ML VIAL ONE (19:00)
[2022-07-19] MEDS ORDERED: Naloxone 0.4 MG/ML INJ IVP PRN (20:36)
[2022-07-19] MEDS ORDERED: *HR* Belladonna Alkaloids/Opium 30 MG RECTAL SUPPOSITORY RC PRN (20:36)
[2022-07-19] MEDS ORDERED: *HR* OxyCODONE Immed Rel 5 MG TABLET PO PRN (20:36)
[2022-07-19] MEDS ORDERED: SUMAtriptan succinate 50 MG TABLET PO PRN (20:36)
[2022-07-19] MEDS ORDERED: hydrOXYzine pamoate 25 MG CAPSULE PO SCH (21:00)
[2022-07-19] MEDS ORDERED: Ondansetron 4 MG/2 ML VIAL IVP PRN (21:00)
[2022-07-19] MEDS ORDERED: QUEtiapine Fumarate 100 MG TABLET PO SCH (21:00)
[2022-07-19] MEDS ORDERED: Topiramate 100 MG TABLET PO SCH (21:00)
[2022-07-19] MEDS ORDERED: Sucralfate 1 GM TABLET PO SCH (21:00)
[2022-07-19] MEDS ORDERED: Acetaminophen 325 MG TABLET PO PRN (21:00)
[2022-07-19] MEDS ORDERED: Ketorolac 30 MG/ML VIAL IVP SCH (21:45)
[2022-07-20] MEDS ORDERED: Ketorolac 30 MG/ML VIAL IVP SCH (01:00)
[2022-07-20 03:09] VITALS: O2SAT 96
[2022-07-20 05:59] LABS: Basophils % 0.2 %; Hemoglobin 9.5 g/dL (11.5-15.4); Immature Granulocytes % 0.2 % (0-4); Lymphocytes # 0.4 K/mcL (0.6-4.6); Lymphocytes % 9.6 %; Mean Corpuscular HGB Conc 31.7 g/dL (31.6-35.5); Mean Corpuscular Hemoglobin 28.8 pg (28.0-33.3); Mean Corpuscular Volume 90.9 fL (83.0-100.0); Mean Platelet Volume 9.8 fL (9.4-12.4); Monocytes # 0.3 K/mcL (0.0-1.3); Monocytes % 5.7 %; Neutrophils # 3.9 K/mcL (1.6-8.9); Platelet Count 250 K/mcL (140-400); Red Cell Distribution Width 17.1 % (11.5-14.5); Segmented Neutrophils % 84.3 %; White Blood Count 4.6 K/mcL (4.3-11.1)
[2022-07-20] MEDS ORDERED: *HR* Heparin 5,000 UNIT/ML VIAL SQ SCH (06:00)
[2022-07-20 06:25] LABS: Calcium 8.2 mg/dL (8.6-10.3); Magnesium 1.9 mg/dL (1.6-2.6); Potassium 4.1 mEq/L (3.5-5.1)
[2022-07-20 06:56] VITALS: BP 100/64; PULSE 74; TEMP 98.3
[2022-07-20] MEDS ORDERED: Loratadine 10 MG TABLET PO SCH (09:00)
[2022-07-20] MEDS ORDERED: Pantoprazole 40 MG VIAL IVP SCH (09:00)
[2022-07-20] MEDS ORDERED: Ascorbic Acid 500 MG TABLET PO SCH (09:00)
[2022-07-20] MEDS: Pregabalin 75 MG CAPSULE PO SCH (11:13)
[2022-07-20] MEDS: 0.9 % Sodium Chloride 1,000 ML IVC SCH (11:50)
[2022-07-21] MEDS ORDERED: Cholestyramine 4 GM POWD.PACK PO SCH (09:30)
== END 2022-07-20 12:00 | disposition home or self-care (01) ==
LOC: EMEROOARM 16:47 → 3BNU 16:47 → SUATTDRO 20:13 → 3BNU 21:06
PROVIDERS: ADMIT Student in an Organized Health Care Education/Training Program; ATTEND Internal Medicine